=== PATIENT | female | born 1945 | race Caucasian/White ===

== ENCOUNTER 2023-12-30 18:44 | Inpatient (IN) | payer OTHER, SELFPAY ==
--- NOTE | ~2023-12-30 | CT_ITS ---
EXAMINATION: CT HEAD WITHOUT CONTRAST CLINICAL INFORMATION: Altered mental status. COMPARISON: No relevant prior imaging. TECHNIQUE: Contiguous axial imaging was performed from the skull base to vertex without intravenous administration of contrast. This CT examination was performed using dose optimization techniques as appropriate, variously including the following: *Automated exposure control *Adjustment of mA and/or kV according to patient size (this includes techniques or standardized protocols for targeted exams where dose is matched to indication/reason for exam; i.e. extremities or head) *Use of iterative reconstruction technique DLP: 675 mGy-cm FINDINGS: There is no acute intracranial hemorrhage or abnormal extra-axial collection. No intracranial mass effect or midline shift. Lateral and third ventricles are proportionate to the subarachnoid spaces. No hydrocephalus. Scattered nonspecific foci of hypoattenuation are visualized within the periventricular white matter. Robertson-white matter differentiation is otherwise preserved and there is no evidence of acute territorial infarct. The calvarium and skull base are intact. Mastoid air cells and middle ear cavities are well aerated. Mild paranasal sinus disease primarily affecting the ethmoid air cells. Severe degenerative arthrosis of the right temporomandibular joint is noted. CT/CT head/brain wo IV con IMPRESSION: There are scattered chronic small vessel ischemic changes within the periventricular white matter. Otherwise unremarkable examination. No evidence of acute territorial infarct or hemorrhage.
[2023-12-30 20:08] VITALS: BMI 17.2
[2023-12-30 20:09] VITALS: BP 150/67; PULSE 89; RESP 18; TEMP 36.6; O2SAT 99
--- NOTE | 2023-12-31 00:03 | HO.PSYEVENT2 ---
Event Note Date of Service: 12/31/23 Psych On-Call Event Note: Patient referred from [facility] no acute neurologic findings status post fall history of reported schizophrenia question of dementia referred for [facility] psychiatric admission brain imaging completed reportedly has been on olanzapine Time Spent With Patient Time: Total time managing care of this patient today ____ minutes.
[2023-12-31] MEDS: OLANZapine 2.5 MG TABLET PO ×2 (01:20→20:08)
[2023-12-31] MEDS: traZODone HCL 50 MG TABLET PO (01:20)
--- NOTE | 2023-12-31 03:49 | PC.ADMIT ---
pt is a hospital to hospital transfer from [facility], she arrived on unit 12/30/23 at 1855 via stretcher, Signed CV, pt was A&O(3), pleasant, cooperative, confused with limited insight. NKA, pt presented to [facility] with +AH and delusions after falling down on her was to [facility]. pt addresses her self as Rachele, when she talks to her self, pt was very critical of herself, +AH. pt denies SI and HI, Psych HX: Schizophrenia, depression. Medical Hx: Osteoporosis, hyperlipidemia, GERD, Impaired fasting Glucose, Underweight. No ETOH or Substance Abuse Hx. pt reports good apatite. pt up late d/t admission, went to sleep after HS meds with PRN trazodone.
[2023-12-31 07:39] LABS: Alanine Aminotransferase 77 U/L (0-31); Alkaline Phosphatase 83 U/L (39-117); Anion Gap 15 (12-20); Aspartate Amino Transferase 54 U/L (5-31); Bilirubin Total 0.5 mg/dL (0.0-1.0); Blood Urea Nitrogen 20 mg/dL (9-16); Calcium 9.5 mg/dL (8.4-10.2); Carbon Dioxide 26 mmol/L (22-29); Chloride 107 mmol/L (96-108); Cholesterol 271 mg/dL (<200); Creatinine Clr Calc Pharmacy 40.8; Estimated Glomerular Filt Rate > 60; Glucose Fasting 98 mg/dL (60-99); HDL Cholesterol 60 mg/dL (>40); LDL Cholesterol Calculated 189 mg/dL (<100); Potassium 4.6 mmol/L (3.3-5.1); Sodium 143 mmol/L (135-145); Triglycerides 111 mg/dL (<150)
--- NOTE | 2023-12-31 09:40 | P.HPPS_ITS ---
HPI Date of Service: 12/31/23 Chief Complaint: inability to care for self Sources of Information: patient interviewed, chart reviewed and crisis/core team assessment reviewed HPI Subjective Notes: Conditional Voluntary Healthcare Proxy: Yes Narrative: Ms. Demarco is a 78 year-old with dementia, prior hx of delusional disorder who initially self presented to [facility] on 12/24 reporting a fall. In the ED, she was described as unable to provide further information in terms of the fall and reported things like that she was breast feeding. She was not oriented to place, vaguely to situation. She was medically admitted to rule out delayed brain bleed. Medical work up in ED, included head CT which did not show acute pathology- no intracraneal bleed, no mass nor hydrocephalus. CBC without leukocitosys, CMP without electrolyte abnormalities. UA no signs of UTI. On the unit, pt presents as pleasant. She is unable to tell why she is on the unit and states someone responsible recommended that I come here. Furthermore, pt reports she thinks she has been living here on the unit probably for about one year. She states things get lost here often. She denies any concerns. When asked about suicidal or homicidal ideation, she adamantly denies any plan or intent or thoughts to harm herself. She denies hearing or seeing things. She does not appear internally preoccupied more than with severe memory impairments and confabulation. She denies any physical concerns. Past Psychiatric History: Inpt: apparently more than 20 years ago OP: [facility] Past medication trials: olanzapine Medical Evaluation Reviewed: Yes [facility] Medical History (Updated 01/01/24 @ 08:37 by Keily Linton) Anxiety Osteoarthritis Family History: unknown Social History: Pt has 2 sons. she is . Substance History: none Trauma History: not disclosed Diagnostics Vital Signs (24Hr): Vital Signs - 24 hr 12/30/23 20:09 Temperature 97.9 F Pulse Rate 89 Respiratory Rate 18 Blood Pressure 150/67 H Pulse Oximetry 99 Oxygen Delivery Method Room Air BMI result Body Mass Index 17.2 Labs 12/31/23 06:38 Labs: Laboratory Results - last 48 hr 12/31/23 06:38 Sodium 143 Potassium 4.6 Chloride 107 Carbon Dioxide 26 Anion Gap 15 BUN 20 H Creatinine 0.85 Estim Creat Clear Calc 40.8 Estimated GFR > 60 Fasting Glucose 98 Calcium 9.5 Total Bilirubin 0.5 AST 54 H ALT 77 H Alkaline Phosphatase 83 Total Protein 7.0 Albumin 4.0 Triglycerides 111 Cholesterol 271 H LDL Cholesterol, Calc 189 H HDL Cholesterol 60 Meds/Allergies Meds Home Medications Medication Instructions Recorded Confirmed Type calcium citrate 1,000 mg tablet 2,400 mg PO DAILY 12/30/23 12/30/23 History olanzapine 2.5 mg tablet (Zyprexa) 2.5 mg PO BEDTIME 12/30/23 12/30/23 History Allergies Allergies Allergy/AdvReac Type Severity Reaction Status Date / Time No Known Allergies Allergy Verified 12/31/23 00:14 Mental Status Exam Mental Status Exam Narrative: Appearance: wearing casual clothing. Fair hygiene, in NAD Behavior: cooperative Psychomotor: no agitation or retardation noted Speech: clear, normal rate, some delayed in response but mostly as she is trying to retrieve information, spontaneous TP: some degree of expressive aphasia TC: feeling well, trying to find a call lee Mood: good Affect: congruent, and bright, non labile SI: denies HI: denies VH/AH: does not appear internally preoccupied Delusions: no overt delusions but clear confabulation Insight/judgment: impaired x 2 Memory/cog: alert, not oriented to place, situation, year (1024). severe impairments. Assessment & Plan Assessment & Plan (1) Major neurocognitive disorder: Status: Acute Code(s): F03.90 - Unspecified dementia, unspecified severity, without behavioral disturbance, psychotic disturbance, mood disturbance, and anxiety Plan Mrs. Mistry is a 78 year-old woman who initially presented to [facility] due to fall. In the ED, she was unable to provide much information, and did not know how long she had been there, also made some bizarre comments such as that she was breast feeding. Here, she is not oriented to situation, thinks she has been here for about one year and things get lost. Severe impairment in her ability to retain new information, orientation. Positive for confabulation but do not see overt delusional content. She is pleasant and in good behavioral control. PLAN 1. Admit to S1, CV, 15 minutes checks 2. obtain collateral information 3. aftercare planning- seems needs placement. Patient educated on: diagnosis and medication risk/benefits Reason for continued inpatient stay Substantial Risk for: inability to function Statement Statement: I have reviewed the history and physical and performed a pertinent examination on my patient. No changes have occurred unless specified. If the History and Physical was not performed prior to admission, the Hospitalist's service will be consulted for completing the admission physical. Time Spent With Patient Time: Total time managing care of this patient today ____ minutes.
[2023-12-31 11:05] VITALS: BP 121/60; PULSE 75; RESP 16; TEMP 36.8; O2SAT 99
--- NOTE | 2023-12-31 11:13 | P.CONHOSP_ITS ---
History of Present Illness Data of Consult Service Date: 12/31/23 Primary Care Provider: Unknown Physician HPI Reason for consult: Admission H&P Pt is a 78-year-old female with a PMH significant for?osteoporosis, depression, and schizophrenia who is admitted to [facility] for increasing anxiety and nervousness. Patient initially presented to [facility] for evaluation after fall at home. Patient was found to be alert and oriented to self only, not to time, situation or fully to place. CT of head was negative for acute intracranial pathology, and had well-preserved great white matter differentiation. Medical consult for admission H&P. ?Patient seen and evaluated in room where she is found resting comfortably in bed. Patient markedly confused, alert to self only. Gives the date of 1024. Unsure why she is here but believes it will be good for her as it will provide her with the opportunity to better know myself. Pt has not acute medical complaints other than she lay down in bed because she was feeling cold. Labs reviewed, grossly unremarkable. Review of Systems 2 Review of Systems: Patient has no acute medical complaints at this time [facility] Medical History (Updated 12/31/23 @ 13:23 by JULISSA Deng) Anxiety Osteoarthritis Social History Household Members: None Household Members Other:: Pt lives on her own Housing: Apartment Do you presently have visiting nurse or other home services: No Patient Tobacco Use Status: Never used Tobacco Smoked in Last 30 Days: No e-Cigarette/Vaping Use: Never Used Patient Interested in Nicotine Replacement: No Patient Given Instructions on How to Stop Smoking: No Second Hand Smoke Exposure: No Use of substances other than those prescribed or required for medical reasons: No Currently Displaying Signs/Symptoms of Drug Intoxication Withdrawal: No Any prior treatment program specific to substance use: No Have you been hit, kicked, punched, or otherwise hurt by someone within the past year? If so, by whom?: No Do you feel safe in your current relationship?: No Is there a partner from a previous relationship who is making you feel unsafe now?: No Are you made to feel afraid or neglected: No Advance Directives: No Advance Directives Information Provided: No Do you have thoughts of harming others: None Do you have a plan to hurt others: No Plan Recently lost weight without trying: No Eating poorly because of decreased appetite: No Nutrition Risks: No Nutritional Risk Patient : No : No Poor oral hygiene: No Meds Allergies Allergy/AdvReac Type Severity Reaction Status Date / Time No Known Allergies Allergy Verified 12/31/23 00:14 Active Medications: Current Medications Acetaminophen (Acetaminophen 325 Mg Tablet) 650 mg PO Q6H PRN PRN Reason: Headache/Pain Mild Scale (1-3) Al Hydroxide/Mg Hydroxide (Magnesium Hydrox/Alum Hydrox 30 Ml Oral.Susp) 30 ml PO Q6H PRN PRN Reason: Heartburn/Nausea Hydroxyzine HCl (Hydroxyzine Hcl 25 Mg Tablet) 25 mg PO Q6H PRN PRN Reason: Anxiety Magnesium Hydroxide (Milk Of Magnesia 30 Ml Oral.Susp) 30 ml PO DAILY PRN PRN Reason: Constipation Olanzapine (Olanzapine 2.5 Mg Tablet) 2.5 mg PO BEDTIME JAMI Last Admin: 12/31/23 01:20 Dose: 2.5 mg Trazodone HCl (Trazodone Hcl 50 Mg Tablet) 50 mg PO BEDTIME MRX1 PRN PRN Reason: Insomnia Last Admin: 12/31/23 01:20 Dose: 50 mg Home Medications Medication Instructions Recorded Confirmed Last Taken Type calcium citrate 1,000 mg tablet 2,400 mg PO DAILY 12/30/23 12/30/23 Unknown History olanzapine 2.5 mg tablet (Zyprexa) 2.5 mg PO BEDTIME 12/30/23 12/30/23 Unknown History Physical Exam 2 Vital Signs and Narrative: Vital Signs: Last Vital Signs Temp 97.9 F 12/30/23 20:09 Pulse 89 12/30/23 20:09 Resp 18 12/30/23 20:09 BP 150/67 H 12/30/23 20:09 Pulse Ox 99 12/30/23 20:09 O2 Del Method Room Air 12/30/23 20:09 BMI result Body Mass Index 17.2 General: Alert and oriented to self only, resting comfortably in bed, in no acute distress Resp: CTA bilaterally CVS: S1, S2, RRR GI: +BS, NT, no distention Skin: Warm, dry Neuro: Cranial nerves II-XII grossly intact bilaterally. Motor grossly intact bilaterally. Globalized weakness Extremities: No edema Psych: Pleasantly confused Results Labs 12/31/23 06:38 Labs: Laboratory Results - last 24 hr 12/31/23 06:38 Anion Gap 15 Estim Creat Clear Calc 40.8 Estimated GFR > 60 Fasting Glucose 98 Calcium 9.5 Total Bilirubin 0.5 AST 54 H ALT 77 H Alkaline Phosphatase 83 Total Protein 7.0 Albumin 4.0 Triglycerides 111 Cholesterol 271 H LDL Cholesterol, Calc 189 H HDL Cholesterol 60 Assessment and Plan (1) Medical clearance for psychiatric admission: Status: Acute Plan Pt is a 78-year-old female with a PMH significant for?osteoporosis, depression, and schizophrenia who is admitted to [facility] for increasing anxiety and nervousness. Patient initially presented to [facility] for evaluation after fall at home. Patient was found to be alert and oriented to self only, not to time, situation or fully to place. CT of head was negative for acute intracranial pathology, and had well-preserved great white matter differentiation. Medical consult for admission H&P. Mood disorder Plan as per psychiatry Pt otherwise has no acute medical compalaints and does not appear to be on any chronic medications. Thank you for allowing us to participate in the care of this patient. Signing off at this time. Please re-consult if any acute complaints or issues arise.
[2023-12-31 18:00] VITALS: BP 124/58; PULSE 80; RESP 16; TEMP 36.1; O2SAT 98
[2024-01-01 08:30] VITALS: BP 125/69; PULSE 88; RESP 18; TEMP 36.4; O2SAT 99
--- NOTE | 2024-01-01 08:48 | HO.PSYCHPN ---
Subjective Subjective Date of Service: 01/01/24 Reason For Visit: inability to care for self Subjective Notes: Conditional Voluntary Interim History: Pt presents as pleasant. She reports she had a regular day refering to the day prior. She states I wasn't cold. Could not provide more details. She denies SI/HI. She states she is planning to spend some time with her friends no behavioral concerns. Review of Systems Review of Systems Patient has no acute medical complaints at this time Mental Status Exam Mental Status Exam Narrative: Appearance: wearing casual clothing. Fair hygiene, in NAD Behavior: cooperative Psychomotor: no agitation or retardation noted Speech: clear, normal rate, some delayed in response but mostly as she is trying to retrieve information, spontaneous TP: some degree of expressive aphasia TC: feeling well, trying to find a call lee Mood: good Affect: congruent, and bright, non labile SI: denies HI: denies VH/AH: does not appear internally preoccupied Delusions: no overt delusions but clear confabulation Insight/judgment: impaired x 2 Memory/cog: alert, not oriented to place, situation, year (1024). severe impairments. Diagnostics Vital Signs (24Hr): Vital Signs - 24 hr 12/31/23 11:05 12/31/23 18:00 01/01/24 08:30 Temperature 98.3 F 97 F 97.5 F Pulse Rate 75 80 88 Respiratory Rate 16 16 18 Blood Pressure 121/60 124/58 L 125/69 Pulse Oximetry 99 98 99 Oxygen Delivery Method Room Air Room Air Room Air BMI result Body Mass Index 17.2 Labs 12/31/23 06:38 Labs: Laboratory Results - last 48 hr 12/31/23 06:38 Sodium 143 Potassium 4.6 Chloride 107 Carbon Dioxide 26 Anion Gap 15 BUN 20 H Creatinine 0.85 Estim Creat Clear Calc 40.8 Estimated GFR > 60 Fasting Glucose 98 Calcium 9.5 Total Bilirubin 0.5 AST 54 H ALT 77 H Alkaline Phosphatase 83 Total Protein 7.0 Albumin 4.0 Triglycerides 111 Cholesterol 271 H LDL Cholesterol, Calc 189 H HDL Cholesterol 60 Medications Medications Current Medications Acetaminophen (Acetaminophen 325 Mg Tablet) 650 mg PO Q6H PRN PRN Reason: Headache/Pain Mild Scale (1-3) Al Hydroxide/Mg Hydroxide (Magnesium Hydrox/Alum Hydrox 30 Ml Oral.Susp) 30 ml PO Q6H PRN PRN Reason: Heartburn/Nausea Hydroxyzine HCl (Hydroxyzine Hcl 25 Mg Tablet) 25 mg PO Q6H PRN PRN Reason: Anxiety Magnesium Hydroxide (Milk Of Magnesia 30 Ml Oral.Susp) 30 ml PO DAILY PRN PRN Reason: Constipation Olanzapine (Olanzapine 2.5 Mg Tablet) 2.5 mg PO BEDTIME JAMI Last Admin: 12/31/23 20:08 Dose: 2.5 mg Trazodone HCl (Trazodone Hcl 50 Mg Tablet) 50 mg PO BEDTIME MRX1 PRN PRN Reason: Insomnia Last Admin: 12/31/23 01:20 Dose: 50 mg Allergies Allergies Allergy/AdvReac Type Severity Reaction Status Date / Time No Known Allergies Allergy Verified 12/31/23 00:14 Assessment & Plan Assessment & Plan (1) Major neurocognitive disorder: Status: Acute Code(s): F03.90 - Unspecified dementia, unspecified severity, without behavioral disturbance, psychotic disturbance, mood disturbance, and anxiety Plan continue tx. Reason for continued inpatient stay Substantial Risk for: inability to function Time Spent With Patient Time: Total time managing care of this patient today ____ minutes.
[2024-01-01 14:05] VITALS: BMI 18.3
--- NOTE | 2024-01-01 14:13 | MHC.CLN ---
NUTRITION DIET=REGULAR. VISITED WITH PATIENT IN HER ROOM. WOULD LIKE ENSURE SUPPLEMENT. ADDED ENSURE BID (700 KCALS, 40 G PROTEIN). DISCUSSED INTAKE/APPETITE. STATED, I'M EATING MORE HERE . QUALIFIES MODERATELY MALNOURISHED. CONTINUE REGULAR DIET WITH SUPPLEMENT. ENCOURAGE PO ABLE. SEE CLINICAL NUTRITION ASSESSMENT 01/01/24.
[2024-01-01 20:41] VITALS: BP 151/68; PULSE 90; RESP 17; TEMP 36.6; O2SAT 99
[2024-01-01] MEDS: OLANZapine 2.5 MG TABLET PO (21:00)
[2024-01-02 06:00] VITALS: BP 131/68; PULSE 86; RESP 18; TEMP 36.7; O2SAT 98
--- NOTE | 2024-01-02 08:02 | P.PNPSI_ITS ---
Subjective Subjective Date of Service: 01/02/24 Reason For Visit: inability to care for self Subjective Notes: Conditional Voluntary Interim History: The nursing staff reported the patient had been compliant with medications she has been pleasant and cooperative confused but easily redirectable. On interview the patient denies active auditory hallucinations. No side effects with Zyprexa 2.5 mg p.o. q.h.s. Mental Status Exam Mental Status Exam Patient Appearance: Appropriate Patient Orientation: Person and Situation Level of Consciousness: Awake and Appropriate Patient Behavior: Guarded and Passive Mood Description: Calm Affect Description: Constricted Patient Cognition Impaired: Yes Ability to Follow Directions: Good Speech Pattern: Clear Hallucinations: None Delusions: Ideas of Reference Thought Process: Distracted and Slowed Thinking Thought Content: positive for [place] and positive for Poverty of Content Judgement: Fair Diagnostics Vital Signs (24Hr): Vital Signs - 24 hr 01/01/24 08:30 01/01/24 20:41 Temperature 97.5 F 98 F Pulse Rate 88 90 Respiratory Rate 18 17 Blood Pressure 125/69 151/68 H Pulse Oximetry 99 99 Oxygen Delivery Method Room Air Room Air BMI result Body Mass Index 18.3 Labs 12/31/23 06:38 Imaging Radiology Impressions: ITS Impressions Head CT 01/01/24 09:46 IMPRESSION: There are scattered chronic small vessel ischemic changes within the periventricular white matter. Otherwise unremarkable examination. No evidence of acute territorial infarct or hemorrhage. Medications Medications Current Medications Acetaminophen (Acetaminophen 325 Mg Tablet) 650 mg PO Q6H PRN PRN Reason: Headache/Pain Mild Scale (1-3) Al Hydroxide/Mg Hydroxide (Magnesium Hydrox/Alum Hydrox 30 Ml Oral.Susp) 30 ml PO Q6H PRN PRN Reason: Heartburn/Nausea Hydroxyzine HCl (Hydroxyzine Hcl 25 Mg Tablet) 25 mg PO Q6H PRN PRN Reason: Anxiety Magnesium Hydroxide (Milk Of Magnesia 30 Ml Oral.Susp) 30 ml PO DAILY PRN PRN Reason: Constipation Olanzapine (Olanzapine 2.5 Mg Tablet) 2.5 mg PO BEDTIME JAMI Last Admin: 01/01/24 21:00 Dose: 2.5 mg Trazodone HCl (Trazodone Hcl 50 Mg Tablet) 50 mg PO BEDTIME MRX1 PRN PRN Reason: Insomnia Last Admin: 12/31/23 01:20 Dose: 50 mg Allergies Allergies Allergy/AdvReac Type Severity Reaction Status Date / Time No Known Allergies Allergy Verified 12/31/23 00:14 Assessment & Plan Assessment & Plan (1) Major neurocognitive disorder: Status: Acute Code(s): F03.90 - Unspecified dementia, unspecified severity, without behavioral disturbance, psychotic disturbance, mood disturbance, and anxiety Plan Pt is a 78-year-old female with a PMH significant for?osteoporosis, depression, and schizophrenia who is admitted to [facility] for increasing anxiety and nervousness. Patient initially presented to [facility] for evaluation after fall at home. Patient was found to be alert and oriented to self only, not to time, situation or fully to place. CT of head was negative for acute intracranial pathology, and had well-preserved great white matter differentiation. Medical consult for admission H&P. Mood disorder Plan as per psychiatry Pt otherwise has no acute medical compalaints and does not appear to be on any chronic medications. Thank you for allowing us to participate in the care of this patient. Signing off at this time. Please re-consult if any acute complaints or issues arise. Plan 1. Continue Zyprexa 2.5 p.o. q.h.s. to target psychosis. Reason for continued inpatient stay Substantial Risk for: inability to function, rapid decompensation and med/psych decompensation Time Spent With Patient Time: Total time managing care of this patient today __20__ minutes.
[2024-01-02 20:37] VITALS: BP 148/65; PULSE 80; RESP 16; TEMP 36.3; O2SAT 97
[2024-01-02] MEDS: OLANZapine 2.5 MG TABLET PO (20:40)
[2024-01-03 07:45] VITALS: BP 125/67; PULSE 96; RESP 16; TEMP 36.7; O2SAT 98
--- NOTE | 2024-01-03 10:03 | P.PNPSI_ITS ---
Subjective Subjective Date of Service: 01/03/24 Reason For Visit: inability to care for self Subjective Notes: Conditional Voluntary Interim History: The nursing staff reported the patient slept well 8 hours. On interview the patient denies new symptoms she looks pleasantly confused denies auditory hallucinations. Mental Status Exam Mental Status Exam Patient Appearance: Well Grooomed and Appropriate Patient Orientation: Person and Situation Level of Consciousness: Awake and Appropriate Patient Behavior: Guarded and Passive Mood Description: Withdrawn Affect Description: Constricted Patient Cognition Impaired: Yes Ability to Follow Directions: Good Speech Pattern: Clear Hallucinations: None Delusions: Grandiose and Ideas of Reference Thought Process: Distracted Thought Content: positive for [place] and positive for Poverty of Content Judgement: Fair Diagnostics Vital Signs (24Hr): Vital Signs - 24 hr 01/02/24 20:37 01/03/24 07:45 Temperature 97.3 F 98.0 F Pulse Rate 80 96 Respiratory Rate 16 16 Blood Pressure 148/65 H 125/67 Pulse Oximetry 97 98 Oxygen Delivery Method Room Air Room Air BMI result Body Mass Index 18.3 Labs 12/31/23 06:38 Imaging Radiology Impressions: ITS Impressions Head CT 01/01/24 09:46 IMPRESSION: There are scattered chronic small vessel ischemic changes within the periventricular white matter. Otherwise unremarkable examination. No evidence of acute territorial infarct or hemorrhage. Medications Medications Current Medications Acetaminophen (Acetaminophen 325 Mg Tablet) 650 mg PO Q6H PRN PRN Reason: Headache/Pain Mild Scale (1-3) Al Hydroxide/Mg Hydroxide (Magnesium Hydrox/Alum Hydrox 30 Ml Oral.Susp) 30 ml PO Q6H PRN PRN Reason: Heartburn/Nausea Hydroxyzine HCl (Hydroxyzine Hcl 25 Mg Tablet) 25 mg PO Q6H PRN PRN Reason: Anxiety Magnesium Hydroxide (Milk Of Magnesia 30 Ml Oral.Susp) 30 ml PO DAILY PRN PRN Reason: Constipation Olanzapine (Olanzapine 2.5 Mg Tablet) 2.5 mg PO BEDTIME JAMI Last Admin: 01/02/24 20:40 Dose: 2.5 mg Trazodone HCl (Trazodone Hcl 50 Mg Tablet) 50 mg PO BEDTIME MRX1 PRN PRN Reason: Insomnia Last Admin: 12/31/23 01:20 Dose: 50 mg Allergies Allergies Allergy/AdvReac Type Severity Reaction Status Date / Time No Known Allergies Allergy Verified 12/31/23 00:14 Assessment & Plan Assessment & Plan (1) Major neurocognitive disorder: Status: Acute Code(s): F03.90 - Unspecified dementia, unspecified severity, without behavioral disturbance, psychotic disturbance, mood disturbance, and anxiety Plan Pt is a 78-year-old female with a PMH significant for?osteoporosis, depression, and schizophrenia who is admitted to [facility] for increasing anxiety and nervousness. Patient initially presented to [facility] for evaluation after fall at home. Patient was found to be alert and oriented to self only, not to time, situation or fully to place. CT of head was negative for acute intracranial pathology, and had well-preserved great white matter differentiation. Medical consult for admission H&P. Mood disorder Plan as per psychiatry Pt otherwise has no acute medical compalaints and does not appear to be on any chronic medications. Thank you for allowing us to participate in the care of this patient. Signing off at this time. Please re-consult if any acute complaints or issues arise. Plan 1. Continue Zyprexa 2.5 p.o. q.h.s. to target psychosis. Reason for continued inpatient stay Substantial Risk for: inability to function, rapid decompensation and med/psych decompensation Time Spent With Patient Time: Total time managing care of this patient today _20___ minutes.
[2024-01-03 19:35] VITALS: BP 166/88; PULSE 87; RESP 18; TEMP -16.6; TEMP 2; O2SAT 98
[2024-01-03] MEDS: OLANZapine 2.5 MG TABLET PO (20:31)
[2024-01-04 07:50] VITALS: BP 129/59; PULSE 100; RESP 18; TEMP 36.9; O2SAT 97
--- NOTE | 2024-01-04 17:00 | P.PNPSI_ITS ---
Subjective Subjective Date of Service: 01/04/24 Reason For Visit: inability to care for self Medical Problems Affecting Mental Status: No Interim History: The nursing staff reported the patient slept well 8 hours. Pt seen in common area; she is working on art project; reports she feels good; no comlaints. On interview the patient denies new symptoms she looks pleasantly confused denies auditory hallucinations. Medication Compliance: Yes Side effects from medications: No Attending Groups: Yes Review of Systems Acute medical concerns: No Medical Review of Systems: unchanged Review of Systems Review of Systems Patient has no acute medical complaints at this time Mental Status Exam Mental Status Exam Narrative: Appearance: wearing casual clothing. Fair hygiene, in NAD Behavior: cooperative Psychomotor: no agitation or retardation noted Speech: clear, normal rate, some delayed in response but mostly as she is trying to retrieve information, spontaneous TP: some degree of expressive aphasia TC: feeling well, trying to find a call lee Mood: good Affect: congruent, and bright, non labile SI: denies HI: denies VH/AH: does not appear internally preoccupied Delusions: no overt delusions but clear confabulation Insight/judgment: impaired x 2 Memory/cog: alert, not oriented to place, situation, year (1024). severe impairments. Patient Appearance: Well Grooomed and Appropriate Patient Orientation: Person and Situation Level of Consciousness: Awake and Appropriate Patient Behavior: Guarded and Passive Mood Description: Withdrawn Affect Description: Constricted Patient Cognition Impaired: Yes Ability to Follow Directions: Good Speech Pattern: Clear Judgement: Fair Diagnostics Vital Signs (24Hr): Vital Signs - 24 hr 01/03/24 19:35 01/04/24 07:50 Temperature 2 F L 98.5 F Pulse Rate 87 100 Respiratory Rate 18 18 Blood Pressure 166/88 H 129/59 L Pulse Oximetry 98 97 Oxygen Delivery Method Room Air Room Air BMI result Body Mass Index 18.3 Labs 12/31/23 06:38 Imaging Radiology Impressions: ITS Impressions Head CT 01/01/24 09:46 IMPRESSION: There are scattered chronic small vessel ischemic changes within the periventricular white matter. Otherwise unremarkable examination. No evidence of acute territorial infarct or hemorrhage. Medications Medications Current Medications Acetaminophen (Acetaminophen 325 Mg Tablet) 650 mg PO Q6H PRN PRN Reason: Headache/Pain Mild Scale (1-3) Al Hydroxide/Mg Hydroxide (Magnesium Hydrox/Alum Hydrox 30 Ml Oral.Susp) 30 ml PO Q6H PRN PRN Reason: Heartburn/Nausea Hydroxyzine HCl (Hydroxyzine Hcl 25 Mg Tablet) 25 mg PO Q6H PRN PRN Reason: Anxiety Magnesium Hydroxide (Milk Of Magnesia 30 Ml Oral.Susp) 30 ml PO DAILY PRN PRN Reason: Constipation Olanzapine (Olanzapine 2.5 Mg Tablet) 2.5 mg PO BEDTIME JAMI Last Admin: 01/03/24 20:31 Dose: 2.5 mg Trazodone HCl (Trazodone Hcl 50 Mg Tablet) 50 mg PO BEDTIME MRX1 PRN PRN Reason: Insomnia Last Admin: 12/31/23 01:20 Dose: 50 mg Allergies Allergies Allergy/AdvReac Type Severity Reaction Status Date / Time No Known Allergies Allergy Verified 12/31/23 00:14 Assessment & Plan Assessment & Plan (1) Major neurocognitive disorder: Status: Acute Code(s): F03.90 - Unspecified dementia, unspecified severity, without behavioral disturbance, psychotic disturbance, mood disturbance, and anxiety Plan Pt is a 78-year-old female with a PMH significant for?osteoporosis, depression, and schizophrenia who is admitted to [facility] for increasing anxiety and nervousness. Patient initially presented to [facility] for evaluation after fall at home. Patient was found to be alert and oriented to self only, not to time, situation or fully to place. CT of head was negative for acute intracranial pathology, and had well-preserved great white matter differentiation. Medical consult for admission H&P. Mood disorder Plan as per psychiatry Pt otherwise has no acute medical compalaints and does not appear to be on any chronic medications. Thank you for allowing us to participate in the care of this patient. Signing off at this time. Please re-consult if any acute complaints or issues arise. Plan 1. Continue Zyprexa 2.5 p.o. q.h.s. to target psychosis. 01/04/continue tx plan Patient educated on: medication risk/benefits and therapeutic strategies Informed Consent: further education needed Reason for continued inpatient stay Substantial Risk for: inability to function and rapid decompensation Time Spent With Patient Time: Total time managing care of this patient today ____ minutes.
[2024-01-04 18:00] VITALS: BP 123/58; PULSE 74; RESP 18; TEMP 37.2; O2SAT 99
[2024-01-04] MEDS: OLANZapine 2.5 MG TABLET PO (20:53)
[2024-01-04] MEDS: hydrOXYzine HCL 25 MG TABLET PO (20:53)
[2024-01-04] MEDS: traZODone HCL 50 MG TABLET PO (20:54)
[2024-01-05 08:00] VITALS: BP 107/54; PULSE 93; RESP 18; TEMP 36.7; O2SAT 97
--- NOTE | 2024-01-05 10:57 | P.PNPSI_ITS ---
Subjective Subjective Date of Service: 01/05/24 Reason For Visit: inability to care for self Subjective Notes: Conditional Voluntary Interim History: Pt slept most of the night. She has been taking medications as prescribed. MOCA completed and she scored 8/30. ACL 4.2 Pt has been visible on the unit. She is social with select peers. She had attended groups and appears to enjoy them. No signs of paranoia or psychosis. However, she is not oriented to place, situation. We had family meeting with her son to discuss results of MOCA and need for 24hr/7 supervision. Pt is able to show understanding as to what HCP is and she signed a new one electing son as HCP. Medication Compliance: Yes Review of Systems Review of Systems Patient has no acute medical complaints at this time Mental Status Exam Mental Status Exam Narrative: Appearance: wearing casual clothing. Fair hygiene, in NAD Behavior: cooperative Psychomotor: no agitation or retardation noted Speech: clear, normal rate, some delayed in response but mostly as she is trying to retrieve information, spontaneous TP: some degree of expressive aphasia TC: feeling well, trying to find a call lee Mood: good Affect: congruent, and bright, non labile SI: denies HI: denies VH/AH: does not appear internally preoccupied Delusions: no overt delusions but clear confabulation Insight/judgment: impaired x 2 Memory/cog: alert, not oriented to place, situation, year (1024). severe impairments. Diagnostics Vital Signs (24Hr): Vital Signs - 24 hr 01/04/24 18:00 01/05/24 06:00 Temperature 99 F 98.0 F Pulse Rate 74 93 Respiratory Rate 18 18 Blood Pressure 123/58 L 107/54 L Pulse Oximetry 99 97 Oxygen Delivery Method Room Air Room Air BMI result Body Mass Index 18.3 Labs 12/31/23 06:38 Imaging Radiology Impressions: ITS Impressions Head CT 01/01/24 09:46 IMPRESSION: There are scattered chronic small vessel ischemic changes within the periventricular white matter. Otherwise unremarkable examination. No evidence of acute territorial infarct or hemorrhage. Medications Medications Current Medications Acetaminophen (Acetaminophen 325 Mg Tablet) 650 mg PO Q6H PRN PRN Reason: Headache/Pain Mild Scale (1-3) Al Hydroxide/Mg Hydroxide (Magnesium Hydrox/Alum Hydrox 30 Ml Oral.Susp) 30 ml PO Q6H PRN PRN Reason: Heartburn/Nausea Hydroxyzine HCl (Hydroxyzine Hcl 25 Mg Tablet) 25 mg PO Q6H PRN PRN Reason: Anxiety Last Admin: 01/04/24 20:53 Dose: 25 mg Magnesium Hydroxide (Milk Of Magnesia 30 Ml Oral.Susp) 30 ml PO DAILY PRN PRN Reason: Constipation Olanzapine (Olanzapine 2.5 Mg Tablet) 2.5 mg PO BEDTIME JAMI Last Admin: 01/04/24 20:53 Dose: 2.5 mg Trazodone HCl (Trazodone Hcl 50 Mg Tablet) 50 mg PO BEDTIME MRX1 PRN PRN Reason: Insomnia Last Admin: 01/04/24 20:54 Dose: 50 mg Allergies Allergies Allergy/AdvReac Type Severity Reaction Status Date / Time No Known Allergies Allergy Verified 12/31/23 00:14 Assessment & Plan Assessment & Plan (1) Major neurocognitive disorder: Status: Acute Code(s): F03.90 - Unspecified dementia, unspecified severity, without behavioral disturbance, psychotic disturbance, mood disturbance, and anxiety Plan Pt is a 78-year-old female with a PMH significant for?osteoporosis, depression, and schizophrenia who is admitted to [facility] for increasing anxiety and nervousness. Patient initially presented to [facility] for evaluation after fall at home. Patient was found to be alert and oriented to self only, not to time, situation or fully to place. CT of head was negative for acute intracranial pathology, and had well-preserved great white matter differentiation. Medical consult for admission H&P. Mood disorder Plan as per psychiatry Pt otherwise has no acute medical compalaints and does not appear to be on any chronic medications. Thank you for allowing us to participate in the care of this patient. Signing off at this time. Please re-consult if any acute complaints or issues arise. Plan 1. Continue Zyprexa 2.5 p.o. q.h.s. 01/04/continue tx plan 01/05. continue tx. Reason for continued inpatient stay Substantial Risk for: inability to function Time Spent With Patient Time: Total time managing care of this patient today ____ minutes.
[2024-01-05] MEDS: hydrOXYzine HCL 25 MG TABLET PO (11:27)
[2024-01-05 18:00] VITALS: BP 121/74; PULSE 101; RESP 18; TEMP 36.6; O2SAT 98
[2024-01-05] MEDS: OLANZapine 2.5 MG TABLET PO (21:24)
[2024-01-06 08:00] VITALS: BP 103/56; PULSE 96; RESP 18; TEMP 36.9; O2SAT 99
--- NOTE | 2024-01-06 13:09 | MHC.CLN ---
F/U DIET=REGULAR. ENSURE SUPPLEMENT BID (700 KCALS, 40 G PROTEIN). INTAKE USUALLY GOOD, WITH MOST MEALS AT LEAST 50%. CONTINUE REGULAR DIET WITH SUPPLEMENT. ENCOURAGE PO ABLE. RD TO FOLLOW WEEKLY.
--- NOTE | 2024-01-06 14:27 | P.PNPSI_ITS ---
Subjective Subjective Date of Service: 01/06/24 Reason For Visit: inability to care for self Subjective Notes: Conditional Voluntary Interim History: Pt slept most of the night. Pt visible on the unit, social with select peers. No SI/HI. No aggression. No delusional content noted or reported. VS stable. Review of Systems Review of Systems Patient has no acute medical complaints at this time Mental Status Exam Mental Status Exam Narrative: Appearance: wearing casual clothing. Fair hygiene, in NAD Behavior: cooperative Psychomotor: no agitation or retardation noted Speech: clear, normal rate, some delayed in response but mostly as she is trying to retrieve information, spontaneous TP: some degree of expressive aphasia TC: feeling well, trying to find a call lee Mood: good Affect: congruent, and bright, non labile SI: denies HI: denies VH/AH: does not appear internally preoccupied Delusions: no overt delusions but clear confabulation Insight/judgment: impaired x 2 Memory/cog: alert, not oriented to place, situation, year (1024). severe impairments. Diagnostics Vital Signs (24Hr): Vital Signs - 24 hr 01/05/24 18:00 01/06/24 08:00 Temperature 97.9 F 98.5 F Pulse Rate 101 H 96 Respiratory Rate 18 18 Blood Pressure 121/74 103/56 L Pulse Oximetry 98 99 Oxygen Delivery Method Room Air Room Air BMI result Body Mass Index 18.3 Labs 12/31/23 06:38 Imaging Radiology Impressions: ITS Impressions Head CT 01/01/24 09:46 IMPRESSION: There are scattered chronic small vessel ischemic changes within the periventricular white matter. Otherwise unremarkable examination. No evidence of acute territorial infarct or hemorrhage. Medications Medications Current Medications Acetaminophen (Acetaminophen 325 Mg Tablet) 650 mg PO Q6H PRN PRN Reason: Headache/Pain Mild Scale (1-3) Al Hydroxide/Mg Hydroxide (Magnesium Hydrox/Alum Hydrox 30 Ml Oral.Susp) 30 ml PO Q6H PRN PRN Reason: Heartburn/Nausea Hydroxyzine HCl (Hydroxyzine Hcl 25 Mg Tablet) 25 mg PO Q6H PRN PRN Reason: Anxiety Last Admin: 01/05/24 11:27 Dose: 25 mg Magnesium Hydroxide (Milk Of Magnesia 30 Ml Oral.Susp) 30 ml PO DAILY PRN PRN Reason: Constipation Olanzapine (Olanzapine 2.5 Mg Tablet) 2.5 mg PO BEDTIME JAMI Last Admin: 01/05/24 21:24 Dose: 2.5 mg Trazodone HCl (Trazodone Hcl 50 Mg Tablet) 50 mg PO BEDTIME MRX1 PRN PRN Reason: Insomnia Last Admin: 01/04/24 20:54 Dose: 50 mg Allergies Allergies Allergy/AdvReac Type Severity Reaction Status Date / Time No Known Allergies Allergy Verified 12/31/23 00:14 Assessment & Plan Assessment & Plan (1) Major neurocognitive disorder: Status: Acute Code(s): F03.90 - Unspecified dementia, unspecified severity, without behavioral disturbance, psychotic disturbance, mood disturbance, and anxiety Plan Pt is a 78-year-old female with a PMH significant for?osteoporosis, depression, and schizophrenia who is admitted to [facility] for increasing anxiety and nervousness. Patient initially presented to [facility] for evaluation after fall at home. Patient was found to be alert and oriented to self only, not to time, situation or fully to place. CT of head was negative for acute intracranial pathology, and had well-preserved great white matter differentiation. Medical consult for admission H&P. Mood disorder Plan as per psychiatry Pt otherwise has no acute medical compalaints and does not appear to be on any chronic medications. Thank you for allowing us to participate in the care of this patient. Signing off at this time. Please re-consult if any acute complaints or issues arise. Plan 1. Continue Zyprexa 2.5 p.o. q.h.s. 01/04/continue tx plan 01/05. continue tx. 01/06 continue tx. Reason for continued inpatient stay Substantial Risk for: inability to function Time Spent With Patient Time: Total time managing care of this patient today ____ minutes.
[2024-01-06 20:57] VITALS: BP 103/69; PULSE 68; RESP 18; TEMP 36.6; O2SAT 98
[2024-01-06] MEDS: OLANZapine 2.5 MG TABLET PO (21:14)
[2024-01-07 06:00] VITALS: BP 104/54; PULSE 98; RESP 18; TEMP 36.5; O2SAT 100
[2024-01-07 07:00] VITALS: BMI 18.3
--- NOTE | 2024-01-07 08:45 | HO.PSYCHPN ---
Subjective Subjective Date of Service: 01/07/24 Reason For Visit: inability to care for self Subjective Notes: Conditional Voluntary Interim History: Pt slept most of the night. Pt visible on the unit, social with select peers. No SI/HI. when this race and sports book writer entered her room, she was talking to her self. when asked who she was talking to, she states it sounds mental, but I can hear my son's voice here in my room. She reports she feels safe here on the unit, states I couldn't have asked for anything better, I love it here. She is pleasant on approach. VS- BP has been on low end of normal. monitor dizziness, ortho VS. Review of Systems Review of Systems Patient has no acute medical complaints at this time Mental Status Exam Mental Status Exam Narrative: Appearance: wearing casual clothing. Fair hygiene, in NAD Behavior: cooperative Psychomotor: no agitation or retardation noted Speech: clear, normal rate, some delayed in response but mostly as she is trying to retrieve information, spontaneous TP: some degree of expressive aphasia TC: feeling well, trying to find a call lee Mood: good Affect: congruent, and bright, non labile SI: denies HI: denies VH/AH: does not appear internally preoccupied Delusions: no overt delusions but clear confabulation Insight/judgment: impaired x 2 Memory/cog: alert, not oriented to place, situation, year (1024). severe impairments. Diagnostics Vital Signs (24Hr): Vital Signs - 24 hr 01/06/24 20:57 Temperature 97.8 F Pulse Rate 68 Respiratory Rate 18 Blood Pressure 103/69 Pulse Oximetry 98 Oxygen Delivery Method Room Air BMI result Body Mass Index 18.3 Labs 12/31/23 06:38 Imaging Radiology Impressions: ITS Impressions Head CT 01/01/24 09:46 IMPRESSION: There are scattered chronic small vessel ischemic changes within the periventricular white matter. Otherwise unremarkable examination. No evidence of acute territorial infarct or hemorrhage. Medications Medications Current Medications Acetaminophen (Acetaminophen 325 Mg Tablet) 650 mg PO Q6H PRN PRN Reason: Headache/Pain Mild Scale (1-3) Al Hydroxide/Mg Hydroxide (Magnesium Hydrox/Alum Hydrox 30 Ml Oral.Susp) 30 ml PO Q6H PRN PRN Reason: Heartburn/Nausea Hydroxyzine HCl (Hydroxyzine Hcl 25 Mg Tablet) 25 mg PO Q6H PRN PRN Reason: Anxiety Last Admin: 01/05/24 11:27 Dose: 25 mg Magnesium Hydroxide (Milk Of Magnesia 30 Ml Oral.Susp) 30 ml PO DAILY PRN PRN Reason: Constipation Olanzapine (Olanzapine 2.5 Mg Tablet) 2.5 mg PO BEDTIME JAMI Last Admin: 01/06/24 21:14 Dose: 2.5 mg Trazodone HCl (Trazodone Hcl 50 Mg Tablet) 50 mg PO BEDTIME MRX1 PRN PRN Reason: Insomnia Last Admin: 01/04/24 20:54 Dose: 50 mg Allergies Allergies Allergy/AdvReac Type Severity Reaction Status Date / Time No Known Allergies Allergy Verified 12/31/23 00:14 Assessment & Plan Assessment & Plan (1) Major neurocognitive disorder: Status: Acute Code(s): F03.90 - Unspecified dementia, unspecified severity, without behavioral disturbance, psychotic disturbance, mood disturbance, and anxiety Plan Pt is a 78-year-old female with a PMH significant for?osteoporosis, depression, and schizophrenia who is admitted to [facility] for increasing anxiety and nervousness. Patient initially presented to [facility] for evaluation after fall at home. Patient was found to be alert and oriented to self only, not to time, situation or fully to place. CT of head was negative for acute intracranial pathology, and had well-preserved great white matter differentiation. Medical consult for admission H&P. Mood disorder Plan as per psychiatry Pt otherwise has no acute medical compalaints and does not appear to be on any chronic medications. Thank you for allowing us to participate in the care of this patient. Signing off at this time. Please re-consult if any acute complaints or issues arise. Plan 1. Continue Zyprexa 2.5 p.o. q.h.s. 01/04/continue tx plan 01/05. continue tx. 01/06 continue tx. will switch to risperidone to target AH. Reason for continued inpatient stay Substantial Risk for: inability to function Time Spent With Patient Time: Total time managing care of this patient today ____ minutes.
[2024-01-07] MEDS: OLANZapine 2.5 MG TABLET PO (21:09)
[2024-01-07 21:39] VITALS: BP 162/72; PULSE 89; RESP 16; TEMP 36.8; O2SAT 100
[2024-01-08 07:30] VITALS: BP 108/53; PULSE 91; RESP 18; TEMP 36.7; O2SAT 99
--- NOTE | 2024-01-08 08:29 | P.PNPSI_ITS ---
Subjective Subjective Date of Service: 01/08/24 Reason For Visit: inability to care for self Subjective Notes: Conditional Voluntary Interim History: Pt slept most of the night. She continues to present as pleasant on approach. She denies SI/HI. She reports she loves it here. She is taking medications as prescribed. No behavioral concerns. stable VS. Review of Systems Review of Systems Patient has no acute medical complaints at this time Mental Status Exam Mental Status Exam Narrative: Appearance: wearing casual clothing. Fair hygiene, in NAD Behavior: cooperative Psychomotor: no agitation or retardation noted Speech: clear, normal rate, some delayed in response but mostly as she is trying to retrieve information, spontaneous TP: some degree of expressive aphasia TC: feeling well, trying to find a call lee Mood: good Affect: congruent, and bright, non labile SI: denies HI: denies VH/AH: does not appear internally preoccupied Delusions: no overt delusions but clear confabulation Insight/judgment: impaired x 2 Memory/cog: alert, not oriented to place, situation, year (1024). severe impairments. Diagnostics Vital Signs (24Hr): Vital Signs - 24 hr 01/07/24 21:39 01/08/24 07:30 Temperature 98.2 F 98.1 F Pulse Rate 89 91 Respiratory Rate 16 18 Blood Pressure 162/72 H 108/53 L Pulse Oximetry 100 99 Oxygen Delivery Method Room Air Room Air BMI result Body Mass Index 18.3 Labs 12/31/23 06:38 Imaging Radiology Impressions: ITS Impressions Head CT 01/01/24 09:46 IMPRESSION: There are scattered chronic small vessel ischemic changes within the periventricular white matter. Otherwise unremarkable examination. No evidence of acute territorial infarct or hemorrhage. Medications Medications Current Medications Acetaminophen (Acetaminophen 325 Mg Tablet) 650 mg PO Q6H PRN PRN Reason: Headache/Pain Mild Scale (1-3) Al Hydroxide/Mg Hydroxide (Magnesium Hydrox/Alum Hydrox 30 Ml Oral.Susp) 30 ml PO Q6H PRN PRN Reason: Heartburn/Nausea Hydroxyzine HCl (Hydroxyzine Hcl 25 Mg Tablet) 25 mg PO Q6H PRN PRN Reason: Anxiety Last Admin: 01/05/24 11:27 Dose: 25 mg Magnesium Hydroxide (Milk Of Magnesia 30 Ml Oral.Susp) 30 ml PO DAILY PRN PRN Reason: Constipation Olanzapine (Olanzapine 2.5 Mg Tablet) 2.5 mg PO BEDTIME JAMI Last Admin: 01/07/24 21:09 Dose: 2.5 mg Trazodone HCl (Trazodone Hcl 50 Mg Tablet) 50 mg PO BEDTIME MRX1 PRN PRN Reason: Insomnia Last Admin: 01/04/24 20:54 Dose: 50 mg Allergies Allergies Allergy/AdvReac Type Severity Reaction Status Date / Time No Known Allergies Allergy Verified 12/31/23 00:14 Assessment & Plan Assessment & Plan (1) Major neurocognitive disorder: Status: Acute Code(s): F03.90 - Unspecified dementia, unspecified severity, without behavioral disturbance, psychotic disturbance, mood disturbance, and anxiety Plan Pt is a 78-year-old female with a PMH significant for?osteoporosis, depression, and schizophrenia who is admitted to [facility] for increasing anxiety and nervousness. Patient initially presented to [facility] for evaluation after fall at home. Patient was found to be alert and oriented to self only, not to time, situation or fully to place. CT of head was negative for acute intracranial pathology, and had well-preserved great white matter differentiation. Medical consult for admission H&P. Mood disorder Plan as per psychiatry Pt otherwise has no acute medical compalaints and does not appear to be on any chronic medications. Thank you for allowing us to participate in the care of this patient. Signing off at this time. Please re-consult if any acute complaints or issues arise. Plan 1. Continue Zyprexa 2.5 p.o. q.h.s. 01/04/continue tx plan 01/05. continue tx. 01/06 continue tx. will switch to risperidone to target AH. 0.5mg po BID. 01/07 continue tx. Reason for continued inpatient stay Substantial Risk for: inability to function Time Spent With Patient Time: Total time managing care of this patient today ____ minutes.
[2024-01-08] MEDS: risperiDONE 0.5 MG TABLET PO ×2 (09:06→20:14)
[2024-01-08 18:00] VITALS: BP 117/53; PULSE 67; RESP 16; TEMP 36.4; O2SAT 100
[2024-01-08] MEDS: traZODone HCL 50 MG TABLET PO (20:11)
[2024-01-09 07:55] VITALS: BP 129/56; PULSE 89; RESP 18; TEMP 36.8; O2SAT 89
[2024-01-09] MEDS: risperiDONE 0.5 MG TABLET PO ×2 (08:45→21:39)
--- NOTE | 2024-01-09 11:16 | P.PNPSI_ITS ---
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 per staff, A&O to self only. pleasant. taking meds. Mental Status Exam Mental Status Exam Narrative: Appearance: wearing casual clothing. 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 severe impairments. Diagnostics Vital Signs (24Hr): Vital Signs - 24 hr 01/08/24 18:00 01/09/24 07:55 Temperature 97.6 F 98.3 F Pulse Rate 67 89 Respiratory Rate 16 18 Blood Pressure 117/53 L 129/56 L Pulse Oximetry 100 89 L Oxygen Delivery Method Room Air Room Air BMI result Body Mass Index 18.3 Labs 12/31/23 06:38 Imaging Radiology Impressions: ITS Impressions Head CT 01/01/24 09:46 IMPRESSION: There are scattered chronic small vessel ischemic changes within the periventricular white matter. Otherwise unremarkable examination. No evidence of acute territorial infarct or hemorrhage. Medications Medications Current Medications Acetaminophen (Acetaminophen 325 Mg Tablet) 650 mg PO Q6H PRN PRN Reason: Headache/Pain Mild Scale (1-3) Al Hydroxide/Mg Hydroxide (Magnesium Hydrox/Alum Hydrox 30 Ml Oral.Susp) 30 ml PO Q6H PRN PRN Reason: Heartburn/Nausea Hydroxyzine HCl (Hydroxyzine Hcl 25 Mg Tablet) 25 mg PO Q6H PRN PRN Reason: Anxiety Last Admin: 01/05/24 11:27 Dose: 25 mg Magnesium Hydroxide (Milk Of Magnesia 30 Ml Oral.Susp) 30 ml PO DAILY PRN PRN Reason: Constipation Risperidone (Risperidone 0.5 Mg Tablet) 0.5 mg PO BID [facility] Last Admin: 01/09/24 08:45 Dose: 0.5 mg Trazodone HCl (Trazodone Hcl 50 Mg Tablet) 50 mg PO BEDTIME MRX1 PRN PRN Reason: Insomnia Last Admin: 01/08/24 20:11 Dose: 50 mg Allergies Allergies Allergy/AdvReac Type Severity Reaction Status Date / Time No Known Allergies Allergy Verified 12/31/23 00:14 Assessment & Plan Assessment & Plan (1) Major neurocognitive disorder: Status: Acute Code(s): F03.90 - Unspecified dementia, unspecified severity, without behavioral disturbance, psychotic disturbance, mood disturbance, and anxiety Plan Pt is a 78-year-old female with a PMH significant for?osteoporosis, depression, and schizophrenia who is admitted to [facility] for increasing anxiety and nervousness. Patient initially presented to [facility] for evaluation after fall at home. Patient was found to be alert and oriented to self only, not to time, situation or fully to place. CT of head was negative for acute intracranial pathology, and had well-preserved great white matter differentiation. Medical consult for admission H&P. Mood disorder Plan as per psychiatry Pt otherwise has no acute medical compalaints and does not appear to be on any chronic medications. Thank you for allowing us to participate in the care of this patient. Signing off at this time. Please re-consult if any acute complaints or issues arise. Plan 1. Continue Zyprexa 2.5 p.o. q.h.s. 01/04/continue tx plan 01/05. continue tx. 01/06 continue tx. will switch to risperidone to target AH. 0.5mg po BID. 01/07 continue tx. 01/08: stable. continue current mgmt. Reason for continued inpatient stay Substantial Risk for: inability to function and rapid decompensation Time Spent With Patient Time: Total time managing care of this patient today ____ minutes.
[2024-01-09 18:00] VITALS: BP 137/66; PULSE 96; RESP 16; TEMP 36.3; O2SAT 100
[2024-01-09] MEDS: hydrOXYzine HCL 25 MG TABLET PO (21:39)
[2024-01-10 07:55] VITALS: BP 102/52; PULSE 94; RESP 16; TEMP 36.1; O2SAT 100
[2024-01-10] MEDS: risperiDONE 0.5 MG TABLET PO ×2 (08:35→21:32)
--- NOTE | 2024-01-10 10:58 | P.PNPSI_ITS ---
Subjective Subjective Date of Service: 01/10/24 Reason For Visit: inability to care for self Interim History: informs MD she had had some active days but yesterday started to feel slowed down, which was concerning to her. she appeared bright and engaged to interviewer, not slowed down. she was encouraged to be patient. per staff, no change in presentation. confused. sleeping. Mental Status Exam Mental Status Exam Narrative: Appearance: wearing casual clothing. Fair hygiene, in NAD Behavior: cooperative Psychomotor: no agitation or retardation noted Speech: clear, normal rate, some delayed in response but mostly as she is trying to retrieve information, spontaneous TP: some degree of expressive aphasia TC: feeling slowed down Mood: good Affect: congruent, and bright, non labile SI: none expressed HI: none expressed VH/AH: does not appear internally preoccupied Delusions: no overt delusions but clear confabulation Insight/judgment: impaired x 2 Memory/cog: alert, not oriented to place, situation, year (1024). severe impairments. Diagnostics Vital Signs (24Hr): Vital Signs - 24 hr 01/09/24 18:00 Temperature 97.4 F Pulse Rate 96 Respiratory Rate 16 Blood Pressure 137/66 Pulse Oximetry 100 Oxygen Delivery Method Room Air BMI result Body Mass Index 18.3 Labs 12/31/23 06:38 Imaging Radiology Impressions: ITS Impressions Head CT 01/01/24 09:46 IMPRESSION: There are scattered chronic small vessel ischemic changes within the periventricular white matter. Otherwise unremarkable examination. No evidence of acute territorial infarct or hemorrhage. Medications Medications Current Medications Acetaminophen (Acetaminophen 325 Mg Tablet) 650 mg PO Q6H PRN PRN Reason: Headache/Pain Mild Scale (1-3) Al Hydroxide/Mg Hydroxide (Magnesium Hydrox/Alum Hydrox 30 Ml Oral.Susp) 30 ml PO Q6H PRN PRN Reason: Heartburn/Nausea Hydroxyzine HCl (Hydroxyzine Hcl 25 Mg Tablet) 25 mg PO Q6H PRN PRN Reason: Anxiety Last Admin: 01/09/24 21:39 Dose: 25 mg Magnesium Hydroxide (Milk Of Magnesia 30 Ml Oral.Susp) 30 ml PO DAILY PRN PRN Reason: Constipation Risperidone (Risperidone 0.5 Mg Tablet) 0.5 mg PO BID JAMI Last Admin: 01/10/24 08:35 Dose: 0.5 mg Trazodone HCl (Trazodone Hcl 50 Mg Tablet) 50 mg PO BEDTIME MRX1 PRN PRN Reason: Insomnia Last Admin: 01/08/24 20:11 Dose: 50 mg Allergies Allergies Allergy/AdvReac Type Severity Reaction Status Date / Time No Known Allergies Allergy Verified 12/31/23 00:14 Assessment & Plan Assessment & Plan (1) Major neurocognitive disorder: Status: Acute Code(s): F03.90 - Unspecified dementia, unspecified severity, without behavioral disturbance, psychotic disturbance, mood disturbance, and anxiety Plan Pt is a 78-year-old female with a PMH significant for?osteoporosis, depression, and schizophrenia who is admitted to [facility] for increasing anxiety and nervousness. Patient initially presented to [facility] for evaluation after fall at home. Patient was found to be alert and oriented to self only, not to time, situation or fully to place. CT of head was negative for acute intracranial pathology, and had well-preserved great white matter differentiation. Medical consult for admission H&P. Mood disorder Plan as per psychiatry Pt otherwise has no acute medical compalaints and does not appear to be on any chronic medications. Thank you for allowing us to participate in the care of this patient. Signing off at this time. Please re-consult if any acute complaints or issues arise. Plan 1. Continue Zyprexa 2.5 p.o. q.h.s. 01/04/continue tx plan 01/05. continue tx. 01/06 continue tx. will switch to risperidone to target AH. 0.5mg po BID. 01/07 continue tx. 01/08: stable. continue current mgmt. 01/09: feeling slowed down, which may indicate progress in getting mood disorder under control. appears well. continue current mgmt. Reason for continued inpatient stay Substantial Risk for: inability to function Time Spent With Patient Time: Total time managing care of this patient today ____ minutes.
[2024-01-10 18:00] VITALS: BP 106/59; PULSE 96; RESP 18; TEMP 35.8; O2SAT 100
[2024-01-10] MEDS: hydrOXYzine HCL 25 MG TABLET PO (21:32)
[2024-01-11 06:00] VITALS: BP 119/53; PULSE 72; TEMP 36; O2SAT 100
[2024-01-11] MEDS: risperiDONE 0.5 MG TABLET PO ×2 (08:50→21:23)
--- NOTE | 2024-01-11 08:59 | HO.PSYCHPN ---
Subjective Subjective Date of Service: 01/11/24 Reason For Visit: inability to care for self Subjective Notes: Conditional Voluntary Interim History: Pt slept most of the night. She reports it took me a long time to figure out, but there is a satellite that transmit conversation to me. She reports she has been hearing voices of Dr. Kenyon Hernandez with whom she has a relationship with but she states she has never seen him in person. She reports they talk about daily things. She reports hearing his voice keeps her company. Her mood is brighter. Non labile. No SI/HI. She is more than grateful for being here. She is taking medications. Review of Systems Review of Systems Patient has no acute medical complaints at this time Mental Status Exam Mental Status Exam Narrative: Appearance: wearing casual clothing. Fair hygiene, in NAD Behavior: cooperative Psychomotor: no agitation or retardation noted Speech: clear, normal rate, some delayed in response but mostly as she is trying to retrieve information, spontaneous TP: some degree of expressive aphasia TC: feeling slowed down Mood: good Affect: congruent, and bright, non labile SI: none expressed HI: none expressed VH/AH: does not appear internally preoccupied Delusions: no overt delusions but clear confabulation Insight/judgment: impaired x 2 Memory/cog: alert, not oriented to place, situation, year (1024). severe impairments. Diagnostics Vital Signs (24Hr): Vital Signs - 24 hr 01/10/24 18:00 Temperature 96.4 F L Pulse Rate 96 Respiratory Rate 18 Blood Pressure 106/59 L Pulse Oximetry 100 Oxygen Delivery Method Room Air BMI result Body Mass Index 18.3 Labs 12/31/23 06:38 Imaging Radiology Impressions: ITS Impressions Head CT 01/01/24 09:46 IMPRESSION: There are scattered chronic small vessel ischemic changes within the periventricular white matter. Otherwise unremarkable examination. No evidence of acute territorial infarct or hemorrhage. Medications Medications Current Medications Acetaminophen (Acetaminophen 325 Mg Tablet) 650 mg PO Q6H PRN PRN Reason: Headache/Pain Mild Scale (1-3) Al Hydroxide/Mg Hydroxide (Magnesium Hydrox/Alum Hydrox 30 Ml Oral.Susp) 30 ml PO Q6H PRN PRN Reason: Heartburn/Nausea Hydroxyzine HCl (Hydroxyzine Hcl 25 Mg Tablet) 25 mg PO Q6H PRN PRN Reason: Anxiety Last Admin: 01/10/24 21:32 Dose: 25 mg Magnesium Hydroxide (Milk Of Magnesia 30 Ml Oral.Susp) 30 ml PO DAILY PRN PRN Reason: Constipation Risperidone (Risperidone 0.5 Mg Tablet) 0.5 mg PO BID JAMI Last Admin: 01/11/24 08:50 Dose: 0.5 mg Trazodone HCl (Trazodone Hcl 50 Mg Tablet) 50 mg PO BEDTIME MRX1 PRN PRN Reason: Insomnia Last Admin: 01/08/24 20:11 Dose: 50 mg Allergies Allergies Allergy/AdvReac Type Severity Reaction Status Date / Time No Known Allergies Allergy Verified 12/31/23 00:14 Assessment & Plan Assessment & Plan (1) Major neurocognitive disorder: Status: Acute Code(s): F03.90 - Unspecified dementia, unspecified severity, without behavioral disturbance, psychotic disturbance, mood disturbance, and anxiety (2) Schizoaffective disorder: Status: Acute Code(s): F25.9 - Schizoaffective disorder, unspecified Assessment and Plan: with primarily erotomatic delusions (she does reports hearing voices) Plan Pt is a 78-year-old female with a PMH significant for?osteoporosis, depression, and schizophrenia who is admitted to [facility] for increasing anxiety and nervousness. y Plan 01/04/continue tx plan 01/05. continue tx. 01/06 continue tx. will switch to risperidone to target AH. 0.5mg po BID. 01/07 continue tx. 3: stable. continue current mgmt. 3/3: feeling slowed down, which may indicate progress in getting mood disorder under control. appears well. continue current mgmt. 3/4 continue tx. Reason for continued inpatient stay Substantial Risk for: inability to function Time Spent With Patient Time: Total time managing care of this patient today ____ minutes.
[2024-01-11 18:00] VITALS: BP 124/60; PULSE 96; RESP 18; TEMP 35.7; O2SAT 99
[2024-01-11] MEDS: hydrOXYzine HCL 25 MG TABLET PO (21:23)
[2024-01-12 06:00] VITALS: BP 130/62; PULSE 106; RESP 16; TEMP 36.7; O2SAT 99
[2024-01-12] MEDS: risperiDONE 0.5 MG TABLET PO (11:31)
--- NOTE | 2024-01-12 15:08 | P.PNPSI_ITS ---
Subjective Subjective Date of Service: 01/12/24 Reason For Visit: inability to care for self Subjective Notes: Conditional Voluntary Interim History: Pt continues to sleep through the night. She reports feeling very happy here. No SI/HI. She continues to report hearing voice of Dr. poon who she reports has a relationship with. She is visible on the unit. behavior more organized. Review of Systems Review of Systems Patient has no acute medical complaints at this time Mental Status Exam Mental Status Exam Narrative: Appearance: wearing casual clothing. Fair hygiene, in NAD Behavior: cooperative Psychomotor: no agitation or retardation noted Speech: clear, normal rate, some delayed in response but mostly as she is trying to retrieve information, spontaneous TP: some degree of expressive aphasia TC: feeling slowed down Mood: good Affect: congruent, and bright, non labile SI: none expressed HI: none expressed VH/AH: does not appear internally preoccupied Delusions: no overt delusions but clear confabulation Insight/judgment: impaired x 2 Memory/cog: alert, not oriented to situation or place. Diagnostics Vital Signs (24Hr): Vital Signs - 24 hr 01/11/24 18:00 01/12/24 06:00 Temperature 96.3 F L 98.1 F Pulse Rate 96 106 H Respiratory Rate 18 16 Blood Pressure 124/60 130/62 Pulse Oximetry 99 99 Oxygen Delivery Method Room Air Room Air BMI result Body Mass Index 18.3 Labs 12/31/23 06:38 Imaging Radiology Impressions: ITS Impressions Head CT 01/01/24 09:46 IMPRESSION: There are scattered chronic small vessel ischemic changes within the periventricular white matter. Otherwise unremarkable examination. No evidence of acute territorial infarct or hemorrhage. Medications Medications Current Medications Acetaminophen (Acetaminophen 325 Mg Tablet) 650 mg PO Q6H PRN PRN Reason: Headache/Pain Mild Scale (1-3) Al Hydroxide/Mg Hydroxide (Magnesium Hydrox/Alum Hydrox 30 Ml Oral.Susp) 30 ml PO Q6H PRN PRN Reason: Heartburn/Nausea Hydroxyzine HCl (Hydroxyzine Hcl 25 Mg Tablet) 25 mg PO Q6H PRN PRN Reason: Anxiety Last Admin: 01/11/24 21:23 Dose: 25 mg Magnesium Hydroxide (Milk Of Magnesia 30 Ml Oral.Susp) 30 ml PO DAILY PRN PRN Reason: Constipation Risperidone (Risperidone 1 Mg Tablet) 1 mg PO BID JAMI Trazodone HCl (Trazodone Hcl 50 Mg Tablet) 50 mg PO BEDTIME MRX1 PRN PRN Reason: Insomnia Last Admin: 01/08/24 20:11 Dose: 50 mg Allergies Allergies Allergy/AdvReac Type Severity Reaction Status Date / Time No Known Allergies Allergy Verified 12/31/23 00:14 Assessment & Plan Assessment & Plan (1) Major neurocognitive disorder: Status: Acute Code(s): F03.90 - Unspecified dementia, unspecified severity, without behavioral disturbance, psychotic disturbance, mood disturbance, and anxiety (2) Schizoaffective disorder: Status: Acute Code(s): F25.9 - Schizoaffective disorder, unspecified Assessment and Plan: with primarily erotomatic delusions (she does reports hearing voices) Plan Pt is a 78-year-old female with a PMH significant for?osteoporosis, depression, and schizophrenia who is admitted to [facility] for increasing anxiety and nervousness. y Plan 01/04/continue tx plan 01/05. continue tx. 01/06 continue tx. will switch to risperidone to target AH. 0.5mg po BID. 01/07 continue tx. 01/08: stable. continue current mgmt. 3/3: feeling slowed down, which may indicate progress in getting mood disorder under control. appears well. continue current mgmt. 01/10 continue tx. 01/11 continue tx. Reason for continued inpatient stay Substantial Risk for: inability to function Time Spent With Patient Time: Total time managing care of this patient today ____ minutes.
[2024-01-12] MEDS: risperiDONE 1 MG TABLET PO (20:09)
[2024-01-12 20:13] VITALS: BP 132/60; PULSE 63; RESP 18; TEMP 36.6; O2SAT 97
[2024-01-13 07:55] VITALS: BP 116/50; PULSE 96; RESP 18; TEMP 37; O2SAT 99
[2024-01-13] MEDS: risperiDONE 1 MG TABLET PO ×2 (09:00→21:03)
--- NOTE | 2024-01-13 14:16 | MHC.CLN ---
F/U DIET=REGULAR. ENSURE SUPPLEMENT BID (700 KCALS, 40 G PROTEIN). INTAKE USUALLY GOOD, 75-100%. CONTINUE REGULAR DIET WITH SUPPLEMENT. ENCOURAGE PO ABLE. RD TO FOLLOW WEEKLY.
--- NOTE | 2024-01-13 16:49 | P.PNPSI_ITS ---
Subjective Subjective Date of Service: 01/13/24 Reason For Visit: inability to care for self Subjective Notes: Conditional Voluntary Interim History: Pt continues to sleep through the night. She reports feeling very happy here. No SI/HI. She continues to report hearing voice of Dr. poon who she reports has a relationship with. She is visible on the unit. behavior more organized. Review of Systems Review of Systems Patient has no acute medical complaints at this time Mental Status Exam Mental Status Exam Narrative: Appearance: wearing casual clothing. Fair hygiene, in NAD Behavior: cooperative Psychomotor: no agitation or retardation noted Speech: clear, normal rate, some delayed in response but mostly as she is trying to retrieve information, spontaneous TP: some degree of expressive aphasia TC: feeling slowed down Mood: good Affect: congruent, and bright, non labile SI: none expressed HI: none expressed VH/AH: does not appear internally preoccupied Delusions: no overt delusions but clear confabulation Insight/judgment: impaired x 2 Memory/cog: alert, not oriented to situation or place. Diagnostics Vital Signs (24Hr): Vital Signs - 24 hr 01/12/24 20:13 01/13/24 07:55 Temperature 97.9 F 98.6 F Pulse Rate 63 96 Respiratory Rate 18 18 Blood Pressure 132/60 116/50 L Pulse Oximetry 97 99 Oxygen Delivery Method Room Air Room Air BMI result Body Mass Index 18.3 Labs 12/31/23 06:38 Imaging Radiology Impressions: ITS Impressions Head CT 01/01/24 09:46 IMPRESSION: There are scattered chronic small vessel ischemic changes within the periventricular white matter. Otherwise unremarkable examination. No evidence of acute territorial infarct or hemorrhage. Medications Medications Current Medications Acetaminophen (Acetaminophen 325 Mg Tablet) 650 mg PO Q6H PRN PRN Reason: Headache/Pain Mild Scale (1-3) Al Hydroxide/Mg Hydroxide (Magnesium Hydrox/Alum Hydrox 30 Ml Oral.Susp) 30 ml PO Q6H PRN PRN Reason: Heartburn/Nausea Hydroxyzine HCl (Hydroxyzine Hcl 25 Mg Tablet) 25 mg PO Q6H PRN PRN Reason: Anxiety Last Admin: 01/11/24 21:23 Dose: 25 mg Magnesium Hydroxide (Milk Of Magnesia 30 Ml Oral.Susp) 30 ml PO DAILY PRN PRN Reason: Constipation Risperidone (Risperidone 1 Mg Tablet) 1 mg PO BID JAMI Last Admin: 01/13/24 09:00 Dose: 1 mg Trazodone HCl (Trazodone Hcl 50 Mg Tablet) 50 mg PO BEDTIME MRX1 PRN PRN Reason: Insomnia Last Admin: 01/08/24 20:11 Dose: 50 mg Allergies Allergies Allergy/AdvReac Type Severity Reaction Status Date / Time No Known Allergies Allergy Verified 12/31/23 00:14 Assessment & Plan Assessment & Plan (1) Schizoaffective disorder: Status: Acute Code(s): F25.9 - Schizoaffective disorder, unspecified Assessment and Plan: with primarily erotomatic delusions (she does reports hearing voices) (2) Major neurocognitive disorder: Status: Acute Code(s): F03.90 - Unspecified dementia, unspecified severity, without behavioral disturbance, psychotic disturbance, mood disturbance, and anxiety Plan Pt is a 78-year-old female with a PMH significant for?osteoporosis, depression, and schizophrenia who is admitted to [facility] for increasing anxiety and nervousness. y Plan 01/04/continue tx plan 01/05. continue tx. 01/06 continue tx. will switch to risperidone to target AH. 0.5mg po BID. 01/07 continue tx. 01/08: stable. continue current mgmt. 01/09: feeling slowed down, which may indicate progress in getting mood disorder under control. appears well. continue current mgmt. 01/10 continue tx. 01/11 continue tx. 01/12 continue tx. Reason for continued inpatient stay Substantial Risk for: inability to function Time Spent With Patient Time: Total time managing care of this patient today ____ minutes.
[2024-01-13 20:00] VITALS: BP 129/58; PULSE 68; RESP 18; TEMP 36.6; O2SAT 99
[2024-01-14 06:00] VITALS: BP 137/7; PULSE 88; RESP 18; TEMP 36.6; O2SAT 100
[2024-01-14 07:00] VITALS: BMI 20.5
[2024-01-14] MEDS: risperiDONE 1 MG TABLET PO ×2 (08:19→21:11)
--- NOTE | 2024-01-14 17:17 | HO.PSYCHPN ---
Subjective Subjective Date of Service: 01/14/24 Reason For Visit: inability to care for self Interim History: Pt continues to sleep through the night. She reports feeling very happy here. No SI/HI. She continues to report hearing voice of Dr. poon who she reports has a relationship with. She is visible on the unit. behavior more organized. Review of Systems Review of Systems Patient has no acute medical complaints at this time Mental Status Exam Mental Status Exam Narrative: Appearance: wearing casual clothing. Fair hygiene, in NAD Behavior: cooperative Psychomotor: no agitation or retardation noted Speech: clear, normal rate, some delayed in response but mostly as she is trying to retrieve information, spontaneous TP: some degree of expressive aphasia TC: feeling slowed down Mood: good Affect: congruent, and bright, non labile SI: none expressed HI: none expressed VH/AH: does not appear internally preoccupied Delusions: no overt delusions but clear confabulation Insight/judgment: impaired x 2 Memory/cog: alert, not oriented to situation or place. Diagnostics Vital Signs (24Hr): Vital Signs - 24 hr 01/13/24 20:00 01/14/24 06:00 Temperature 97.9 F 97.9 F Pulse Rate 68 88 Respiratory Rate 18 18 Blood Pressure 129/58 L 137/7 L Pulse Oximetry 99 100 Oxygen Delivery Method Room Air Room Air BMI result Body Mass Index 20.5 Labs 12/31/23 06:38 Imaging Radiology Impressions: ITS Impressions Head CT 01/01/24 09:46 IMPRESSION: There are scattered chronic small vessel ischemic changes within the periventricular white matter. Otherwise unremarkable examination. No evidence of acute territorial infarct or hemorrhage. Medications Medications Current Medications Acetaminophen (Acetaminophen 325 Mg Tablet) 650 mg PO Q6H PRN PRN Reason: Headache/Pain Mild Scale (1-3) Al Hydroxide/Mg Hydroxide (Magnesium Hydrox/Alum Hydrox 30 Ml Oral.Susp) 30 ml PO Q6H PRN PRN Reason: Heartburn/Nausea Hydroxyzine HCl (Hydroxyzine Hcl 25 Mg Tablet) 25 mg PO Q6H PRN PRN Reason: Anxiety Last Admin: 01/11/24 21:23 Dose: 25 mg Magnesium Hydroxide (Milk Of Magnesia 30 Ml Oral.Susp) 30 ml PO DAILY PRN PRN Reason: Constipation Risperidone (Risperidone 1 Mg Tablet) 1 mg PO BID JAMI Last Admin: 01/14/24 08:19 Dose: 1 mg Trazodone HCl (Trazodone Hcl 50 Mg Tablet) 50 mg PO BEDTIME MRX1 PRN PRN Reason: Insomnia Last Admin: 01/08/24 20:11 Dose: 50 mg Allergies Allergies Allergy/AdvReac Type Severity Reaction Status Date / Time No Known Allergies Allergy Verified 12/31/23 00:14 Assessment & Plan Assessment & Plan (1) Major neurocognitive disorder: Status: Acute Code(s): F03.90 - Unspecified dementia, unspecified severity, without behavioral disturbance, psychotic disturbance, mood disturbance, and anxiety (2) Schizoaffective disorder: Status: Acute Code(s): F25.9 - Schizoaffective disorder, unspecified Assessment and Plan: with primarily erotomatic delusions (she does reports hearing voices) Plan Pt is a 78-year-old female with a PMH significant for?osteoporosis, depression, and schizophrenia who is admitted to [facility] for increasing anxiety and nervousness. y Plan 01/04/continue tx plan 01/05. continue tx. 01/06 continue tx. will switch to risperidone to target AH. 0.5mg po BID. 01/07 continue tx. 01/08: stable. continue current mgmt. 01/09: feeling slowed down, which may indicate progress in getting mood disorder under control. appears well. continue current mgmt. 01/10 continue tx. 01/11 continue tx. 01/12 continue tx 01/13 may increase risperidone to 0.5mg po daily and 1mg po qhs- monitor orth valentin Reason for continued inpatient stay Substantial Risk for: inability to function Time Spent With Patient Time: Total time managing care of this patient today ____ minutes.
[2024-01-14 18:00] VITALS: BP 110/58; PULSE 97; RESP 18; TEMP 36.6; O2SAT 98
[2024-01-15 07:55] VITALS: BP 121/53; PULSE 94; RESP 17; TEMP 36.8; O2SAT 99
[2024-01-15] MEDS: Acetaminophen 325 MG TABLET 650 MG PO (09:14)
--- NOTE | 2024-01-15 18:06 | HO.PSYCHPN ---
Subjective Subjective Date of Service: 01/15/24 Reason For Visit: inability to care for self Interim History: Met with patient; discussed with team; reviewed chart Patient pleasant on approach. Said she had a toothache but that Tylenol has cleared up. Veterinary Laboratory Technician and nurse looked where she indicated to take was, left upper molar and no signs of abscess. Patient did not take Risperdal this morning. On inquiry she said she heard on the radio that there was a Ban on all Risperdal. However life insurance underwriter discussed this with her and reassured her that there is no Ban and patient thus said she would resume taking the medication. Mental Status Exam Mental Status Exam Narrative: Appearance: wearing casual clothing. Fair hygiene, in NAD Behavior: cooperative Psychomotor: no agitation or retardation noted Speech: clear, normal rate, some delayed in response but mostly as she is trying to retrieve information, spontaneous TP: some degree of expressive aphasia TC: feeling slowed down Mood: good Affect: congruent, and bright, non labile SI: none expressed HI: none expressed VH/AH: does not appear internally preoccupied Delusions: no overt delusions but clear confabulation Insight/judgment: impaired x 2 Memory/cog: alert, not oriented to situation or place. Diagnostics Vital Signs (24Hr): Vital Signs - 24 hr 01/15/24 07:55 Temperature 98.2 F Pulse Rate 94 Respiratory Rate 17 Blood Pressure 121/53 L Pulse Oximetry 99 Oxygen Delivery Method Room Air BMI result Body Mass Index 20.5 Labs 12/31/23 06:38 Imaging Radiology Impressions: ITS Impressions Head CT 01/01/24 09:46 IMPRESSION: There are scattered chronic small vessel ischemic changes within the periventricular white matter. Otherwise unremarkable examination. No evidence of acute territorial infarct or hemorrhage. Medications Medications Current Medications Acetaminophen (Acetaminophen 325 Mg Tablet) 650 mg PO Q6H PRN PRN Reason: Headache/Pain Mild Scale (1-3) Last Admin: 01/15/24 09:14 Dose: 650 mg Al Hydroxide/Mg Hydroxide (Magnesium Hydrox/Alum Hydrox 30 Ml Oral.Susp) 30 ml PO Q6H PRN PRN Reason: Heartburn/Nausea Hydroxyzine HCl (Hydroxyzine Hcl 25 Mg Tablet) 25 mg PO Q6H PRN PRN Reason: Anxiety Last Admin: 01/11/24 21:23 Dose: 25 mg Magnesium Hydroxide (Milk Of Magnesia 30 Ml Oral.Susp) 30 ml PO DAILY PRN PRN Reason: Constipation Risperidone (Risperidone 1 Mg Tablet) 1 mg PO BID JAMI Last Admin: 01/15/24 10:09 Dose: Not Given Trazodone HCl (Trazodone Hcl 50 Mg Tablet) 50 mg PO BEDTIME MRX1 PRN PRN Reason: Insomnia Last Admin: 01/08/24 20:11 Dose: 50 mg Allergies Allergies Allergy/AdvReac Type Severity Reaction Status Date / Time No Known Allergies Allergy Verified 12/31/23 00:14 Assessment & Plan Assessment & Plan (1) Major neurocognitive disorder: Status: Acute Code(s): F03.90 - Unspecified dementia, unspecified severity, without behavioral disturbance, psychotic disturbance, mood disturbance, and anxiety (2) Schizoaffective disorder: Status: Acute Code(s): F25.9 - Schizoaffective disorder, unspecified Assessment and Plan: with primarily erotomatic delusions (she does reports hearing voices) Plan Pt is a 78-year-old female with a PMH significant for?osteoporosis, depression, and schizophrenia who is admitted to [facility] for increasing anxiety and nervousness. y Plan 01/04/continue tx plan 01/05. continue tx. 01/06 continue tx. will switch to risperidone to target AH. 0.5mg po BID. 01/07 continue tx. 01/08: stable. continue current mgmt. 01/09: feeling slowed down, which may indicate progress in getting mood disorder under control. appears well. continue current mgmt. 01/10 continue tx. 01/11 continue tx. 01/12 continue tx 01/13 may increase risperidone to 0.5mg po daily and 1mg po qhs- monitor orth hotrosanna 01/15 Patient pleasant on approach. Said she had a toothache but that Tylenol has cleared up. Veterinary Laboratory Technician and nurse looked where she indicated to take was, left upper molar and no signs of abscess. Patient did not take Risperdal this morning. On inquiry she said she heard on the radio that there was a Ban on all Risperdal. However life insurance underwriter discussed this with her and reassured her that there is no Ban and patient thus said she would resume taking the medication. Patient educated on: diagnosis, medication risk/benefits and medical condition Informed Consent: understands, does not understand and further education needed Reason for continued inpatient stay Substantial Risk for: inability to function Time Spent With Patient Time: Total time managing care of this patient today ____ minutes.
[2024-01-15 20:25] VITALS: BP 109/55; PULSE 91; RESP 18; TEMP 36.3; O2SAT 99
[2024-01-16 08:34] VITALS: BP 137/61; PULSE 108; RESP 18; TEMP 36.8; O2SAT 100
--- NOTE | 2024-01-16 17:56 | HO.PSYCHPN ---
Subjective Subjective Date of Service: 01/16/24 Reason For Visit: inability to care for self Interim History: Met with patient; discussed with team Patient ended up refusing Risperdal. Concrete Block Layer inquired since she said she would take it the day before. Patient pleasant and polite and said that it makes her sick and it is going to be going off the market soon. Mental Status Exam Mental Status Exam Narrative: Appearance: wearing casual clothing. Fair hygiene, in NAD Behavior: cooperative Psychomotor: no agitation or retardation noted Speech: clear, normal rate, some delayed in response but mostly as she is trying to retrieve information, spontaneous TP: some degree of expressive aphasia TC: feeling slowed down Mood: good Affect: congruent, and bright, non labile SI: none expressed HI: none expressed VH/AH: does not appear internally preoccupied Delusions: no overt delusions but clear confabulation Insight/judgment: impaired x 2 Memory/cog: alert, not oriented to situation or place. Diagnostics Vital Signs (24Hr): Vital Signs - 24 hr 01/15/24 20:25 01/16/24 08:34 Temperature 97.3 F 98.2 F Pulse Rate 91 108 H Respiratory Rate 18 18 Blood Pressure 109/55 L 137/61 Pulse Oximetry 99 100 Oxygen Delivery Method Room Air Room Air BMI result Body Mass Index 20.5 Labs 12/31/23 06:38 Imaging Radiology Impressions: ITS Impressions Head CT 01/01/24 09:46 IMPRESSION: There are scattered chronic small vessel ischemic changes within the periventricular white matter. Otherwise unremarkable examination. No evidence of acute territorial infarct or hemorrhage. Medications Medications Current Medications Acetaminophen (Acetaminophen 325 Mg Tablet) 650 mg PO Q6H PRN PRN Reason: Headache/Pain Mild Scale (1-3) Last Admin: 01/15/24 09:14 Dose: 650 mg Al Hydroxide/Mg Hydroxide (Magnesium Hydrox/Alum Hydrox 30 Ml Oral.Susp) 30 ml PO Q6H PRN PRN Reason: Heartburn/Nausea Hydroxyzine HCl (Hydroxyzine Hcl 25 Mg Tablet) 25 mg PO Q6H PRN PRN Reason: Anxiety Last Admin: 01/11/24 21:23 Dose: 25 mg Magnesium Hydroxide (Milk Of Magnesia 30 Ml Oral.Susp) 30 ml PO DAILY PRN PRN Reason: Constipation Risperidone (Risperidone 1 Mg Tablet) 1 mg PO BID JAMI Last Admin: 01/16/24 09:34 Dose: Not Given Trazodone HCl (Trazodone Hcl 50 Mg Tablet) 50 mg PO BEDTIME MRX1 PRN PRN Reason: Insomnia Last Admin: 01/08/24 20:11 Dose: 50 mg Allergies Allergies Allergy/AdvReac Type Severity Reaction Status Date / Time No Known Allergies Allergy Verified 12/31/23 00:14 Assessment & Plan Assessment & Plan (1) Major neurocognitive disorder: Status: Acute Code(s): F03.90 - Unspecified dementia, unspecified severity, without behavioral disturbance, psychotic disturbance, mood disturbance, and anxiety (2) Schizoaffective disorder: Status: Acute Code(s): F25.9 - Schizoaffective disorder, unspecified Assessment and Plan: with primarily erotomatic delusions (she does reports hearing voices) Plan Pt is a 78-year-old female with a PMH significant for?osteoporosis, depression, and schizophrenia who is admitted to [facility] for increasing anxiety and nervousness. y Hospital course 01/04/continue tx plan 01/05. continue tx. 01/06 continue tx. will switch to risperidone to target AH. 0.5mg po BID. 01/07 continue tx. 01/08: stable. continue current mgmt. 01/09: feeling slowed down, which may indicate progress in getting mood disorder under control. appears well. continue current mgmt. 01/10 continue tx. 01/11 continue tx. 01/12 continue tx 01/13 may increase risperidone to 0.5mg po daily and 1mg po qhs- monitor orth hotn 01/14 Patient pleasant on approach. Said she had a toothache but that Tylenol has cleared up. Concrete Block Layer and nurse looked where she indicated to take was, left upper molar and no signs of abscess. Patient did not take Risperdal this morning. On inquiry she said she heard on the radio that there was a Ban on all Risperdal. However lyric writer discussed this with her and reassured her that there is no Ban and patient thus said she would resume taking the medication. 01/15 Patient ended up refusing Risperdal. Concrete Block Layer inquired since she said she would take it the day before. Patient pleasant and polite and said that it makes her sick and it is going to be going off the market soon. Concrete Block Layer attempted to engage in medication discussion but patient was pretty clear what she thought about Risperdal Patient educated on: diagnosis and medication risk/benefits Informed Consent: does not understand Reason for continued inpatient stay Substantial Risk for: inability to function Time Spent With Patient Time: Total time managing care of this patient today ____ minutes.
--- NOTE | 2024-01-16 18:21 | PC.NURSE ---
Anu Bautista and Dr. Slaughter notified.
[2024-01-16 20:37] VITALS: BP 118/56; PULSE 79; RESP 17; TEMP 35.9; O2SAT 99
[2024-01-17 08:20] VITALS: BP 128/59; PULSE 90; RESP 18; TEMP 36.4; O2SAT 98
--- NOTE | 2024-01-17 15:40 | HO.PSYCHPN ---
Subjective Subjective Date of Service: 01/17/24 Reason For Visit: inability to care for self Interim History: met with patient; discussed with team; reviewed note Patient again refused Risperdal. [employer] Dean had refused chart, see below and asked patient what she thought about Zyprexa. She knew she was taking it before asked what it was for; telegraphic typewriter repairer explained was for thinking clearly which she liked and said she would resume taking it reviewed chart; pt was on Zyprexa 2.5mg qhs but on was switched to Risperdal, though note does not say why (note says to target AH but does not say why switched to Risperdal rather than increase Zyprexa). Pt has been refusing Risperdal; she tells telegraphic typewriter repairer she will take Zyprexa so will restart but at Zyprexa 5mg qhs (since 2.5mg not effective) Mental Status Exam Mental Status Exam Narrative: Appearance: wearing casual clothing. Fair hygiene, in NAD Behavior: cooperative Psychomotor: no agitation or retardation noted Speech: clear, normal rate, some delayed in response but mostly as she is trying to retrieve information, spontaneous TP: some degree of expressive aphasia TC: feeling slowed down Mood: good Affect: congruent, and bright, non labile SI: none expressed HI: none expressed VH/AH: does not appear internally preoccupied Delusions: no overt delusions but clear confabulation Insight/judgment: impaired x 2 Memory/cog: alert, not oriented to situation or place. Diagnostics Vital Signs (24Hr): Vital Signs - 24 hr 01/16/24 20:37 01/17/24 08:20 Temperature 96.7 F L 97.6 F Pulse Rate 79 90 Respiratory Rate 17 18 Blood Pressure 118/56 L 128/59 L Pulse Oximetry 99 98 Oxygen Delivery Method Room Air Room Air BMI result Body Mass Index 20.5 Labs 12/31/23 06:38 Imaging Radiology Impressions: ITS Impressions Head CT 01/01/24 09:46 IMPRESSION: There are scattered chronic small vessel ischemic changes within the periventricular white matter. Otherwise unremarkable examination. No evidence of acute territorial infarct or hemorrhage. Medications Medications Current Medications Acetaminophen (Acetaminophen 325 Mg Tablet) 650 mg PO Q6H PRN PRN Reason: Headache/Pain Mild Scale (1-3) Last Admin: 01/15/24 09:14 Dose: 650 mg Al Hydroxide/Mg Hydroxide (Magnesium Hydrox/Alum Hydrox 30 Ml Oral.Susp) 30 ml PO Q6H PRN PRN Reason: Heartburn/Nausea Hydroxyzine HCl (Hydroxyzine Hcl 25 Mg Tablet) 25 mg PO Q6H PRN PRN Reason: Anxiety Last Admin: 01/11/24 21:23 Dose: 25 mg Magnesium Hydroxide (Milk Of Magnesia 30 Ml Oral.Susp) 30 ml PO DAILY PRN PRN Reason: Constipation Risperidone (Risperidone 1 Mg Tablet) 1 mg PO BID JAMI Last Admin: 01/17/24 07:33 Dose: Not Given Trazodone HCl (Trazodone Hcl 50 Mg Tablet) 50 mg PO BEDTIME MRX1 PRN PRN Reason: Insomnia Last Admin: 01/08/24 20:11 Dose: 50 mg Allergies Allergies Allergy/AdvReac Type Severity Reaction Status Date / Time No Known Allergies Allergy Verified 12/31/23 00:14 Assessment & Plan Assessment & Plan (1) Major neurocognitive disorder: Status: Acute Code(s): F03.90 - Unspecified dementia, unspecified severity, without behavioral disturbance, psychotic disturbance, mood disturbance, and anxiety (2) Schizoaffective disorder: Status: Acute Code(s): F25.9 - Schizoaffective disorder, unspecified Assessment and Plan: with primarily erotomatic delusions (she does reports hearing voices) Plan Pt is a 78-year-old female with a PMH significant for?osteoporosis, depression, and schizophrenia who is admitted to [facility] for increasing anxiety and nervousness. y Plan 01/04/continue tx plan 01/05. continue tx. 01/06 continue tx. will switch to risperidone to target AH. 0.5mg po BID. 01/07 continue tx. 01/08: stable. continue current mgmt. 01/09: feeling slowed down, which may indicate progress in getting mood disorder under control. appears well. continue current mgmt. 01/10 continue tx. 01/11 continue tx. 01/12 continue tx 01/13 may increase risperidone to 0.5mg po daily and 1mg po qhs- monitor orth hotn 01/14 Patient pleasant on approach. Said she had a toothache but that Tylenol has cleared up. [employer] Dean and nurse looked where she indicated to take was, left upper molar and no signs of abscess. Patient did not take Risperdal this morning. On inquiry she said she heard on the radio that there was a Ban on all Risperdal. However telegraphic typewriter repairer discussed this with her and reassured her that there is no Ban and patient thus said she would resume taking the medication. 01/15 Patient ended up refusing Risperdal. [employer] Dean inquired since she said she would take it the day before. Patient pleasant and polite and said that it makes her sick and it is going to be going off the market soon. [employer] Dean attempted to engage in medication discussion but patient was pretty clear what she thought about Risperdal 01/16 Patient again refused Risperdal. [employer] Dean had refused chart, see below and asked patient what she thought about Zyprexa. She knew she was taking it before asked what it was for; telegraphic typewriter repairer explained was for thinking clearly which she liked and said she would resume taking it. [employer] Dean reviewed chart; pt was on Zyprexa 2.5mg qhs but on was switched to Risperdal, though note does not say why (note says to target AH but does not say why switched to Risperdal rather than increase Zyprexa). Pt has been refusing Risperdal; she tells telegraphic typewriter repairer she will take Zyprexa so will restart but at Zyprexa 5mg qhs (since 2.5mg not effective) PLAN: DC Risperdal; patient refuses Restart Zyprexa and will increase dose to 5 mg (patient was taking 2.5 mg on admission which was ineffective) patient says she will take this medication Patient educated on: diagnosis and medication risk/benefits Informed Consent: understands, does not understand and further education needed Reason for continued inpatient stay Substantial Risk for: inability to function Time Spent With Patient Time: Total time managing care of this patient today ____ minutes.
--- NOTE | 2024-01-17 15:41 | PC.NURSE ---
Dr. Slaughter notified that Kanika declined Risperdal.
[2024-01-17 18:13] VITALS: BP 134/60; PULSE 98; RESP 16; TEMP 36.4; O2SAT 97
[2024-01-17] MEDS: OLANZapine 5 MG TABLET PO (22:15)
--- NOTE | 2024-01-18 09:07 | HO.PSYCHPN ---
Subjective Subjective Date of Service: 01/18/24 Reason For Visit: inability to care for self Subjective Notes: Conditional Voluntary Interim History: Pt refused risperidone she states she knows pharmaceutical company is closing and they are not making this medication anymore. She also states it made me feel very sick but unable to explain in which way. She denies SI/HI. She reports hearing voices of [place]yon, thinks he is upset with her because he asked for glass of water and she couldn't bring it. She appears more psychotic, since she decline riperidone. She is taking olanzapine, may need higher doses which has been concern in terms of ortho hypotension. Diagnostics Vital Signs (24Hr): Vital Signs - 24 hr 01/17/24 18:13 Temperature 97.5 F Pulse Rate 98 Respiratory Rate 16 Blood Pressure 134/60 Pulse Oximetry 97 Oxygen Delivery Method Room Air BMI result Body Mass Index 20.5 Labs 12/31/23 06:38 Imaging Radiology Impressions: ITS Impressions Head CT 01/01/24 09:46 IMPRESSION: There are scattered chronic small vessel ischemic changes within the periventricular white matter. Otherwise unremarkable examination. No evidence of acute territorial infarct or hemorrhage. Medications Medications Current Medications Acetaminophen (Acetaminophen 325 Mg Tablet) 650 mg PO Q6H PRN PRN Reason: Headache/Pain Mild Scale (1-3) Last Admin: 01/15/24 09:14 Dose: 650 mg Al Hydroxide/Mg Hydroxide (Magnesium Hydrox/Alum Hydrox 30 Ml Oral.Susp) 30 ml PO Q6H PRN PRN Reason: Heartburn/Nausea Hydroxyzine HCl (Hydroxyzine Hcl 25 Mg Tablet) 25 mg PO Q6H PRN PRN Reason: Anxiety Last Admin: 01/11/24 21:23 Dose: 25 mg Magnesium Hydroxide (Milk Of Magnesia 30 Ml Oral.Susp) 30 ml PO DAILY PRN PRN Reason: Constipation Olanzapine (Olanzapine 5 Mg Tablet) 5 mg PO BEDTIME JAMI Last Admin: 01/17/24 22:16 Dose: Not Given Trazodone HCl (Trazodone Hcl 50 Mg Tablet) 50 mg PO BEDTIME MRX1 PRN PRN Reason: Insomnia Last Admin: 01/08/24 20:11 Dose: 50 mg Allergies Allergies Allergy/AdvReac Type Severity Reaction Status Date / Time No Known Allergies Allergy Verified 12/31/23 00:14 Assessment & Plan Assessment & Plan (1) Major neurocognitive disorder: Status: Acute Code(s): F03.90 - Unspecified dementia, unspecified severity, without behavioral disturbance, psychotic disturbance, mood disturbance, and anxiety (2) Schizoaffective disorder: Status: Acute Code(s): F25.9 - Schizoaffective disorder, unspecified Assessment and Plan: with primarily erotomatic delusions (she does reports hearing voices) Plan Pt is a 78-year-old female with a PMH significant for?osteoporosis, depression, and schizophrenia who is admitted to [facility] for increasing anxiety and nervousness. y Plan 01/04/continue tx plan 01/05. continue tx. 01/06 continue tx. will switch to risperidone to target AH. 0.5mg po BID. 01/07 continue tx. 01/08: stable. continue current mgmt. 01/09: feeling slowed down, which may indicate progress in getting mood disorder under control. appears well. continue current mgmt. 01/10 continue tx. 01/11 continue tx. 01/12 continue tx 01/13 may increase risperidone to 0.5mg po daily and 1mg po qhs- monitor orth hotn 01/15 Patient pleasant on approach. Said she had a toothache but that Tylenol has cleared up. Neurosurgery Research Director and nurse looked where she indicated to take was, left upper molar and no signs of abscess. Patient did not take Risperdal this morning. On inquiry she said she heard on the radio that there was a Ban on all Risperdal. However scientific writer discussed this with her and reassured her that there is no Ban and patient thus said she would resume taking the medication. 01/17 continue current medications. may discuss alternative Reason for continued inpatient stay Substantial Risk for: inability to function Time Spent With Patient Time: Total time managing care of this patient today ____ minutes.
[2024-01-18 19:30] VITALS: BP 145/60; PULSE 89; RESP 18; TEMP 36.9; O2SAT 97
[2024-01-18] MEDS: OLANZapine 5 MG TABLET PO (20:41)
[2024-01-19 07:50] VITALS: BP 130/63; PULSE 93; RESP 20; TEMP 36.4; O2SAT 95
--- NOTE | 2024-01-19 16:44 | HO.PSYCHPN ---
Subjective Subjective Date of Service: 01/19/24 Reason For Visit: inability to care for self Subjective Notes: Conditional Voluntary Interim History: Pt reports hearing voices of Dr. Prescott who is person who she has never seen. She has also been hearing voices of her nephew. More distracted and preoccupied with voices. She denies SI/HI. She is sleeping well. No aggression and attending groups Review of Systems Review of Systems Patient has no acute medical complaints at this time Mental Status Exam Mental Status Exam Narrative: Appearance: wearing casual clothing. Fair hygiene, in NAD Behavior: cooperative Psychomotor: no agitation or retardation noted Speech: clear, normal rate, some delayed in response but mostly as she is trying to retrieve information, spontaneous TP: some degree of expressive aphasia TC: feeling slowed down Mood: good Affect: congruent, and bright, non labile SI: none expressed HI: none expressed VH/AH: does not appear internally preoccupied Delusions: no overt delusions but clear confabulation Insight/judgment: impaired x 2 Memory/cog: alert, not oriented to situation or place. Diagnostics Vital Signs (24Hr): Vital Signs - 24 hr 01/18/24 19:30 01/19/24 07:50 Temperature 98.4 F 97.6 F Pulse Rate 89 93 Respiratory Rate 18 20 Blood Pressure 145/60 H 130/63 Pulse Oximetry 97 95 Oxygen Delivery Method Room Air Room Air BMI result Body Mass Index 20.5 Labs 12/31/23 06:38 Imaging Radiology Impressions: ITS Impressions Head CT 01/01/24 09:46 IMPRESSION: There are scattered chronic small vessel ischemic changes within the periventricular white matter. Otherwise unremarkable examination. No evidence of acute territorial infarct or hemorrhage. Medications Medications Current Medications Acetaminophen (Acetaminophen 325 Mg Tablet) 650 mg PO Q6H PRN PRN Reason: Headache/Pain Mild Scale (1-3) Last Admin: 01/15/24 09:14 Dose: 650 mg Al Hydroxide/Mg Hydroxide (Magnesium Hydrox/Alum Hydrox 30 Ml Oral.Susp) 30 ml PO Q6H PRN PRN Reason: Heartburn/Nausea Hydroxyzine HCl (Hydroxyzine Hcl 25 Mg Tablet) 25 mg PO Q6H PRN PRN Reason: Anxiety Last Admin: 01/11/24 21:23 Dose: 25 mg Magnesium Hydroxide (Milk Of Magnesia 30 Ml Oral.Susp) 30 ml PO DAILY PRN PRN Reason: Constipation Olanzapine (Olanzapine 5 Mg Tablet) 5 mg PO BEDTIME JAMI Last Admin: 01/18/24 20:41 Dose: 5 mg Trazodone HCl (Trazodone Hcl 50 Mg Tablet) 50 mg PO BEDTIME MRX1 PRN PRN Reason: Insomnia Last Admin: 01/08/24 20:11 Dose: 50 mg Allergies Allergies Allergy/AdvReac Type Severity Reaction Status Date / Time No Known Allergies Allergy Verified 12/31/23 00:14 Assessment & Plan Assessment & Plan (1) Major neurocognitive disorder: Status: Acute Code(s): F03.90 - Unspecified dementia, unspecified severity, without behavioral disturbance, psychotic disturbance, mood disturbance, and anxiety (2) Schizoaffective disorder: Status: Acute Code(s): F25.9 - Schizoaffective disorder, unspecified Assessment and Plan: with primarily erotomatic delusions (she does reports hearing voices) Plan Pt is a 78-year-old female with a PMH significant for?osteoporosis, depression, and schizophrenia who is admitted to [facility] for increasing anxiety and nervousness. y Plan 01/04/continue tx plan 01/05. continue tx. 01/06 continue tx. will switch to risperidone to target AH. 0.5mg po BID. 01/07 continue tx. 01/08: stable. continue current mgmt. 01/09: feeling slowed down, which may indicate progress in getting mood disorder under control. appears well. continue current mgmt. 01/10 continue tx. 01/11 continue tx. 01/12 continue tx 01/13 may increase risperidone to 0.5mg po daily and 1mg po qhs- monitor orth hotn 01/15 Patient pleasant on approach. Said she had a toothache but that Tylenol has cleared up. Aerospace Project Engineer and nurse looked where she indicated to take was, left upper molar and no signs of abscess. Patient did not take Risperdal this morning. On inquiry she said she heard on the radio that there was a Ban on all Risperdal. However mortgage loan underwriter discussed this with her and reassured her that there is no Ban and patient thus said she would resume taking the medication. 01/17 continue current medications. may discuss alternative 01/18 continue tx. pt taking olanzapine but seemed better with risperidone Reason for continued inpatient stay Substantial Risk for: inability to function Time Spent With Patient Time: Total time managing care of this patient today ____ minutes.
[2024-01-19 19:30] VITALS: BP 140/65; PULSE 106; RESP 18; TEMP 36.9; O2SAT 98
[2024-01-19] MEDS: OLANZapine 5 MG TABLET PO (20:59)
[2024-01-19] MEDS: HaloperidoL 1 MG TABLET 2 MG PO (20:59)
[2024-01-20 07:45] VITALS: BP 128/61; PULSE 93; RESP 18; TEMP 36.6; O2SAT 99
[2024-01-20] MEDS: HaloperidoL 1 MG TABLET 2 MG PO (08:04)
--- NOTE | 2024-01-20 13:27 | MHC.CLN ---
Addendum entered by Eloina Bustillo RD 01/20/24 13:27: WEIGHT ON 01/13=54.1 KG, BMI=20.5. FAVORABLE JULIA GAIN SINCE ADMISSION. Original Note: F/U DIET=REGULAR. ENSURE SUPPLEMENT BID (700 KCALS, 40 G PROTEIN). INTAKE USUALLY GOOD, 50-100%. CONTINUE REGULAR DIET WITH SUPPLEMENT. ENCOURAGE PO ABLE. RD TO FOLLOW WEEKLY.
--- NOTE | 2024-01-20 17:02 | P.PNPSI_ITS ---
Subjective Subjective Date of Service: 01/20/24 Reason For Visit: inability to care for self Interim History: Pt reports voices telling her that pharmaceutic company that makes risperidone is out of business because medication makes people sick. Pt educated that this is not the case. Also, pt explained she was hearing less voices with risperidone. She agreed to restart risperidone, stop olanzapine. She also is agreable to [facility]. Review of Systems Review of Systems Patient has no acute medical complaints at this time Mental Status Exam Mental Status Exam Narrative: Appearance: wearing casual clothing. Fair hygiene, in NAD Behavior: cooperative Psychomotor: no agitation or retardation noted Speech: clear, normal rate, some delayed in response but mostly as she is trying to retrieve information, spontaneous TP: some degree of expressive aphasia TC: feeling slowed down Mood: good Affect: congruent, and bright, non labile SI: none expressed HI: none expressed VH/AH: does not appear internally preoccupied Delusions: no overt delusions but clear confabulation Insight/judgment: impaired x 2 Memory/cog: alert, not oriented to situation or place. Diagnostics Vital Signs (24Hr): Vital Signs - 24 hr 01/19/24 19:30 01/20/24 07:45 Temperature 98.5 F 97.9 F Pulse Rate 106 H 93 Respiratory Rate 18 18 Blood Pressure 140/65 H 128/61 Pulse Oximetry 98 99 Oxygen Delivery Method Room Air Room Air BMI result Body Mass Index 20.5 Labs 12/31/23 06:38 Imaging Radiology Impressions: ITS Impressions Head CT 01/01/24 09:46 IMPRESSION: There are scattered chronic small vessel ischemic changes within the periventricular white matter. Otherwise unremarkable examination. No evidence of acute territorial infarct or hemorrhage. Medications Medications Current Medications Acetaminophen (Acetaminophen 325 Mg Tablet) 650 mg PO Q6H PRN PRN Reason: Headache/Pain Mild Scale (1-3) Last Admin: 01/15/24 09:14 Dose: 650 mg Al Hydroxide/Mg Hydroxide (Magnesium Hydrox/Alum Hydrox 30 Ml Oral.Susp) 30 ml PO Q6H PRN PRN Reason: Heartburn/Nausea Hydroxyzine HCl (Hydroxyzine Hcl 25 Mg Tablet) 25 mg PO Q6H PRN PRN Reason: Anxiety Last Admin: 01/11/24 21:23 Dose: 25 mg Magnesium Hydroxide (Milk Of Magnesia 30 Ml Oral.Susp) 30 ml PO DAILY PRN PRN Reason: Constipation Risperidone (Risperidone 1 Mg Tablet) 1 mg PO BID JAMI Trazodone HCl (Trazodone Hcl 50 Mg Tablet) 50 mg PO BEDTIME MRX1 PRN PRN Reason: Insomnia Last Admin: 01/08/24 20:11 Dose: 50 mg Allergies Allergies Allergy/AdvReac Type Severity Reaction Status Date / Time No Known Allergies Allergy Verified 12/31/23 00:14 Assessment & Plan Assessment & Plan (1) Major neurocognitive disorder: Status: Acute Code(s): F03.90 - Unspecified dementia, unspecified severity, without behavioral disturbance, psychotic disturbance, mood disturbance, and anxiety (2) Schizoaffective disorder: Status: Acute Code(s): F25.9 - Schizoaffective disorder, unspecified Assessment and Plan: with primarily erotomatic delusions (she does reports hearing voices) Plan Pt is a 78-year-old female with a PMH significant for?osteoporosis, depression, and schizophrenia who is admitted to [facility] for increasing anxiety and nervousness. y Plan 01/04/continue tx plan 01/05. continue tx. 01/06 continue tx. will switch to risperidone to target AH. 0.5mg po BID. 01/07 continue tx. 01/08: stable. continue current mgmt. 01/09: feeling slowed down, which may indicate progress in getting mood disorder under control. appears well. continue current mgmt. 01/10 continue tx. 01/11 continue tx. 01/12 continue tx 01/13 may increase risperidone to 0.5mg po daily and 1mg po qhs- monitor orth hotn 01/15 Patient pleasant on approach. Said she had a toothache but that Tylenol has cleared up. Occupational Therapist Rehab Manager and nurse looked where she indicated to take was, left upper molar and no signs of abscess. Patient did not take Risperdal this morning. On inquiry she said she heard on the radio that there was a Ban on all Risperdal. However commercial loan underwriter discussed this with her and reassured her that there is no Ban and patient thus said she would resume taking the medication. 01/17 continue current medications. may discuss alternative 01/18 low dose haldol added 01/19 pt agreed to restart risperidone as voices were better controlled with this medication. Reason for continued inpatient stay Substantial Risk for: inability to function Time Spent With Patient Time: Total time managing care of this patient today ____ minutes.
[2024-01-20] MEDS: risperiDONE 1 MG TABLET PO (20:11)
[2024-01-20 21:16] VITALS: BP 126/60; PULSE 96; RESP 17; TEMP 36.4; O2SAT 98
[2024-01-21 07:45] VITALS: BP 125/57; PULSE 97; RESP 18; TEMP 37; O2SAT 95
[2024-01-21] MEDS: risperiDONE 1 MG TABLET PO (08:11)
[2024-01-21 13:14] VITALS: BMI 18.8
[2024-01-21 18:00] VITALS: BP 135/60; PULSE 90; RESP 16; TEMP 36.6; O2SAT 95
[2024-01-21] MEDS: traZODone HCL 50 MG TABLET PO (21:35)
[2024-01-21] MEDS: hydrOXYzine HCL 25 MG TABLET PO (21:38)
--- NOTE | 2024-01-21 21:43 | HO.PSYCHPN ---
Subjective Subjective Date of Service: 01/21/24 Reason For Visit: inability to care for self Subjective Notes: Conditional Voluntary Interim History: Pt reports doing well. She reports she enjoys being here. She denies SI/HI. She reports she feels safe here on the unit. She reports she is not hearing as much from boyfriend . No behavioral concerns. Medication Compliance: Yes Review of Systems Review of Systems Patient has no acute medical complaints at this time Mental Status Exam Mental Status Exam Narrative: Appearance: wearing casual clothing. Fair hygiene, in NAD Behavior: cooperative Psychomotor: no agitation or retardation noted Speech: clear, normal rate, some delayed in response but mostly as she is trying to retrieve information, spontaneous TP: some degree of expressive aphasia TC: feeling slowed down Mood: good Affect: congruent, and bright, non labile SI: none expressed HI: none expressed VH/AH: does not appear internally preoccupied Delusions: no overt delusions but clear confabulation Insight/judgment: impaired x 2 Memory/cog: alert, not oriented to situation or place. Diagnostics Vital Signs (24Hr): Vital Signs - 24 hr 01/21/24 07:45 Temperature 98.6 F Pulse Rate 97 Respiratory Rate 18 Blood Pressure 125/57 L Pulse Oximetry 95 Oxygen Delivery Method Room Air BMI result Body Mass Index 18.8 Labs 12/31/23 06:38 Imaging Radiology Impressions: ITS Impressions Head CT 01/01/24 09:46 IMPRESSION: There are scattered chronic small vessel ischemic changes within the periventricular white matter. Otherwise unremarkable examination. No evidence of acute territorial infarct or hemorrhage. Medications Medications Current Medications Acetaminophen (Acetaminophen 325 Mg Tablet) 650 mg PO Q6H PRN PRN Reason: Headache/Pain Mild Scale (1-3) Last Admin: 01/15/24 09:14 Dose: 650 mg Al Hydroxide/Mg Hydroxide (Magnesium Hydrox/Alum Hydrox 30 Ml Oral.Susp) 30 ml PO Q6H PRN PRN Reason: Heartburn/Nausea Hydroxyzine HCl (Hydroxyzine Hcl 25 Mg Tablet) 25 mg PO Q6H PRN PRN Reason: Anxiety Last Admin: 01/21/24 21:38 Dose: 25 mg Magnesium Hydroxide (Milk Of Magnesia 30 Ml Oral.Susp) 30 ml PO DAILY PRN PRN Reason: Constipation Risperidone (Risperidone 1 Mg Tablet) 1 mg PO BID JAMI Last Admin: 01/21/24 08:11 Dose: 1 mg Trazodone HCl (Trazodone Hcl 50 Mg Tablet) 50 mg PO BEDTIME MRX1 PRN PRN Reason: Insomnia Last Admin: 01/21/24 21:35 Dose: 50 mg Allergies Allergies Allergy/AdvReac Type Severity Reaction Status Date / Time No Known Allergies Allergy Verified 12/31/23 00:14 Assessment & Plan Assessment & Plan (1) Major neurocognitive disorder: Status: Acute Code(s): F03.90 - Unspecified dementia, unspecified severity, without behavioral disturbance, psychotic disturbance, mood disturbance, and anxiety (2) Schizoaffective disorder: Status: Acute Code(s): F25.9 - Schizoaffective disorder, unspecified Assessment and Plan: with primarily erotomatic delusions (she does reports hearing voices) Plan Pt is a 78-year-old female with a PMH significant for?osteoporosis, depression, and schizophrenia who is admitted to [facility] for increasing anxiety and nervousness. y Plan 01/04/continue tx plan 01/05. continue tx. 01/06 continue tx. will switch to risperidone to target AH. 0.5mg po BID. 01/07 continue tx. 01/08: stable. continue current mgmt. 01/09: feeling slowed down, which may indicate progress in getting mood disorder under control. appears well. continue current mgmt. 01/10 continue tx. 01/11 continue tx. 01/12 continue tx 01/13 may increase risperidone to 0.5mg po daily and 1mg po qhs- monitor orth hotn 01/15 Patient pleasant on approach. Said she had a toothache but that Tylenol has cleared up. Pediatric Neuropsychologist and nurse looked where she indicated to take was, left upper molar and no signs of abscess. Patient did not take Risperdal this morning. On inquiry she said she heard on the radio that there was a Ban on all Risperdal. However caption writer discussed this with her and reassured her that there is no Ban and patient thus said she would resume taking the medication. 01/17 continue current medications. may discuss alternative 01/18 low dose haldol added 01/19 pt agreed to restart risperidone as voices were better controlled with this medication. 01/20 continue tx. Reason for continued inpatient stay Substantial Risk for: inability to function Time Spent With Patient Time: Total time managing care of this patient today ____ minutes.
[2024-01-22 06:00] VITALS: BP 116/56; PULSE 94; RESP 18; TEMP 36.6; O2SAT 97
--- NOTE | 2024-01-22 16:05 | HO.PSYCHPN ---
Subjective Subjective Date of Service: 01/22/24 Reason For Visit: inability to care for self Subjective Notes: Conditional Voluntary Interim History: Pt reports having nausea yesterday which she states is related to risperidone. I suspect it may be more related to acid reflux than antipsychotic. Will add omeprazole/pepcid. will continue to monitor. No behavioral concerns. Review of Systems Review of Systems Patient has no acute medical complaints at this time Mental Status Exam Mental Status Exam Narrative: Appearance: wearing casual clothing. Fair hygiene, in NAD Behavior: cooperative Psychomotor: no agitation or retardation noted Speech: clear, normal rate, some delayed in response but mostly as she is trying to retrieve information, spontaneous TP: some degree of expressive aphasia TC: feeling slowed down Mood: good Affect: congruent, and bright, non labile SI: none expressed HI: none expressed VH/AH: does not appear internally preoccupied Delusions: no overt delusions but clear confabulation Insight/judgment: impaired x 2 Memory/cog: alert, not oriented to situation or place. Diagnostics Vital Signs (24Hr): Vital Signs - 24 hr 01/21/24 18:00 01/22/24 06:00 Temperature 98 F 97.9 F Pulse Rate 90 94 Respiratory Rate 16 18 Blood Pressure 135/60 116/56 L Pulse Oximetry 95 97 Oxygen Delivery Method Room Air Room Air BMI result Body Mass Index 18.8 Labs 12/31/23 06:38 Imaging Radiology Impressions: ITS Impressions Head CT 01/01/24 09:46 IMPRESSION: There are scattered chronic small vessel ischemic changes within the periventricular white matter. Otherwise unremarkable examination. No evidence of acute territorial infarct or hemorrhage. Medications Medications Current Medications Acetaminophen (Acetaminophen 325 Mg Tablet) 650 mg PO Q6H PRN PRN Reason: Headache/Pain Mild Scale (1-3) Last Admin: 01/15/24 09:14 Dose: 650 mg Al Hydroxide/Mg Hydroxide (Magnesium Hydrox/Alum Hydrox 30 Ml Oral.Susp) 30 ml PO Q6H PRN PRN Reason: Heartburn/Nausea Famotidine (Famotidine 20 Mg Tablet) 20 mg PO BEDTIME JAMI Hydroxyzine HCl (Hydroxyzine Hcl 25 Mg Tablet) 25 mg PO Q6H PRN PRN Reason: Anxiety Last Admin: 01/21/24 21:38 Dose: 25 mg Magnesium Hydroxide (Milk Of Magnesia 30 Ml Oral.Susp) 30 ml PO DAILY PRN PRN Reason: Constipation Omeprazole (Omeprazole 20 Mg Capsule.) 20 mg PO DAILY@0800 JAMI Risperidone (Risperidone 1 Mg Tablet) 1 mg PO BID [facility] Last Admin: 01/22/24 08:37 Dose: Not Given Trazodone HCl (Trazodone Hcl 50 Mg Tablet) 50 mg PO BEDTIME MRX1 PRN PRN Reason: Insomnia Last Admin: 01/21/24 21:35 Dose: 50 mg Allergies Allergies Allergy/AdvReac Type Severity Reaction Status Date / Time No Known Allergies Allergy Verified 12/31/23 00:14 Assessment & Plan Assessment & Plan (1) Major neurocognitive disorder: Status: Acute Code(s): F03.90 - Unspecified dementia, unspecified severity, without behavioral disturbance, psychotic disturbance, mood disturbance, and anxiety (2) Schizoaffective disorder: Status: Acute Code(s): F25.9 - Schizoaffective disorder, unspecified Assessment and Plan: with primarily erotomatic delusions (she does reports hearing voices) Plan Pt is a 78-year-old female with a PMH significant for?osteoporosis, depression, and schizophrenia who is admitted to [facility] for increasing anxiety and nervousness. y Plan 01/04/continue tx plan 01/05. continue tx. 01/06 continue tx. will switch to risperidone to target AH. 0.5mg po BID. 01/07 continue tx. 01/08: stable. continue current mgmt. 01/09: feeling slowed down, which may indicate progress in getting mood disorder under control. appears well. continue current mgmt. 01/10 continue tx. 01/11 continue tx. 01/12 continue tx 01/13 may increase risperidone to 0.5mg po daily and 1mg po qhs- monitor orth hotn 01/15 Patient pleasant on approach. Said she had a toothache but that Tylenol has cleared up. Nursing Coordinator and nurse looked where she indicated to take was, left upper molar and no signs of abscess. Patient did not take Risperdal this morning. On inquiry she said she heard on the radio that there was a Ban on all Risperdal. However resume writer discussed this with her and reassured her that there is no Ban and patient thus said she would resume taking the medication. 01/17 continue current medications. may discuss alternative 01/18 low dose haldol added 01/19 pt agreed to restart risperidone as voices were better controlled with this medication. 01/20 continue tx. 01/21 continue tx. Reason for continued inpatient stay Substantial Risk for: inability to function Time Spent With Patient Time: Total time managing care of this patient today ____ minutes.
[2024-01-22 18:00] VITALS: BP 147/65; PULSE 97; RESP 16; TEMP 36.4; O2SAT 98
[2024-01-23 08:00] VITALS: BP 130/84; PULSE 75; RESP 18; TEMP 36.4; O2SAT 97
--- NOTE | 2024-01-23 11:12 | P.PNPSI_ITS ---
Subjective Subjective Date of Service: 01/23/24 Reason For Visit: inability to care for self Subjective Notes: Conditional Voluntary Interim History: Patient was seen and discussed in rounds today. Records and plans were reviewed. She has been refusing the Risperdal and has a lot of paranoid preoccupations about pharmaceuticals. I suggested switching that to Invega but she is not accepting. No behavioral issues. Eating and sleeping adequately. No changes were made today Medication Compliance: Intermittent Review of Systems Review of Systems Yes all other systems are reviewed and are negative Mental Status Exam Mental Status Exam Narrative: In today's visit she is alert, pleasant and interactive. She is oriented to person and place. Speech is normal. Good eye contact. Affect is appropriate and irritable at times. No acute signs of psychosis but has paranoid ideations and delusions and preoccupations around medications. No SI. Cognitively impaired. Judgment impaired Diagnostics Vital Signs (24Hr): Vital Signs - 24 hr 01/22/24 18:00 Temperature 97.6 F Pulse Rate 97 Respiratory Rate 16 Blood Pressure 147/65 H Pulse Oximetry 98 Oxygen Delivery Method Room Air BMI result Body Mass Index 18.8 Labs 12/31/23 06:38 Imaging Radiology Impressions: ITS Impressions Head CT 01/01/24 09:46 IMPRESSION: There are scattered chronic small vessel ischemic changes within the periventricular white matter. Otherwise unremarkable examination. No evidence of acute territorial infarct or hemorrhage. Medications Medications Current Medications Acetaminophen (Acetaminophen 325 Mg Tablet) 650 mg PO Q6H PRN PRN Reason: Headache/Pain Mild Scale (1-3) Last Admin: 01/15/24 09:14 Dose: 650 mg Al Hydroxide/Mg Hydroxide (Magnesium Hydrox/Alum Hydrox 30 Ml Oral.Susp) 30 ml PO Q6H PRN PRN Reason: Heartburn/Nausea Famotidine (Famotidine 20 Mg Tablet) 20 mg PO BEDTIME [facility] Last Admin: 01/22/24 20:13 Dose: Not Given Hydroxyzine HCl (Hydroxyzine Hcl 25 Mg Tablet) 25 mg PO Q6H PRN PRN Reason: Anxiety Last Admin: 01/21/24 21:38 Dose: 25 mg Magnesium Hydroxide (Milk Of Magnesia 30 Ml Oral.Susp) 30 ml PO DAILY PRN PRN Reason: Constipation Omeprazole (Omeprazole 20 Mg Capsule.) 20 mg PO DAILY@0800 [facility] Last Admin: 01/23/24 06:01 Dose: Not Given Risperidone (Risperidone 1 Mg Tablet) 1 mg PO BID JAMI Last Admin: 01/23/24 09:26 Dose: Not Given Trazodone HCl (Trazodone Hcl 50 Mg Tablet) 50 mg PO BEDTIME MRX1 PRN PRN Reason: Insomnia Last Admin: 01/21/24 21:35 Dose: 50 mg Allergies Allergies Allergy/AdvReac Type Severity Reaction Status Date / Time No Known Allergies Allergy Verified 12/31/23 00:14 Assessment & Plan Assessment & Plan (1) Major neurocognitive disorder: Status: Acute Code(s): F03.90 - Unspecified dementia, unspecified severity, without behavioral disturbance, psychotic disturbance, mood disturbance, and anxiety (2) Schizoaffective disorder: Status: Acute Code(s): F25.9 - Schizoaffective disorder, unspecified Assessment and Plan: with primarily erotomatic delusions (she does reports hearing voices) Plan Pt is a 78-year-old female with a PMH significant for?osteoporosis, depression, and schizophrenia who is admitted to [facility] for increasing anxiety and nervousness. y Plan 01/04/continue tx plan 01/05. continue tx. 01/06 continue tx. will switch to risperidone to target AH. 0.5mg po BID. 01/07 continue tx. 01/08: stable. continue current mgmt. 01/09: feeling slowed down, which may indicate progress in getting mood disorder under control. appears well. continue current mgmt. 01/10 continue tx. 01/11 continue tx. 01/12 continue tx 01/13 may increase risperidone to 0.5mg po daily and 1mg po qhs- monitor orth hotn 01/15 Patient pleasant on approach. Said she had a toothache but that Tylenol has cleared up. Electric Meter Tester and nurse looked where she indicated to take was, left upper molar and no signs of abscess. Patient did not take Risperdal this morning. On inquiry she said she heard on the radio that there was a Ban on all Risperdal. However selling underwriter discussed this with her and reassured her that there is no Ban and patient thus said she would resume taking the medication. 01/17 continue current medications. may discuss alternative 01/18 low dose haldol added 01/19 pt agreed to restart risperidone as voices were better controlled with this medication. 01/20 continue tx. 01/21 continue tx. 01/23/2024: Continue current regimen and plans Patient educated on: medication risk/benefits Reason for continued inpatient stay Substantial Risk for: med/psych decompensation Time Spent With Patient Time: Total time managing care of this patient today ____ minutes.
[2024-01-23] MEDS: traZODone HCL 50 MG TABLET PO (20:08)
[2024-01-23] MEDS: hydrOXYzine HCL 25 MG TABLET PO (20:09)
[2024-01-24 08:43] VITALS: BP 137/64; PULSE 80; RESP 16; TEMP 36.2; O2SAT 99
--- NOTE | 2024-01-24 10:57 | P.PNPSI_ITS ---
Subjective Subjective Date of Service: 01/24/24 Reason For Visit: inability to care for self Subjective Notes: Conditional Voluntary Interim History: Patient was seen and discussed in rounds today. Records and plans were reviewed. She she continues to be paranoid and delusional and refusing most medications, Risperdal, Prilosec. She has been having self dialogue in talking to her ?future ?. Medication Compliance: No Review of Systems Review of Systems Yes all other systems are reviewed and are negative Mental Status Exam Mental Status Exam Narrative: In today's visit she is alert, pleasant and interactive. She is oriented to person and place. Speech is normal. Good eye contact. Affect is appropriate and irritable at times. No acute signs of psychosis but has paranoid ideations and delusions and preoccupations around medications. No SI. Cognitively impaired. Judgment impaired Diagnostics Vital Signs (24Hr): Vital Signs - 24 hr 01/24/24 08:43 Temperature 97.1 F Pulse Rate 80 Respiratory Rate 16 Blood Pressure 137/64 Pulse Oximetry 99 Oxygen Delivery Method Room Air BMI result Body Mass Index 18.8 Labs 12/31/23 06:38 Imaging Radiology Impressions: ITS Impressions Head CT 01/01/24 09:46 IMPRESSION: There are scattered chronic small vessel ischemic changes within the periventricular white matter. Otherwise unremarkable examination. No evidence of acute territorial infarct or hemorrhage. Medications Medications Current Medications Acetaminophen (Acetaminophen 325 Mg Tablet) 650 mg PO Q6H PRN PRN Reason: Headache/Pain Mild Scale (1-3) Last Admin: 01/15/24 09:14 Dose: 650 mg Al Hydroxide/Mg Hydroxide (Magnesium Hydrox/Alum Hydrox 30 Ml Oral.Susp) 30 ml PO Q6H PRN PRN Reason: Heartburn/Nausea Famotidine (Famotidine 20 Mg Tablet) 20 mg PO BEDTIME [facility] Last Admin: 01/24/24 01:57 Dose: Not Given Hydroxyzine HCl (Hydroxyzine Hcl 25 Mg Tablet) 25 mg PO Q6H PRN PRN Reason: Anxiety Last Admin: 01/23/24 20:09 Dose: 25 mg Magnesium Hydroxide (Milk Of Magnesia 30 Ml Oral.Susp) 30 ml PO DAILY PRN PRN Reason: Constipation Omeprazole (Omeprazole 20 Mg Capsule.Dr) 20 mg PO DAILY@0800 [facility] Last Admin: 01/24/24 08:34 Dose: Not Given Risperidone (Risperidone 1 Mg Tablet) 1 mg PO BID [facility] Last Admin: 01/24/24 08:35 Dose: Not Given Trazodone HCl (Trazodone Hcl 50 Mg Tablet) 50 mg PO BEDTIME MRX1 PRN PRN Reason: Insomnia Last Admin: 01/23/24 20:08 Dose: 50 mg Allergies Allergies Allergy/AdvReac Type Severity Reaction Status Date / Time No Known Allergies Allergy Verified 12/31/23 00:14 Assessment & Plan Assessment & Plan (1) Major neurocognitive disorder: Status: Acute Code(s): F03.90 - Unspecified dementia, unspecified severity, without behavioral disturbance, psychotic disturbance, mood disturbance, and anxiety (2) Schizoaffective disorder: Status: Acute Code(s): F25.9 - Schizoaffective disorder, unspecified Assessment and Plan: with primarily erotomatic delusions (she does reports hearing voices) Plan Pt is a 78-year-old female with a PMH significant for?osteoporosis, depression, and schizophrenia who is admitted to [facility] for increasing anxiety and nervousness. y Plan 01/04/continue tx plan 01/05. continue tx. 01/06 continue tx. will switch to risperidone to target AH. 0.5mg po BID. 01/07 continue tx. 01/08: stable. continue current mgmt. 01/09: feeling slowed down, which may indicate progress in getting mood disorder under control. appears well. continue current mgmt. 01/10 continue tx. 01/11 continue tx. 01/12 continue tx 01/13 may increase risperidone to 0.5mg po daily and 1mg po qhs- monitor orth valentin 01/15 Patient pleasant on approach. Said she had a toothache but that Tylenol has cleared up. Reducing System Operator and nurse looked where she indicated to take was, left upper molar and no signs of abscess. Patient did not take Risperdal this morning. On inquiry she said she heard on the radio that there was a Ban on all Risperdal. However marine underwriter discussed this with her and reassured her that there is no Ban and patient thus said she would resume taking the medication. 01/17 continue current medications. may discuss alternative 01/18 low dose haldol added 01/19 pt agreed to restart risperidone as voices were better controlled with this medication. 3/14 continue tx. 01/21 continue tx. 01/23/2024: Continue current regimen and plans 01/24/2024: Continue current regimen and plans Reason for continued inpatient stay Substantial Risk for: med/psych decompensation Time Spent With Patient Time: Total time managing care of this patient today ____ minutes.
[2024-01-24 18:00] VITALS: BP 127/58; PULSE 81; RESP 18; TEMP 36.5; O2SAT 98
[2024-01-24] MEDS: hydrOXYzine HCL 25 MG TABLET PO (21:11)
[2024-01-24] MEDS: traZODone HCL 50 MG TABLET PO (21:11)
[2024-01-25 08:03] VITALS: BP 124/55; PULSE 86; RESP 18; TEMP 36.8; O2SAT 98
--- NOTE | 2024-01-25 09:11 | PC.NURSE ---
Kanika declined morning medications risperidone and omeprazole despite education; Keily Linton DEPARTMENT OF SOCIOLOGY CHAIR notified.
--- NOTE | 2024-01-25 09:15 | PC.NURSE ---
BP 124/55, Keily Linton NP notified and Kainka is asymptomatic.
--- NOTE | 2024-01-25 11:19 | P.PNPSI_ITS ---
Subjective Subjective Date of Service: 01/25/24 Reason For Visit: inability to care for self Subjective Notes: Conditional Voluntary Interim History: Pt has been sleeping through the night. She has been more isolating. She continued to decline risperidone. She reports she had side effect with risperidone and does not want to take it anymore. This check writer salesperson explained that we can try different medication and she can try it. She denies SI/HI. Review of Systems Review of Systems Patient has no acute medical complaints at this time Yes all other systems are reviewed and are negative Mental Status Exam Mental Status Exam Patient Appearance: Well Grooomed and Appropriate Patient Orientation: Person and Situation Level of Consciousness: Awake and Appropriate Patient Behavior: Guarded and Passive Mood Description: Withdrawn Affect Description: Constricted Patient Cognition Impaired: Yes Ability to Follow Directions: Good Speech Pattern: Clear Diagnostics Vital Signs (24Hr): Vital Signs - 24 hr 01/24/24 18:00 01/25/24 08:03 Temperature 97.7 F 98.2 F Pulse Rate 81 86 Respiratory Rate 18 18 Blood Pressure 127/58 L 124/55 L Pulse Oximetry 98 98 Oxygen Delivery Method Room Air Room Air BMI result Body Mass Index 18.8 Labs 12/31/23 06:38 Imaging Radiology Impressions: ITS Impressions Head CT 01/01/24 09:46 IMPRESSION: There are scattered chronic small vessel ischemic changes within the periventricular white matter. Otherwise unremarkable examination. No evidence of acute territorial infarct or hemorrhage. Medications Medications Current Medications Acetaminophen (Acetaminophen 325 Mg Tablet) 650 mg PO Q6H PRN PRN Reason: Headache/Pain Mild Scale (1-3) Last Admin: 01/15/24 09:14 Dose: 650 mg Al Hydroxide/Mg Hydroxide (Magnesium Hydrox/Alum Hydrox 30 Ml Oral.Susp) 30 ml PO Q6H PRN PRN Reason: Heartburn/Nausea Famotidine (Famotidine 20 Mg Tablet) 20 mg PO BEDTIME [facility] Last Admin: 01/24/24 21:15 Dose: Not Given Hydroxyzine HCl (Hydroxyzine Hcl 25 Mg Tablet) 25 mg PO Q6H PRN PRN Reason: Anxiety Last Admin: 01/24/24 21:11 Dose: 25 mg Magnesium Hydroxide (Milk Of Magnesia 30 Ml Oral.Susp) 30 ml PO DAILY PRN PRN Reason: Constipation Omeprazole (Omeprazole 20 Mg Capsule.Dr) 20 mg PO DAILY@0800 [facility] Last Admin: 01/25/24 08:30 Dose: Not Given Risperidone (Risperidone 1 Mg Tablet) 1 mg PO BID [facility] Last Admin: 01/25/24 08:30 Dose: Not Given Trazodone HCl (Trazodone Hcl 50 Mg Tablet) 50 mg PO BEDTIME MRX1 PRN PRN Reason: Insomnia Last Admin: 01/24/24 21:11 Dose: 50 mg Allergies Allergies Allergy/AdvReac Type Severity Reaction Status Date / Time No Known Allergies Allergy Verified 12/31/23 00:14 Assessment & Plan Assessment & Plan (1) Major neurocognitive disorder: Status: Acute Code(s): F03.90 - Unspecified dementia, unspecified severity, without behavioral disturbance, psychotic disturbance, mood disturbance, and anxiety (2) Schizoaffective disorder: Status: Acute Code(s): F25.9 - Schizoaffective disorder, unspecified Assessment and Plan: with primarily erotomatic delusions (she does reports hearing voices) Plan Pt is a 78-year-old female with a PMH significant for?osteoporosis, depression, and schizophrenia who is admitted to [facility] for increasing anxiety and nervousness. y Plan 01/04/continue tx plan 01/05. continue tx. 01/06 continue tx. will switch to risperidone to target AH. 0.5mg po BID. 01/07 continue tx. 01/08: stable. continue current mgmt. 01/09: feeling slowed down, which may indicate progress in getting mood disorder under control. appears well. continue current mgmt. 01/10 continue tx. 01/11 continue tx. 01/12 continue tx 01/13 may increase risperidone to 0.5mg po daily and 1mg po qhs- monitor orth valentin 01/15 Patient pleasant on approach. Said she had a toothache but that Tylenol has cleared up. Welfare Eligibility Worker and nurse looked where she indicated to take was, left upper molar and no signs of abscess. Patient did not take Risperdal this morning. On inquiry she said she heard on the radio that there was a Ban on all Risperdal. However check writer salesperson discussed this with her and reassured her that there is no Ban and patient thus said she would resume taking the medication. 01/17 continue current medications. may discuss alternative 01/18 low dose haldol added 01/19 pt agreed to restart risperidone as voices were better controlled with this medication. 01/20 continue tx. 01/21 continue tx. 01/23/2024: Continue current regimen and plans 01/24/2024: Continue current regimen and plans 01/24 switch risperidone to paliperidone Reason for continued inpatient stay Substantial Risk for: inability to function Time Spent With Patient Time: Total time managing care of this patient today ____ minutes.
[2024-01-25] MEDS: Famotidine 20 MG TABLET PO (20:30)
[2024-01-25] MEDS: Paliperidone ER 6 MG TAB.ER.24 PO (20:30)
[2024-01-25 21:02] VITALS: BP 156/72; PULSE 81; RESP 17; TEMP 36.1; O2SAT 100
[2024-01-26 06:00] VITALS: BP 126/60; PULSE 86; RESP 16; TEMP 36.2; O2SAT 99
[2024-01-26] MEDS: Omeprazole 20 MG CAPSULE.DR PO (08:12)
--- NOTE | 2024-01-26 10:03 | P.PNPSI_ITS ---
Subjective Subjective Date of Service: 01/26/24 Reason For Visit: inability to care for self Subjective Notes: Conditional Voluntary Interim History: Pt reports she had nausea today again and does not think she should take any medications. She states they gave me medications for wellness, but I am well, I don't need them. She denies SI/HI. She self dialogues at times. No agitation or combative behaviors. She is visible on the unit, social with select peers. Diagnostics Vital Signs (24Hr): Vital Signs - 24 hr 01/25/24 21:02 01/26/24 06:00 Temperature 97 F 97.2 F Pulse Rate 81 86 Respiratory Rate 17 16 Blood Pressure 156/72 H 126/60 Pulse Oximetry 100 99 Oxygen Delivery Method Room Air Room Air BMI result Body Mass Index 18.8 Labs 12/31/23 06:38 Imaging Radiology Impressions: ITS Impressions Head CT 01/01/24 09:46 IMPRESSION: There are scattered chronic small vessel ischemic changes within the periventricular white matter. Otherwise unremarkable examination. No evidence of acute territorial infarct or hemorrhage. Medications Medications Current Medications Acetaminophen (Acetaminophen 325 Mg Tablet) 650 mg PO Q6H PRN PRN Reason: Headache/Pain Mild Scale (1-3) Last Admin: 01/15/24 09:14 Dose: 650 mg Al Hydroxide/Mg Hydroxide (Magnesium Hydrox/Alum Hydrox 30 Ml Oral.Susp) 30 ml PO Q6H PRN PRN Reason: Heartburn/Nausea Famotidine (Famotidine 20 Mg Tablet) 20 mg PO BEDTIME [facility] Last Admin: 01/25/24 20:30 Dose: 20 mg Hydroxyzine HCl (Hydroxyzine Hcl 25 Mg Tablet) 25 mg PO Q6H PRN PRN Reason: Anxiety Last Admin: 01/24/24 21:11 Dose: 25 mg Magnesium Hydroxide (Milk Of Magnesia 30 Ml Oral.Susp) 30 ml PO DAILY PRN PRN Reason: Constipation Omeprazole (Omeprazole 20 Mg Capsule.Dr) 20 mg PO DAILY@0800 [facility] Last Admin: 01/26/24 08:12 Dose: 20 mg Paliperidone (Paliperidone Er 6 Mg Tab.Er.24) 6 mg PO BEDTIME [facility] Last Admin: 01/25/24 20:30 Dose: 6 mg Trazodone HCl (Trazodone Hcl 50 Mg Tablet) 50 mg PO BEDTIME MRX1 PRN PRN Reason: Insomnia Last Admin: 01/24/24 21:11 Dose: 50 mg Allergies Allergies Allergy/AdvReac Type Severity Reaction Status Date / Time No Known Allergies Allergy Verified 12/31/23 00:14 Assessment & Plan Assessment & Plan (1) Major neurocognitive disorder: Status: Acute Code(s): F03.90 - Unspecified dementia, unspecified severity, without behavioral disturbance, psychotic disturbance, mood disturbance, and anxiety (2) Schizoaffective disorder: Status: Acute Code(s): F25.9 - Schizoaffective disorder, unspecified Assessment and Plan: with primarily erotomatic delusions (she does reports hearing voices) Plan Pt is a 78-year-old female with a PMH significant for?osteoporosis, depression, and schizophrenia who is admitted to [facility] for increasing anxiety and nervousness. y Plan 01/04/continue tx plan 01/05. continue tx. 01/06 continue tx. will switch to risperidone to target AH. 0.5mg po BID. 01/07 continue tx. 01/08: stable. continue current mgmt. 01/09: feeling slowed down, which may indicate progress in getting mood disorder under control. appears well. continue current mgmt. 01/10 continue tx. 01/11 continue tx. 01/12 continue tx 01/13 may increase risperidone to 0.5mg po daily and 1mg po qhs- monitor orth hotn 01/15 Patient pleasant on approach. Said she had a toothache but that Tylenol has cleared up. Cold Header Operator and nurse looked where she indicated to take was, left upper molar and no signs of abscess. Patient did not take Risperdal this morning. On inquiry she said she heard on the radio that there was a Ban on all Risperdal. However writer technical publications discussed this with her and reassured her that there is no Ban and patient thus said she would resume taking the medication. 01/17 continue current medications. may discuss alternative 01/18 low dose haldol added 01/19 pt agreed to restart risperidone as voices were better controlled with this medication. 01/20 continue tx. 01/21 continue tx. 01/23/2024: Continue current regimen and plans 01/24/2024: Continue current regimen and plans 01/24 switch risperidone to paliperidone 01/25 continue tx. Reason for continued inpatient stay Substantial Risk for: inability to function Time Spent With Patient Time: Total time managing care of this patient today ____ minutes.
[2024-01-26 18:00] VITALS: BP 133/88; PULSE 96; RESP 18; TEMP 36.6; O2SAT 99
[2024-01-27 08:10] VITALS: BP 140/62; PULSE 88; RESP 16; TEMP 36.8; O2SAT 100
--- NOTE | 2024-01-27 10:03 | PC.NURSE ---
Declined to take Omeprazole; Keily Linton NP notified.
--- NOTE | 2024-01-27 12:01 | MHC.CLN ---
F/U DIET=REGULAR. ENSURE SUPPLEMENT BID (700 KCALS, 40 G PROTEIN). INTAKE VARIABLE WITH MOST MEALS 50% OR GREATER. CURRENT WEIGHT=49.7 KG. QUESTION ACCURACY 01/13=54.1 KG. INTAKE DOES NOT SUPPORT SIGNIFICANT WEIGHT LOSS OR WEIGHT GAIN. CONTINUE REGULAR DIET WITH SUPPLEMENT. ENCOURAGE PO ABLE. RD TO FOLLOW WEEKLY.
[2024-01-27 19:00] VITALS: BP 140/62; PULSE 91; RESP 16; TEMP 36.5; O2SAT 99
--- NOTE | 2024-01-27 19:46 | HO.PSYCHPN ---
Subjective Subjective Date of Service: 01/27/24 Reason For Visit: inability to care for self Subjective Notes: Conditional Voluntary Interim History: Pt slept through the night. She continues to decline medication as she states those are wellness medications and I am well. She also reports nausea, which she reports is due to medications. She was started on omeprazole for acid reflux but she is also declining this medications. She denies SI/HI. No behavioral concerns. Review of Systems Review of Systems Patient has no acute medical complaints at this time Yes all other systems are reviewed and are negative Mental Status Exam Mental Status Exam Patient Appearance: Well Grooomed and Appropriate Patient Orientation: Person and Situation Level of Consciousness: Awake and Appropriate Patient Behavior: Guarded and Passive Mood Description: Withdrawn Affect Description: Constricted Patient Cognition Impaired: Yes Ability to Follow Directions: Good Speech Pattern: Clear Diagnostics Vital Signs (24Hr): Vital Signs - 24 hr 01/27/24 08:10 Temperature 98.2 F Pulse Rate 88 Respiratory Rate 16 Blood Pressure 140/62 H Pulse Oximetry 100 Oxygen Delivery Method Room Air BMI result Body Mass Index 18.8 Labs 12/31/23 06:38 Imaging Radiology Impressions: ITS Impressions Head CT 01/01/24 09:46 IMPRESSION: There are scattered chronic small vessel ischemic changes within the periventricular white matter. Otherwise unremarkable examination. No evidence of acute territorial infarct or hemorrhage. Medications Medications Current Medications Acetaminophen (Acetaminophen 325 Mg Tablet) 650 mg PO Q6H PRN PRN Reason: Headache/Pain Mild Scale (1-3) Last Admin: 01/15/24 09:14 Dose: 650 mg Al Hydroxide/Mg Hydroxide (Magnesium Hydrox/Alum Hydrox 30 Ml Oral.Susp) 30 ml PO Q6H PRN PRN Reason: Heartburn/Nausea Famotidine (Famotidine 20 Mg Tablet) 20 mg PO BEDTIME [facility] Last Admin: 01/26/24 21:19 Dose: Not Given Hydroxyzine HCl (Hydroxyzine Hcl 25 Mg Tablet) 25 mg PO Q6H PRN PRN Reason: Anxiety Last Admin: 01/24/24 21:11 Dose: 25 mg Magnesium Hydroxide (Milk Of Magnesia 30 Ml Oral.Susp) 30 ml PO DAILY PRN PRN Reason: Constipation Paliperidone (Paliperidone Er 6 Mg Tab.Er.24) 6 mg PO BEDTIME [facility] Last Admin: 01/26/24 21:19 Dose: Not Given Trazodone HCl (Trazodone Hcl 50 Mg Tablet) 50 mg PO BEDTIME PRN PRN Reason: Insomnia Allergies Allergies Allergy/AdvReac Type Severity Reaction Status Date / Time No Known Allergies Allergy Verified 12/31/23 00:14 Assessment & Plan Assessment & Plan (1) Major neurocognitive disorder: Status: Acute Code(s): F03.90 - Unspecified dementia, unspecified severity, without behavioral disturbance, psychotic disturbance, mood disturbance, and anxiety (2) Schizoaffective disorder: Status: Acute Code(s): F25.9 - Schizoaffective disorder, unspecified Assessment and Plan: with primarily erotomatic delusions (she does reports hearing voices) Plan Pt is a 78-year-old female with a PMH significant for?osteoporosis, depression, and schizophrenia who is admitted to [facility] for increasing anxiety and nervousness. y Plan 01/04/continue tx plan 01/05. continue tx. 01/06 continue tx. will switch to risperidone to target AH. 0.5mg po BID. 01/07 continue tx. 01/08: stable. continue current mgmt. 01/09: feeling slowed down, which may indicate progress in getting mood disorder under control. appears well. continue current mgmt. 01/10 continue tx. 01/11 continue tx. 01/12 continue tx 01/13 may increase risperidone to 0.5mg po daily and 1mg po qhs- monitor orth hotn 01/15 Patient pleasant on approach. Said she had a toothache but that Tylenol has cleared up. Leases And Land Supervisor and nurse looked where she indicated to take was, left upper molar and no signs of abscess. Patient did not take Risperdal this morning. On inquiry she said she heard on the radio that there was a Ban on all Risperdal. However expert medical writer discussed this with her and reassured her that there is no Ban and patient thus said she would resume taking the medication. 01/17 continue current medications. may discuss alternative 01/18 low dose haldol added 01/19 pt agreed to restart risperidone as voices were better controlled with this medication. 01/20 continue tx. 01/21 continue tx. 01/23/2024: Continue current regimen and plans 01/24/2024: Continue current regimen and plans 01/24 switch risperidone to paliperidone 01/25 continue tx. 01/26 continue tx. Reason for continued inpatient stay Substantial Risk for: inability to function Time Spent With Patient Time: Total time managing care of this patient today ____ minutes.
[2024-01-28 08:21] VITALS: BP 120/55; PULSE 92; RESP 15; TEMP 36.7; O2SAT 99
--- NOTE | 2024-01-28 08:45 | HO.PSYCHPN ---
Subjective Subjective Date of Service: 01/28/24 Reason For Visit: inability to care for self Subjective Notes: Conditional Voluntary Interim History: Pt slept through the night. She continues to decline medication as she states those are wellness medications and I am well. She reports hearing voices of Dr. Prescott and states that she may finally meet him today after decades of hearing his voice. She also states if I don't see him, is okay, he is very busy Review of Systems Review of Systems Patient has no acute medical complaints at this time Yes all other systems are reviewed and are negative Mental Status Exam Mental Status Exam Patient Appearance: Well Grooomed and Appropriate Patient Orientation: Person and Situation Level of Consciousness: Awake and Appropriate Patient Behavior: Guarded and Passive Mood Description: Withdrawn Affect Description: Constricted Patient Cognition Impaired: Yes Ability to Follow Directions: Good Speech Pattern: Clear Diagnostics Vital Signs (24Hr): Vital Signs - 24 hr 01/27/24 19:00 01/28/24 08:21 Temperature 97.7 F 98.1 F Pulse Rate 91 92 Respiratory Rate 16 15 Blood Pressure 140/62 H 120/55 L Pulse Oximetry 99 99 Oxygen Delivery Method Room Air Room Air BMI result Body Mass Index 18.8 Labs 12/31/23 06:38 Imaging Radiology Impressions: ITS Impressions Head CT 01/01/24 09:46 IMPRESSION: There are scattered chronic small vessel ischemic changes within the periventricular white matter. Otherwise unremarkable examination. No evidence of acute territorial infarct or hemorrhage. Medications Medications Current Medications Acetaminophen (Acetaminophen 325 Mg Tablet) 650 mg PO Q6H PRN PRN Reason: Headache/Pain Mild Scale (1-3) Last Admin: 01/15/24 09:14 Dose: 650 mg Al Hydroxide/Mg Hydroxide (Magnesium Hydrox/Alum Hydrox 30 Ml Oral.Susp) 30 ml PO Q6H PRN PRN Reason: Heartburn/Nausea Famotidine (Famotidine 20 Mg Tablet) 20 mg PO BEDTIME [facility] Last Admin: 01/27/24 22:23 Dose: Not Given Hydroxyzine HCl (Hydroxyzine Hcl 25 Mg Tablet) 25 mg PO Q6H PRN PRN Reason: Anxiety Last Admin: 01/24/24 21:11 Dose: 25 mg Magnesium Hydroxide (Milk Of Magnesia 30 Ml Oral.Susp) 30 ml PO DAILY PRN PRN Reason: Constipation Paliperidone (Paliperidone Er 6 Mg Tab.Er.24) 6 mg PO BEDTIME [facility] Last Admin: 01/27/24 22:24 Dose: Not Given Trazodone HCl (Trazodone Hcl 50 Mg Tablet) 50 mg PO BEDTIME PRN PRN Reason: Insomnia Allergies Allergies Allergy/AdvReac Type Severity Reaction Status Date / Time No Known Allergies Allergy Verified 12/31/23 00:14 Assessment & Plan Assessment & Plan (1) Major neurocognitive disorder: Status: Acute Code(s): F03.90 - Unspecified dementia, unspecified severity, without behavioral disturbance, psychotic disturbance, mood disturbance, and anxiety (2) Schizoaffective disorder: Status: Acute Code(s): F25.9 - Schizoaffective disorder, unspecified Assessment and Plan: with primarily erotomatic delusions (she does reports hearing voices) Plan Pt is a 78-year-old female with a PMH significant for?osteoporosis, depression, and schizophrenia who is admitted to [facility] for increasing anxiety and nervousness. y Plan 01/04/continue tx plan 01/05. continue tx. 01/06 continue tx. will switch to risperidone to target AH. 0.5mg po BID. 01/07 continue tx. 01/08: stable. continue current mgmt. 01/09: feeling slowed down, which may indicate progress in getting mood disorder under control. appears well. continue current mgmt. 01/10 continue tx. 01/11 continue tx. 01/12 continue tx 01/13 may increase risperidone to 0.5mg po daily and 1mg po qhs- monitor orth hotn 01/15 Patient pleasant on approach. Said she had a toothache but that Tylenol has cleared up. Procurement Internship and nurse looked where she indicated to take was, left upper molar and no signs of abscess. Patient did not take Risperdal this morning. On inquiry she said she heard on the radio that there was a Ban on all Risperdal. However functional tester typewriters discussed this with her and reassured her that there is no Ban and patient thus said she would resume taking the medication. 01/17 continue current medications. may discuss alternative 01/18 low dose haldol added 01/19 pt agreed to restart risperidone as voices were better controlled with this medication. 01/20 continue tx. 01/21 continue tx. 01/23/2024: Continue current regimen and plans 01/24/2024: Continue current regimen and plans 01/24 switch risperidone to paliperidone 01/25 continue tx. 01/26 continue tx. 01/27 continue tx. Reason for continued inpatient stay Substantial Risk for: inability to function Time Spent With Patient Time: Total time managing care of this patient today ____ minutes.
[2024-01-28 09:55] VITALS: BMI 18.7
[2024-01-28 18:00] VITALS: BP 160/69; PULSE 87; RESP 16; TEMP 36.7; O2SAT 99
[2024-01-29 06:00] VITALS: BP 150/61; PULSE 98; RESP 18; TEMP 36.8; O2SAT 100
--- NOTE | 2024-01-29 12:34 | HO.PSYCHPN ---
Subjective Subjective Date of Service: 01/29/24 Reason For Visit: inability to care for self Subjective Notes: Conditional Voluntary Interim History: The nursing staff reported the patient had been flat, she met her family. The healthcare social worker reported the power of aged or disabled carer was done by our attorneys and the possible discharge will be next week at our [facility] care facility. She is gentle but psychotic responding to internal stimuli. She had been on compliant with Invega for the last 4 days. I discontinue it and started on Haldol 1 mg p.o. b.i.d. but she refused to take it. On interview the patient is pleasantly confused, psychotic but very easily redirectable. She doesn't want to take any medications. Mental Status Exam Mental Status Exam Patient Appearance: Appropriate Patient Orientation: Person Level of Consciousness: Awake Patient Behavior: Guarded and Passive Mood Description: Calm Affect Description: Constricted Patient Cognition Impaired: Yes Ability to Follow Directions: Good Speech Pattern: Clear Delusions: Ideas of Reference Thought Process: Distracted and Slowed Thinking Thought Content: positive for [place] and positive for Poverty of Content Judgement: Fair Diagnostics Vital Signs (24Hr): Vital Signs - 24 hr 01/28/24 18:00 01/29/24 06:00 Temperature 98.1 F 98.2 F Pulse Rate 87 98 Respiratory Rate 16 18 Blood Pressure 160/69 H 150/61 H Pulse Oximetry 99 100 Oxygen Delivery Method Room Air Room Air BMI result Body Mass Index 18.7 Labs 12/31/23 06:38 Imaging Radiology Impressions: ITS Impressions Head CT 01/01/24 09:46 IMPRESSION: There are scattered chronic small vessel ischemic changes within the periventricular white matter. Otherwise unremarkable examination. No evidence of acute territorial infarct or hemorrhage. Medications Medications Current Medications Acetaminophen (Acetaminophen 325 Mg Tablet) 650 mg PO Q6H PRN PRN Reason: Headache/Pain Mild Scale (1-3) Last Admin: 01/15/24 09:14 Dose: 650 mg Al Hydroxide/Mg Hydroxide (Magnesium Hydrox/Alum Hydrox 30 Ml Oral.Susp) 30 ml PO Q6H PRN PRN Reason: Heartburn/Nausea Famotidine (Famotidine 20 Mg Tablet) 20 mg PO BEDTIME [facility] Last Admin: 01/28/24 21:58 Dose: Not Given Haloperidol (Haloperidol 1 Mg Tablet) 1 mg PO BID [facility] Last Admin: 01/29/24 09:20 Dose: Not Given Hydroxyzine HCl (Hydroxyzine Hcl 25 Mg Tablet) 25 mg PO Q6H PRN PRN Reason: Anxiety Last Admin: 01/24/24 21:11 Dose: 25 mg Magnesium Hydroxide (Milk Of Magnesia 30 Ml Oral.Susp) 30 ml PO DAILY PRN PRN Reason: Constipation Trazodone HCl (Trazodone Hcl 50 Mg Tablet) 50 mg PO BEDTIME PRN PRN Reason: Insomnia Allergies Allergies Allergy/AdvReac Type Severity Reaction Status Date / Time No Known Allergies Allergy Verified 12/31/23 00:14 Assessment & Plan Assessment & Plan (1) Major neurocognitive disorder: Status: Acute Code(s): F03.90 - Unspecified dementia, unspecified severity, without behavioral disturbance, psychotic disturbance, mood disturbance, and anxiety (2) Schizoaffective disorder: Status: Acute Code(s): F25.9 - Schizoaffective disorder, unspecified Assessment and Plan: with primarily erotomatic delusions (she does reports hearing voices) Plan Pt is a 78-year-old female with a PMH significant for?osteoporosis, depression, and schizophrenia who is admitted to [facility] for increasing anxiety and nervousness. y Plan 01/04/continue tx plan 01/05. continue tx. 01/06 continue tx. will switch to risperidone to target AH. 0.5mg po BID. 01/07 continue tx. 01/08: stable. continue current mgmt. 01/09: feeling slowed down, which may indicate progress in getting mood disorder under control. appears well. continue current mgmt. 01/10 continue tx. 01/11 continue tx. 01/12 continue tx 01/13 may increase risperidone to 0.5mg po daily and 1mg po qhs- monitor orth hotn 01/15 Patient pleasant on approach. Said she had a toothache but that Tylenol has cleared up. Restaurant Attendant and nurse looked where she indicated to take was, left upper molar and no signs of abscess. Patient did not take Risperdal this morning. On inquiry she said she heard on the radio that there was a Ban on all Risperdal. However administrative underwriter discussed this with her and reassured her that there is no Ban and patient thus said she would resume taking the medication. 01/17 continue current medications. may discuss alternative 3/12 low dose haldol added 01/19 pt agreed to restart risperidone as voices were better controlled with this medication. 01/20 continue tx. 01/21 continue tx. 01/23/2024: Continue current regimen and plans 01/24/2024: Continue current regimen and plans 01/24 switch risperidone to paliperidone 01/25 continue tx. 01/26 continue tx. 01/27 continue tx. 01/28 discontinue Invega start Haldol 1 mg p.o. b.i.d. Reason for continued inpatient stay Substantial Risk for: inability to function, rapid decompensation and med/psych decompensation Time Spent With Patient Time: Total time managing care of this patient today _20___ minutes.
[2024-01-29 18:00] VITALS: BP 146/65; PULSE 112; RESP 18; TEMP 36.4; O2SAT 97
[2024-01-30 08:01] VITALS: BP 147/65; PULSE 97; RESP 16; TEMP 36.6; O2SAT 96
--- NOTE | 2024-01-30 10:11 | P.PNPSI_ITS ---
Subjective Subjective Date of Service: 01/30/24 Reason For Visit: inability to care for self Interim History: Patient has generally been calm she continues to refuse prescribed medication psychotic but not overly agitated discharge plan reportedly in place Mental Status Exam Mental Status Exam Patient Appearance: Appropriate Patient Orientation: Person Level of Consciousness: Awake Patient Behavior: Cooperative and Passive Mood Description: Calm and Appropriate Affect Description: Constricted Patient Cognition Impaired: Yes Ability to Follow Directions: Good Speech Pattern: Clear Memory Description: Episodic Impaired Delusions: Ideas of Reference Thought Process: Distracted and Slowed Thinking Thought Content: positive for [place] and positive for Poverty of Content Judgement: Fair Judgement and Insight: Impaired judgment insight refusing medication Diagnostics Vital Signs (24Hr): Vital Signs - 24 hr 01/29/24 18:00 Temperature 97.6 F Pulse Rate 112 H Respiratory Rate 18 Blood Pressure 146/65 H Pulse Oximetry 97 Oxygen Delivery Method Room Air BMI result Body Mass Index 18.7 Labs 12/31/23 06:38 Imaging Radiology Impressions: ITS Impressions Head CT 01/01/24 09:46 IMPRESSION: There are scattered chronic small vessel ischemic changes within the periventricular white matter. Otherwise unremarkable examination. No evidence of acute territorial infarct or hemorrhage. Medications Medications Current Medications Acetaminophen (Acetaminophen 325 Mg Tablet) 650 mg PO Q6H PRN PRN Reason: Headache/Pain Mild Scale (1-3) Last Admin: 01/15/24 09:14 Dose: 650 mg Al Hydroxide/Mg Hydroxide (Magnesium Hydrox/Alum Hydrox 30 Ml Oral.Susp) 30 ml PO Q6H PRN PRN Reason: Heartburn/Nausea Famotidine (Famotidine 20 Mg Tablet) 20 mg PO BEDTIME [facility] Last Admin: 01/29/24 21:10 Dose: Not Given Haloperidol (Haloperidol 1 Mg Tablet) 1 mg PO BID [facility] Last Admin: 01/30/24 08:11 Dose: Not Given Hydroxyzine HCl (Hydroxyzine Hcl 25 Mg Tablet) 25 mg PO Q6H PRN PRN Reason: Anxiety Last Admin: 01/24/24 21:11 Dose: 25 mg Magnesium Hydroxide (Milk Of Magnesia 30 Ml Oral.Susp) 30 ml PO DAILY PRN PRN Reason: Constipation Trazodone HCl (Trazodone Hcl 50 Mg Tablet) 50 mg PO BEDTIME PRN PRN Reason: Insomnia Allergies Allergies Allergy/AdvReac Type Severity Reaction Status Date / Time No Known Allergies Allergy Verified 12/31/23 00:14 Assessment & Plan Assessment & Plan (1) Major neurocognitive disorder: Status: Acute Code(s): F03.90 - Unspecified dementia, unspecified severity, without behavioral disturbance, psychotic disturbance, mood disturbance, and anxiety (2) Schizoaffective disorder: Status: Acute Code(s): F25.9 - Schizoaffective disorder, unspecified Assessment and Plan: with primarily erotomatic delusions (she does reports hearing voices) Plan Pt is a 78-year-old female with a PMH significant for?osteoporosis, depression, and schizophrenia who is admitted to [facility] for increasing anxiety and nervousness. y Plan 01/04/continue tx plan 01/05. continue tx. 01/06 continue tx. will switch to risperidone to target AH. 0.5mg po BID. 01/07 continue tx. 01/08: stable. continue current mgmt. 01/09: feeling slowed down, which may indicate progress in getting mood disorder under control. appears well. continue current mgmt. 01/10 continue tx. 01/11 continue tx. 01/12 continue tx 01/13 may increase risperidone to 0.5mg po daily and 1mg po qhs- monitor orth hotn 01/15 Patient pleasant on approach. Said she had a toothache but that Tylenol has cleared up. Computer Hardware Developer and nurse looked where she indicated to take was, left upper molar and no signs of abscess. Patient did not take Risperdal this morning. On inquiry she said she heard on the radio that there was a Ban on all Risperdal. However travel writer discussed this with her and reassured her that there is no Ban and patient thus said she would resume taking the medication. 01/17 continue current medications. may discuss alternative 01/18 low dose haldol added 01/19 pt agreed to restart risperidone as voices were better controlled with this medication. 01/20 continue tx. 01/21 continue tx. 01/23/2024: Continue current regimen and plans 01/24/2024: Continue current regimen and plans 01/24 switch risperidone to paliperidone 01/25 continue tx. 01/26 continue tx. 01/27 continue tx. 01/28 discontinue Invega start Haldol 1 mg p.o. b.i.d. 01/30/2024 Continue plan of care encourage medication discharge planning Reason for continued inpatient stay Substantial Risk for: inability to function, rapid decompensation and med/psych decompensation Time Spent With Patient Time: Total time managing care of this patient today ____ minutes.
--- NOTE | 2024-01-30 11:12 | PC.NURSE ---
Anu Crocker; Dr. Herrmann notified.
[2024-01-30 18:00] VITALS: BP 129/56; PULSE 105; RESP 18; TEMP 36.2; O2SAT 96
[2024-01-30] MEDS: hydrOXYzine HCL 25 MG TABLET PO (21:19)
[2024-01-30] MEDS: HaloperidoL 1 MG TABLET PO (21:19)
[2024-01-30] MEDS: traZODone HCL 50 MG TABLET PO (21:19)
[2024-01-30] MEDS: Famotidine 20 MG TABLET PO (21:19)
[2024-01-31 07:29] VITALS: BP 114/55; PULSE 103; RESP 18; TEMP 36.2; O2SAT 94
--- NOTE | 2024-01-31 10:27 | P.PNPSI_ITS ---
Subjective Subjective Date of Service: 01/31/24 Reason For Visit: inability to care for self Interim History: Patient was somewhat anxious but cooperative she is reported potential discharge date this week she has continued to refuse Haldol Medication Compliance: No Mental Status Exam Mental Status Exam Patient Appearance: Well Grooomed and Appropriate Patient Orientation: Person and Situation Level of Consciousness: Awake and Appropriate Patient Behavior: Guarded and Passive Mood Description: Withdrawn Affect Description: Constricted Patient Cognition Impaired: Yes Ability to Follow Directions: Good Speech Pattern: Clear Diagnostics Vital Signs (24Hr): Vital Signs - 24 hr 01/30/24 18:00 01/31/24 07:29 Temperature 97.1 F 97.1 F Pulse Rate 105 H 103 H Respiratory Rate 18 18 Blood Pressure 129/56 L 114/55 L Pulse Oximetry 96 94 Oxygen Delivery Method Room Air Room Air BMI result Body Mass Index 18.7 Labs 12/31/23 06:38 Imaging Radiology Impressions: ITS Impressions Head CT 01/01/24 09:46 IMPRESSION: There are scattered chronic small vessel ischemic changes within the periventricular white matter. Otherwise unremarkable examination. No evidence of acute territorial infarct or hemorrhage. Medications Medications Current Medications Acetaminophen (Acetaminophen 325 Mg Tablet) 650 mg PO Q6H PRN PRN Reason: Headache/Pain Mild Scale (1-3) Last Admin: 01/15/24 09:14 Dose: 650 mg Al Hydroxide/Mg Hydroxide (Magnesium Hydrox/Alum Hydrox 30 Ml Oral.Susp) 30 ml PO Q6H PRN PRN Reason: Heartburn/Nausea Famotidine (Famotidine 20 Mg Tablet) 20 mg PO BEDTIME [facility] Last Admin: 01/30/24 21:19 Dose: 20 mg Haloperidol (Haloperidol 1 Mg Tablet) 1 mg PO BID [facility] Last Admin: 01/31/24 08:41 Dose: Not Given Hydroxyzine HCl (Hydroxyzine Hcl 25 Mg Tablet) 25 mg PO Q6H PRN PRN Reason: Anxiety Last Admin: 01/30/24 21:19 Dose: 25 mg Magnesium Hydroxide (Milk Of Magnesia 30 Ml Oral.Susp) 30 ml PO DAILY PRN PRN Reason: Constipation Trazodone HCl (Trazodone Hcl 50 Mg Tablet) 50 mg PO BEDTIME PRN PRN Reason: Insomnia Last Admin: 01/30/24 21:19 Dose: 50 mg Allergies Allergies Allergy/AdvReac Type Severity Reaction Status Date / Time No Known Allergies Allergy Verified 12/31/23 00:14 Assessment & Plan Assessment & Plan (1) Major neurocognitive disorder: Status: Acute Code(s): F03.90 - Unspecified dementia, unspecified severity, without behavioral disturbance, psychotic disturbance, mood disturbance, and anxiety (2) Schizoaffective disorder: Status: Acute Code(s): F25.9 - Schizoaffective disorder, unspecified Assessment and Plan: with primarily erotomatic delusions (she does reports hearing voices) Plan Pt is a 78-year-old female with a PMH significant for?osteoporosis, depression, and schizophrenia who is admitted to [facility] for increasing anxiety and nervousness. y Plan 01/04/continue tx plan 01/05. continue tx. 01/06 continue tx. will switch to risperidone to target AH. 0.5mg po BID. 01/07 continue tx. 01/08: stable. continue current mgmt. 01/09: feeling slowed down, which may indicate progress in getting mood disorder under control. appears well. continue current mgmt. 01/10 continue tx. 01/11 continue tx. 01/12 continue tx 01/13 may increase risperidone to 0.5mg po daily and 1mg po qhs- monitor orth hotn 01/15 Patient pleasant on approach. Said she had a toothache but that Tylenol has cleared up. Rn Unit Manager and nurse looked where she indicated to take was, left upper molar and no signs of abscess. Patient did not take Risperdal this morning. On inquiry she said she heard on the radio that there was a Ban on all Risperdal. However commercial underwriter discussed this with her and reassured her that there is no Ban and patient thus said she would resume taking the medication. 01/17 continue current medications. may discuss alternative 01/18 low dose haldol added 01/19 pt agreed to restart risperidone as voices were better controlled with this medication. 01/20 continue tx. 01/21 continue tx. 01/23/2024: Continue current regimen and plans 01/24/2024: Continue current regimen and plans 01/24 switch risperidone to paliperidone 01/25 continue tx. 01/26 continue tx. 01/27 continue tx. 01/28 discontinue Invega start Haldol 1 mg p.o. b.i.d. 01/30/2024 Continue plan of care encourage medication discharge planning 01/31/2024 Patient refusing Haldol not behaviorally disruptive continue plan of care Reason for continued inpatient stay Substantial Risk for: inability to function and rapid decompensation Time Spent With Patient Time: Total time managing care of this patient today ____ minutes.
--- NOTE | 2024-01-31 11:18 | PC.NURSE ---
Kanika declined Haldol x 3 despite education from this telegraphic typewriter operator chief. MD Herrmann notified.
[2024-01-31] MEDS: Acetaminophen 325 MG TABLET 650 MG PO (15:20)
[2024-01-31 19:45] VITALS: BP 140/67; PULSE 89; RESP 16; TEMP 36.4; O2SAT 100
[2024-02-01 07:50] VITALS: BP 135/58; PULSE 93; RESP 18; TEMP 36.3; O2SAT 96
--- NOTE | 2024-02-01 09:09 | HO.PSYCHPN ---
Subjective Subjective Date of Service: 02/01/24 Reason For Visit: inability to care for self Subjective Notes: Conditional Voluntary Interim History: pt is visible on the unit, social and pleasant on approach. She continues to report delusions of having a relationship with Dr. Hernandez hears his voices along with other voices. She denies SI/HI. She declines medications as she states I'm well, I don't need them attention is worse with increase of psychosis and delusions, but no aggression towards self or others. Review of Systems Review of Systems Patient has no acute medical complaints at this time Yes all other systems are reviewed and are negative Mental Status Exam Mental Status Exam Patient Appearance: Well Grooomed and Appropriate Patient Orientation: Person and Situation Level of Consciousness: Awake and Appropriate Patient Behavior: Guarded and Passive Mood Description: Withdrawn Affect Description: Constricted Patient Cognition Impaired: Yes Ability to Follow Directions: Good Speech Pattern: Clear Memory Description: Episodic Impaired Diagnostics Vital Signs (24Hr): Vital Signs - 24 hr 01/31/24 19:45 02/01/24 07:50 Temperature 97.6 F 97.3 F Pulse Rate 89 93 Respiratory Rate 16 18 Blood Pressure 140/67 H 135/58 L Pulse Oximetry 100 96 Oxygen Delivery Method Room Air Room Air BMI result Body Mass Index 18.7 Labs 12/31/23 06:38 Imaging Radiology Impressions: ITS Impressions Head CT 01/01/24 09:46 IMPRESSION: There are scattered chronic small vessel ischemic changes within the periventricular white matter. Otherwise unremarkable examination. No evidence of acute territorial infarct or hemorrhage. Medications Medications Current Medications Acetaminophen (Acetaminophen 325 Mg Tablet) 650 mg PO Q6H PRN PRN Reason: Headache/Pain Mild Scale (1-3) Last Admin: 01/31/24 15:20 Dose: 650 mg Al Hydroxide/Mg Hydroxide (Magnesium Hydrox/Alum Hydrox 30 Ml Oral.Susp) 30 ml PO Q6H PRN PRN Reason: Heartburn/Nausea Famotidine (Famotidine 20 Mg Tablet) 20 mg PO BEDTIME JAMI Last Admin: 01/31/24 20:35 Dose: Not Given Haloperidol (Haloperidol 1 Mg Tablet) 1 mg PO BID JAMI Last Admin: 02/01/24 08:17 Dose: Not Given Hydroxyzine HCl (Hydroxyzine Hcl 25 Mg Tablet) 25 mg PO Q6H PRN PRN Reason: Anxiety Last Admin: 01/30/24 21:19 Dose: 25 mg Magnesium Hydroxide (Milk Of Magnesia 30 Ml Oral.Susp) 30 ml PO DAILY PRN PRN Reason: Constipation Trazodone HCl (Trazodone Hcl 50 Mg Tablet) 50 mg PO BEDTIME PRN PRN Reason: Insomnia Last Admin: 01/30/24 21:19 Dose: 50 mg Allergies Allergies Allergy/AdvReac Type Severity Reaction Status Date / Time No Known Allergies Allergy Verified 12/31/23 00:14 Assessment & Plan Assessment & Plan (1) Major neurocognitive disorder: Status: Acute Code(s): F03.90 - Unspecified dementia, unspecified severity, without behavioral disturbance, psychotic disturbance, mood disturbance, and anxiety (2) Schizoaffective disorder: Status: Acute Code(s): F25.9 - Schizoaffective disorder, unspecified Assessment and Plan: with primarily erotomatic delusions (she does reports hearing voices) Plan Pt is a 78-year-old female with a PMH significant for?osteoporosis, depression, and schizophrenia who is admitted to [facility] for increasing anxiety and nervousness. y Plan 01/04/continue tx plan 01/05. continue tx. 01/06 continue tx. will switch to risperidone to target AH. 0.5mg po BID. 01/07 continue tx. 01/08: stable. continue current mgmt. 01/09: feeling slowed down, which may indicate progress in getting mood disorder under control. appears well. continue current mgmt. 01/10 continue tx. 01/11 continue tx. 01/12 continue tx 01/13 may increase risperidone to 0.5mg po daily and 1mg po qhs- monitor orth hotn 01/15 Patient pleasant on approach. Said she had a toothache but that Tylenol has cleared up. Supply Chain Buyer and nurse looked where she indicated to take was, left upper molar and no signs of abscess. Patient did not take Risperdal this morning. On inquiry she said she heard on the radio that there was a Ban on all Risperdal. However development writer discussed this with her and reassured her that there is no Ban and patient thus said she would resume taking the medication. 01/17 continue current medications. may discuss alternative 01/18 low dose haldol added 01/19 pt agreed to restart risperidone as voices were better controlled with this medication. 01/20 continue tx. 01/21 continue tx. 01/23/2024: Continue current regimen and plans 01/24/2024: Continue current regimen and plans 01/24 switch risperidone to paliperidone 01/25 continue tx. 01/26 continue tx. 01/27 continue tx. 01/28 discontinue Invega start Haldol 1 mg p.o. b.i.d. 01/30/2024 Continue plan of care encourage medication discharge planning 01/31/2024 Patient refusing Haldol not behaviorally disruptive continue plan of care 01/31 continue tx. Reason for continued inpatient stay Substantial Risk for: inability to function Time Spent With Patient Time: Total time managing care of this patient today ____ minutes.
[2024-02-01 19:00] VITALS: BP 140/65; PULSE 85; RESP 18; TEMP 36.6; O2SAT 98
[2024-02-01] MEDS: Acetaminophen 325 MG TABLET 650 MG PO (20:05)
[2024-02-02 08:58] VITALS: BP 142/69; PULSE 102; RESP 18; TEMP 35.9; O2SAT 97
--- NOTE | 2024-02-02 16:26 | HO.PSYCHPN ---
Subjective Subjective Date of Service: 02/02/24 Reason For Visit: inability to care for self Subjective Notes: Conditional Voluntary Interim History: Last night, pt agitated stating that [place] was attacking the [place]. She reports today that that's done, not a problem anymore, thanks for asking. She denies SI/HI. She continues to hear voices of her newphew and who she believes is her boyfriend, Dr. Hernandez. No behavioral concerns. Review of Systems Review of Systems Patient has no acute medical complaints at this time Yes all other systems are reviewed and are negative Mental Status Exam Mental Status Exam Patient Appearance: Well Grooomed and Appropriate Patient Orientation: Person and Situation Level of Consciousness: Awake and Appropriate Patient Behavior: Guarded and Passive Mood Description: Withdrawn Affect Description: Constricted Patient Cognition Impaired: Yes Ability to Follow Directions: Good Speech Pattern: Clear Memory Description: Episodic Impaired Diagnostics Vital Signs (24Hr): Vital Signs - 24 hr 02/01/24 19:00 02/02/24 08:58 Temperature 98 F 96.6 F L Pulse Rate 85 102 H Respiratory Rate 18 18 Blood Pressure 140/65 H 142/69 H Pulse Oximetry 98 97 Oxygen Delivery Method Room Air Room Air BMI result Body Mass Index 18.7 Labs 12/31/23 06:38 Imaging Radiology Impressions: ITS Impressions Head CT 01/01/24 09:46 IMPRESSION: There are scattered chronic small vessel ischemic changes within the periventricular white matter. Otherwise unremarkable examination. No evidence of acute territorial infarct or hemorrhage. Medications Medications Current Medications Acetaminophen (Acetaminophen 325 Mg Tablet) 650 mg PO Q6H PRN PRN Reason: Headache/Pain Mild Scale (1-3) Last Admin: 02/01/24 20:05 Dose: 650 mg Al Hydroxide/Mg Hydroxide (Magnesium Hydrox/Alum Hydrox 30 Ml Oral.Susp) 30 ml PO Q6H PRN PRN Reason: Heartburn/Nausea Famotidine (Famotidine 20 Mg Tablet) 20 mg PO BEDTIME JAMI Last Admin: 02/01/24 20:05 Dose: Not Given Hydroxyzine HCl (Hydroxyzine Hcl 25 Mg Tablet) 25 mg PO Q6H PRN PRN Reason: Anxiety Last Admin: 01/30/24 21:19 Dose: 25 mg Magnesium Hydroxide (Milk Of Magnesia 30 Ml Oral.Susp) 30 ml PO DAILY PRN PRN Reason: Constipation Olanzapine (Olanzapine Odt 10 Mg Tab.Rapdis) 10 mg TRANSLINGU BEDTIME JAMI Trazodone HCl (Trazodone Hcl 50 Mg Tablet) 50 mg PO BEDTIME PRN PRN Reason: Insomnia Last Admin: 01/30/24 21:19 Dose: 50 mg Allergies Allergies Allergy/AdvReac Type Severity Reaction Status Date / Time No Known Allergies Allergy Verified 12/31/23 00:14 Assessment & Plan Assessment & Plan (1) Major neurocognitive disorder: Status: Acute Code(s): F03.90 - Unspecified dementia, unspecified severity, without behavioral disturbance, psychotic disturbance, mood disturbance, and anxiety (2) Schizoaffective disorder: Status: Acute Code(s): F25.9 - Schizoaffective disorder, unspecified Assessment and Plan: with primarily erotomatic delusions (she does reports hearing voices) Plan Pt is a 78-year-old female with a PMH significant for?osteoporosis, depression, and schizophrenia who is admitted to [facility] for increasing anxiety and nervousness. y Plan 01/04/continue tx plan 01/05. continue tx. 01/06 continue tx. will switch to risperidone to target AH. 0.5mg po BID. 01/07 continue tx. 01/08: stable. continue current mgmt. 01/09: feeling slowed down, which may indicate progress in getting mood disorder under control. appears well. continue current mgmt. 01/10 continue tx. 01/11 continue tx. 01/12 continue tx 01/13 may increase risperidone to 0.5mg po daily and 1mg po qhs- monitor orth hotn 01/15 Patient pleasant on approach. Said she had a toothache but that Tylenol has cleared up. Resort Host and nurse looked where she indicated to take was, left upper molar and no signs of abscess. Patient did not take Risperdal this morning. On inquiry she said she heard on the radio that there was a Ban on all Risperdal. However medical technical writer discussed this with her and reassured her that there is no Ban and patient thus said she would resume taking the medication. 01/17 continue current medications. may discuss alternative 01/18 low dose haldol added 01/19 pt agreed to restart risperidone as voices were better controlled with this medication. 01/20 continue tx. 01/21 continue tx. 01/23/2024: Continue current regimen and plans 01/24/2024: Continue current regimen and plans 01/24 switch risperidone to paliperidone 01/25 continue tx. 01/26 continue tx. 01/27 continue tx. 01/28 discontinue Invega start Haldol 1 mg p.o. b.i.d. 01/30/2024 Continue plan of care encourage medication discharge planning 01/31/2024 Patient refusing Haldol not behaviorally disruptive continue plan of care 01/31 continue tx. 02/01 continue tx. Reason for continued inpatient stay Substantial Risk for: inability to function Time Spent With Patient Time: Total time managing care of this patient today ____ minutes.
[2024-02-02 20:02] VITALS: BP 164/61; PULSE 97; RESP 16; TEMP 36.4; O2SAT 99
[2024-02-02] MEDS: OLANZapine ODT 10 MG TAB.RAPDIS TRANSLINGU (20:55)
[2024-02-02] MEDS: Famotidine 20 MG TABLET PO (20:56)
[2024-02-03 08:00] VITALS: BP 124/57; PULSE 99; RESP 16; TEMP 36; O2SAT 98
--- NOTE | 2024-02-03 12:24 | MHC.CLN ---
F/U DIET=REGULAR. RECEIVES ENSURE SUPPLEMENT BID (700 KCALS, 40 G PROTEIN). INTAKE USUALLY GOOD WITH MOST MEALS 50% OR GREATER. CONTINUE REGULAR DIET WITH SUPPLEMENT. ENCOURAGE PO ABLE. RD TO FOLLOW WEEKLY.
[2024-02-03 18:00] VITALS: BP 123/58; PULSE 100; RESP 18; TEMP 36.5; O2SAT 97
[2024-02-04 07:55] VITALS: BP 136/62; PULSE 98; RESP 18; TEMP 36.6; O2SAT 98
[2024-02-04 08:52] VITALS: BMI 18.7
--- NOTE | 2024-02-04 12:18 | HO.PSYCHPN ---
Subjective Subjective Date of Service: 02/04/24 Reason For Visit: inability to care for self Subjective Notes: Conditional Voluntary Interim History: Pt slept most of the night. She did take olanzapine at bedtime. She continues to talk to someone who is not there. She denies SI/HI. She is pleasant on approach and no behavioral disturbances are seen. Review of Systems Review of Systems Patient has no acute medical complaints at this time Yes all other systems are reviewed and are negative Mental Status Exam Mental Status Exam Patient Appearance: Well Grooomed and Appropriate Patient Orientation: Person and Situation Level of Consciousness: Awake and Appropriate Patient Behavior: Guarded and Passive Mood Description: Withdrawn Affect Description: Constricted Patient Cognition Impaired: Yes Ability to Follow Directions: Good Speech Pattern: Clear Memory Description: Episodic Impaired Diagnostics Vital Signs (24Hr): Vital Signs - 24 hr 02/03/24 18:00 Temperature 97.7 F Pulse Rate 100 Respiratory Rate 18 Blood Pressure 123/58 L Pulse Oximetry 97 Oxygen Delivery Method Room Air BMI result Body Mass Index 18.7 Labs 12/31/23 06:38 Imaging Radiology Impressions: ITS Impressions Head CT 01/01/24 09:46 IMPRESSION: There are scattered chronic small vessel ischemic changes within the periventricular white matter. Otherwise unremarkable examination. No evidence of acute territorial infarct or hemorrhage. Medications Medications Current Medications Acetaminophen (Acetaminophen 325 Mg Tablet) 650 mg PO Q6H PRN PRN Reason: Headache/Pain Mild Scale (1-3) Last Admin: 02/01/24 20:05 Dose: 650 mg Al Hydroxide/Mg Hydroxide (Magnesium Hydrox/Alum Hydrox 30 Ml Oral.Susp) 30 ml PO Q6H PRN PRN Reason: Heartburn/Nausea Famotidine (Famotidine 20 Mg Tablet) 20 mg PO BEDTIME JAMI Last Admin: 02/03/24 22:45 Dose: Not Given Hydroxyzine HCl (Hydroxyzine Hcl 25 Mg Tablet) 25 mg PO Q6H PRN PRN Reason: Anxiety Last Admin: 01/30/24 21:19 Dose: 25 mg Magnesium Hydroxide (Milk Of Magnesia 30 Ml Oral.Susp) 30 ml PO DAILY PRN PRN Reason: Constipation Olanzapine (Olanzapine Odt 10 Mg Tab.Rapdis) 10 mg TRANSLINGU BEDTIME JAMI Last Admin: 02/03/24 22:45 Dose: Not Given Trazodone HCl (Trazodone Hcl 50 Mg Tablet) 50 mg PO BEDTIME PRN PRN Reason: Insomnia Last Admin: 01/30/24 21:19 Dose: 50 mg Allergies Allergies Allergy/AdvReac Type Severity Reaction Status Date / Time No Known Allergies Allergy Verified 12/31/23 00:14 Assessment & Plan Assessment & Plan (1) Major neurocognitive disorder: Status: Acute Code(s): F03.90 - Unspecified dementia, unspecified severity, without behavioral disturbance, psychotic disturbance, mood disturbance, and anxiety (2) Schizoaffective disorder: Status: Acute Code(s): F25.9 - Schizoaffective disorder, unspecified Assessment and Plan: with primarily erotomatic delusions (she does reports hearing voices) Plan Pt is a 78-year-old female with a PMH significant for?osteoporosis, depression, and schizophrenia who is admitted to [facility] for increasing anxiety and nervousness. y Plan 01/04/continue tx plan 01/05. continue tx. 01/06 continue tx. will switch to risperidone to target AH. 0.5mg po BID. 01/07 continue tx. 01/08: stable. continue current mgmt. 01/09: feeling slowed down, which may indicate progress in getting mood disorder under control. appears well. continue current mgmt. 01/10 continue tx. 01/11 continue tx. 01/12 continue tx 01/13 may increase risperidone to 0.5mg po daily and 1mg po qhs- monitor orth hotn 01/15 Patient pleasant on approach. Said she had a toothache but that Tylenol has cleared up. Training Specialist and nurse looked where she indicated to take was, left upper molar and no signs of abscess. Patient did not take Risperdal this morning. On inquiry she said she heard on the radio that there was a Ban on all Risperdal. However group underwriter discussed this with her and reassured her that there is no Ban and patient thus said she would resume taking the medication. 01/17 continue current medications. may discuss alternative 01/18 low dose haldol added 01/19 pt agreed to restart risperidone as voices were better controlled with this medication. 01/20 continue tx. 01/21 continue tx. 01/23/2024: Continue current regimen and plans 01/24/2024: Continue current regimen and plans 01/24 switch risperidone to paliperidone 01/25 continue tx. 01/26 continue tx. 01/27 continue tx. 01/28 discontinue Invega start Haldol 1 mg p.o. b.i.d. 01/30/2024 Continue plan of care encourage medication discharge planning 01/31/2024 Patient refusing Haldol not behaviorally disruptive continue plan of care 01/31 continue tx. 02/01 continue tx. 02/02 continue tx. 02/03 continue tx. Reason for continued inpatient stay Substantial Risk for: inability to function Time Spent With Patient Time: Total time managing care of this patient today ____ minutes.
[2024-02-04 19:35] VITALS: BP 140/66; PULSE 93; RESP 18; TEMP 36.4; O2SAT 97
--- NOTE | 2024-02-05 10:14 | HO.PSYCHPN ---
Subjective Subjective Date of Service: 02/05/24 Reason For Visit: inability to care for self Subjective Notes: Conditional Voluntary Interim History: Pt slept most of the night. She declined olanzapine and pepcid last night. Pt visible on the unit. She reports she does not want to speak for too long as she wants to see if there is OT group. She denies SI/HI. continues to self dialogued but no aggression or behavioral disturbances. Review of Systems Review of Systems Patient has no acute medical complaints at this time Yes all other systems are reviewed and are negative Mental Status Exam Mental Status Exam Narrative: Appearance: wearing casual clothing. Fair hygiene, in NAD Behavior: cooperative Psychomotor: no agitation or retardation noted Speech: clear, normal rate, some delayed in response, spontaneous TP: tangential and disorganized at times TC: feeling well Mood: good Affect: congruent, and bright, non labile SI: denies HI: denies VH/AH: does not appear internally preoccupied Delusions: no overt delusions but clear confabulation Insight/judgment: impaired x 2 Memory/cog: alert, not oriented to place, situation, year (1024). severe impairments. Diagnostics Vital Signs (24Hr): Vital Signs - 24 hr 02/04/24 19:35 Temperature 97.6 F Pulse Rate 93 Respiratory Rate 18 Blood Pressure 140/66 H Pulse Oximetry 97 Oxygen Delivery Method Room Air BMI result Body Mass Index 18.7 Labs 12/31/23 06:38 Imaging Radiology Impressions: ITS Impressions Head CT 01/01/24 09:46 IMPRESSION: There are scattered chronic small vessel ischemic changes within the periventricular white matter. Otherwise unremarkable examination. No evidence of acute territorial infarct or hemorrhage. Medications Medications Current Medications Acetaminophen (Acetaminophen 325 Mg Tablet) 650 mg PO Q6H PRN PRN Reason: Headache/Pain Mild Scale (1-3) Last Admin: 02/01/24 20:05 Dose: 650 mg Al Hydroxide/Mg Hydroxide (Magnesium Hydrox/Alum Hydrox 30 Ml Oral.Susp) 30 ml PO Q6H PRN PRN Reason: Heartburn/Nausea Famotidine (Famotidine 20 Mg Tablet) 20 mg PO BEDTIME JAMI Last Admin: 02/04/24 20:44 Dose: Not Given Hydroxyzine HCl (Hydroxyzine Hcl 25 Mg Tablet) 25 mg PO Q6H PRN PRN Reason: Anxiety Last Admin: 01/30/24 21:19 Dose: 25 mg Magnesium Hydroxide (Milk Of Magnesia 30 Ml Oral.Susp) 30 ml PO DAILY PRN PRN Reason: Constipation Olanzapine (Olanzapine Odt 10 Mg Tab.Rapdis) 10 mg TRANSLINGU BEDTIME JAMI Last Admin: 02/04/24 20:44 Dose: Not Given Trazodone HCl (Trazodone Hcl 50 Mg Tablet) 50 mg PO BEDTIME PRN PRN Reason: Insomnia Last Admin: 01/30/24 21:19 Dose: 50 mg Allergies Allergies Allergy/AdvReac Type Severity Reaction Status Date / Time No Known Allergies Allergy Verified 12/31/23 00:14 Assessment & Plan Assessment & Plan (1) Major neurocognitive disorder: Status: Acute Code(s): F03.90 - Unspecified dementia, unspecified severity, without behavioral disturbance, psychotic disturbance, mood disturbance, and anxiety (2) Schizoaffective disorder: Status: Acute Code(s): F25.9 - Schizoaffective disorder, unspecified Assessment and Plan: with primarily erotomatic delusions (she does reports hearing voices) Plan Pt is a 78-year-old female with a PMH significant for?osteoporosis, depression, and schizophrenia who is admitted to [facility] for increasing anxiety and nervousness. y Plan 01/04/continue tx plan 01/05. continue tx. 01/06 continue tx. will switch to risperidone to target AH. 0.5mg po BID. 01/07 continue tx. 01/08: stable. continue current mgmt. 3/3: feeling slowed down, which may indicate progress in getting mood disorder under control. appears well. continue current mgmt. 01/10 continue tx. 01/11 continue tx. 01/12 continue tx 01/13 may increase risperidone to 0.5mg po daily and 1mg po qhs- monitor orth hotn 01/15 Patient pleasant on approach. Said she had a toothache but that Tylenol has cleared up. Lozenge Maker and nurse looked where she indicated to take was, left upper molar and no signs of abscess. Patient did not take Risperdal this morning. On inquiry she said she heard on the radio that there was a Ban on all Risperdal. However telegraphic typewriter repairer discussed this with her and reassured her that there is no Ban and patient thus said she would resume taking the medication. 01/17 continue current medications. may discuss alternative 01/18 low dose haldol added 01/19 pt agreed to restart risperidone as voices were better controlled with this medication. 01/20 continue tx. 01/21 continue tx. 01/23/2024: Continue current regimen and plans 01/24/2024: Continue current regimen and plans 01/24 switch risperidone to paliperidone 01/25 continue tx. 01/26 continue tx. 01/27 continue tx. 01/28 discontinue Invega start Haldol 1 mg p.o. b.i.d. 01/30/2024 Continue plan of care encourage medication discharge planning 01/31/2024 Patient refusing Haldol not behaviorally disruptive continue plan of care 01/31 continue tx. 02/01 continue tx. 02/02 continue tx. 02/03 continue tx. 02/04 continue tx. Reason for continued inpatient stay Substantial Risk for: inability to function Time Spent With Patient Time: Total time managing care of this patient today ____ minutes.
[2024-02-05 19:35] VITALS: BP 129/66; PULSE 91; RESP 18; TEMP 36.4; O2SAT 95
[2024-02-05] MEDS: OLANZapine ODT 10 MG TAB.RAPDIS TRANSLINGU (20:54)
[2024-02-05] MEDS: Famotidine 20 MG TABLET PO (20:54)
[2024-02-06 08:12] VITALS: BP 134/80; PULSE 101; RESP 17; TEMP 2.4; TEMP 36.4; O2SAT 97
--- NOTE | 2024-02-06 08:26 | HO.PSYCHPN ---
Subjective Subjective Date of Service: 02/06/24 Reason For Visit: inability to care for self Subjective Notes: Conditional Voluntary Interim History: The nursing staff reported the patient was out wants last night, she took medications with encouragement for p.r.n.. On interview the patient remains pleasantly confused, delusional but easily redirectable. Mental Status Exam Mental Status Exam Patient Appearance: Appropriate Patient Orientation: Person Level of Consciousness: Awake Patient Behavior: Guarded Mood Description: Calm and Withdrawn Affect Description: Constricted Patient Cognition Impaired: Yes Ability to Follow Directions: Good Speech Pattern: Clear Hallucinations: Auditory Delusions: Paranoid Ideation and Ideas of Reference Thought Process: Illogical, Distracted and Slowed Thinking Thought Content: positive for [place] and positive for Poverty of Content Judgement: Poor Diagnostics Vital Signs (24Hr): Vital Signs - 24 hr 02/05/24 19:35 02/06/24 08:12 Temperature 97.6 F 36.4 F L Pulse Rate 91 101 H Respiratory Rate 18 17 Blood Pressure 129/66 134/80 Pulse Oximetry 95 97 Oxygen Delivery Method Room Air Room Air BMI result Body Mass Index 18.7 Labs 12/31/23 06:38 Imaging Radiology Impressions: ITS Impressions Head CT 01/01/24 09:46 IMPRESSION: There are scattered chronic small vessel ischemic changes within the periventricular white matter. Otherwise unremarkable examination. No evidence of acute territorial infarct or hemorrhage. Medications Medications Current Medications Acetaminophen (Acetaminophen 325 Mg Tablet) 650 mg PO Q6H PRN PRN Reason: Headache/Pain Mild Scale (1-3) Last Admin: 02/01/24 20:05 Dose: 650 mg Al Hydroxide/Mg Hydroxide (Magnesium Hydrox/Alum Hydrox 30 Ml Oral.Susp) 30 ml PO Q6H PRN PRN Reason: Heartburn/Nausea Famotidine (Famotidine 20 Mg Tablet) 20 mg PO BEDTIME JAMI Last Admin: 02/05/24 20:54 Dose: 20 mg Hydroxyzine HCl (Hydroxyzine Hcl 25 Mg Tablet) 25 mg PO Q6H PRN PRN Reason: Anxiety Last Admin: 01/30/24 21:19 Dose: 25 mg Magnesium Hydroxide (Milk Of Magnesia 30 Ml Oral.Susp) 30 ml PO DAILY PRN PRN Reason: Constipation Olanzapine (Olanzapine Odt 10 Mg Tab.Rapdis) 10 mg TRANSLINGU BEDTIME JAMI Last Admin: 02/05/24 20:54 Dose: 10 mg Trazodone HCl (Trazodone Hcl 50 Mg Tablet) 50 mg PO BEDTIME PRN PRN Reason: Insomnia Last Admin: 01/30/24 21:19 Dose: 50 mg Allergies Allergies Allergy/AdvReac Type Severity Reaction Status Date / Time No Known Allergies Allergy Verified 12/31/23 00:14 Assessment & Plan Assessment & Plan (1) Major neurocognitive disorder: Status: Acute Code(s): F03.90 - Unspecified dementia, unspecified severity, without behavioral disturbance, psychotic disturbance, mood disturbance, and anxiety (2) Schizoaffective disorder: Status: Acute Code(s): F25.9 - Schizoaffective disorder, unspecified Assessment and Plan: with primarily erotomatic delusions (she does reports hearing voices) Plan Pt is a 78-year-old female with a PMH significant for?osteoporosis, depression, and schizophrenia who is admitted to [facility] for increasing anxiety and nervousness. y Plan 01/04/continue tx plan 01/05. continue tx. 01/06 continue tx. will switch to risperidone to target AH. 0.5mg po BID. 01/07 continue tx. 01/08: stable. continue current mgmt. 01/09: feeling slowed down, which may indicate progress in getting mood disorder under control. appears well. continue current mgmt. 01/10 continue tx. 01/11 continue tx. 01/12 continue tx 01/13 may increase risperidone to 0.5mg po daily and 1mg po qhs- monitor orth hotn 01/15 Patient pleasant on approach. Said she had a toothache but that Tylenol has cleared up. Heavy Media Operator and nurse looked where she indicated to take was, left upper molar and no signs of abscess. Patient did not take Risperdal this morning. On inquiry she said she heard on the radio that there was a Ban on all Risperdal. However communications writer discussed this with her and reassured her that there is no Ban and patient thus said she would resume taking the medication. 01/17 continue current medications. may discuss alternative 01/18 low dose haldol added 01/19 pt agreed to restart risperidone as voices were better controlled with this medication. 01/20 continue tx. 01/21 continue tx. 01/23/2024: Continue current regimen and plans 01/24/2024: Continue current regimen and plans 01/24 switch risperidone to paliperidone 01/25 continue tx. 01/26 continue tx. 01/27 continue tx. 01/28 discontinue Invega start Haldol 1 mg p.o. b.i.d. 01/30/2024 Continue plan of care encourage medication discharge planning 01/31/2024 Patient refusing Haldol not behaviorally disruptive continue plan of care 01/31 continue tx. 02/01 continue tx. 02/02 continue tx. 02/03 continue tx. 02/04 continue tx. 02/05 continue same treatment Reason for continued inpatient stay Substantial Risk for: inability to function, rapid decompensation and med/psych decompensation Time Spent With Patient Time: Total time managing care of this patient today __20__ minutes.
[2024-02-06 18:00] VITALS: BP 164/95; PULSE 90; RESP 16; TEMP 36.4; O2SAT 98
[2024-02-06] MEDS: Famotidine 20 MG TABLET PO (19:45)
[2024-02-06] MEDS: OLANZapine ODT 10 MG TAB.RAPDIS TRANSLINGU (19:45)
[2024-02-07 08:33] VITALS: BP 120/58; PULSE 77; TEMP 2.2; TEMP 36; O2SAT 96
--- NOTE | 2024-02-07 09:03 | P.PNPSI_ITS ---
Subjective Subjective Date of Service: 02/07/24 Reason For Visit: inability to care for self Subjective Notes: Conditional Voluntary Interim History: The nursing staff reported the patient remains with auditory hallucinations she took Zyprexa last night and she slept 6 hours. On interview the patient looks pleasantly confused, easily redirectable. Mental Status Exam Mental Status Exam Patient Appearance: Appropriate Patient Orientation: Person Level of Consciousness: Awake Patient Behavior: Guarded and Passive Mood Description: Calm Affect Description: Constricted Patient Cognition Impaired: Yes Ability to Follow Directions: Good Speech Pattern: Clear Hallucinations: Auditory Delusions: Paranoid Ideation and Ideas of Reference Thought Process: Distracted and Slowed Thinking Thought Content: positive for [place] and positive for Poverty of Content Judgement: Poor Diagnostics Vital Signs (24Hr): Vital Signs - 24 hr 02/06/24 18:00 Temperature 97.6 F Pulse Rate 90 Respiratory Rate 16 Blood Pressure 164/95 H Pulse Oximetry 98 Oxygen Delivery Method Room Air BMI result Body Mass Index 18.7 Labs 12/31/23 06:38 Imaging Radiology Impressions: ITS Impressions Head CT 01/01/24 09:46 IMPRESSION: There are scattered chronic small vessel ischemic changes within the periventricular white matter. Otherwise unremarkable examination. No evidence of acute territorial infarct or hemorrhage. Medications Medications Current Medications Acetaminophen (Acetaminophen 325 Mg Tablet) 650 mg PO Q6H PRN PRN Reason: Headache/Pain Mild Scale (1-3) Last Admin: 02/01/24 20:05 Dose: 650 mg Al Hydroxide/Mg Hydroxide (Magnesium Hydrox/Alum Hydrox 30 Ml Oral.Susp) 30 ml PO Q6H PRN PRN Reason: Heartburn/Nausea Famotidine (Famotidine 20 Mg Tablet) 20 mg PO BEDTIME JAMI Last Admin: 02/06/24 19:45 Dose: 20 mg Hydroxyzine HCl (Hydroxyzine Hcl 25 Mg Tablet) 25 mg PO Q6H PRN PRN Reason: Anxiety Last Admin: 01/30/24 21:19 Dose: 25 mg Magnesium Hydroxide (Milk Of Magnesia 30 Ml Oral.Susp) 30 ml PO DAILY PRN PRN Reason: Constipation Olanzapine (Olanzapine Odt 10 Mg Tab.Rapdis) 10 mg TRANSLINGU BEDTIME JAMI Last Admin: 02/06/24 19:45 Dose: 10 mg Trazodone HCl (Trazodone Hcl 50 Mg Tablet) 50 mg PO BEDTIME PRN PRN Reason: Insomnia Last Admin: 01/30/24 21:19 Dose: 50 mg Allergies Allergies Allergy/AdvReac Type Severity Reaction Status Date / Time No Known Allergies Allergy Verified 12/31/23 00:14 Assessment & Plan Assessment & Plan (1) Major neurocognitive disorder: Status: Acute Code(s): F03.90 - Unspecified dementia, unspecified severity, without behavioral disturbance, psychotic disturbance, mood disturbance, and anxiety (2) Schizoaffective disorder: Status: Acute Code(s): F25.9 - Schizoaffective disorder, unspecified Assessment and Plan: with primarily erotomatic delusions (she does reports hearing voices) Plan Pt is a 78-year-old female with a PMH significant for?osteoporosis, depression, and schizophrenia who is admitted to [facility] for increasing anxiety and nervousness. y Plan 01/04/continue tx plan 01/05. continue tx. 01/06 continue tx. will switch to risperidone to target AH. 0.5mg po BID. 01/07 continue tx. 01/08: stable. continue current mgmt. 01/09: feeling slowed down, which may indicate progress in getting mood disorder under control. appears well. continue current mgmt. 01/10 continue tx. 01/11 continue tx. 01/12 continue tx 01/13 may increase risperidone to 0.5mg po daily and 1mg po qhs- monitor orth hotn 01/15 Patient pleasant on approach. Said she had a toothache but that Tylenol has cleared up. Spray Painter Helper and nurse looked where she indicated to take was, left upper molar and no signs of abscess. Patient did not take Risperdal this morning. On inquiry she said she heard on the radio that there was a Ban on all Risperdal. However magnetic tape typewriter operator discussed this with her and reassured her that there is no Ban and patient thus said she would resume taking the medication. 01/17 continue current medications. may discuss alternative 01/18 low dose haldol added 01/19 pt agreed to restart risperidone as voices were better controlled with this medication. 01/20 continue tx. 01/21 continue tx. 01/23/2024: Continue current regimen and plans 01/24/2024: Continue current regimen and plans 01/24 switch risperidone to paliperidone 01/25 continue tx. 01/26 continue tx. 01/27 continue tx. 01/28 discontinue Invega start Haldol 1 mg p.o. b.i.d. 01/30/2024 Continue plan of care encourage medication discharge planning 01/31/2024 Patient refusing Haldol not behaviorally disruptive continue plan of care 01/31 continue tx. 02/01 continue tx. 02/02 continue tx. 02/03 continue tx. 02/04 continue tx. 02/05 continue same treatment 02/06 continue same treatment Reason for continued inpatient stay Substantial Risk for: inability to function, rapid decompensation and med/psych decompensation Time Spent With Patient Time: Total time managing care of this patient today __20__ minutes.
[2024-02-07 18:00] VITALS: BP 144/64; PULSE 97; RESP 18; TEMP 37; O2SAT 97
[2024-02-07] MEDS: OLANZapine ODT 10 MG TAB.RAPDIS TRANSLINGU (21:18)
[2024-02-07] MEDS: Famotidine 20 MG TABLET PO (21:18)
[2024-02-07] MEDS: traZODone HCL 50 MG TABLET PO (21:18)
[2024-02-07] MEDS: hydrOXYzine HCL 25 MG TABLET PO (21:18)
[2024-02-08 06:00] VITALS: BP 144/72; PULSE 92; RESP 18; O2SAT 98
--- NOTE | 2024-02-08 09:38 | P.PNPSI_ITS ---
Subjective Subjective Date of Service: 02/08/24 Reason For Visit: inability to care for self Subjective Notes: Conditional Voluntary Interim History: Pt slept through the night. Pt reports doing well. She reports not hearing Dr. Hernandez as much. She denies SI/HI. She has been visible and social with select peer but her attention is fair due hearing voics. Medication Compliance: Intermittent Side effects from medications: No Attending Groups: Intermittent Diagnostics Vital Signs (24Hr): Vital Signs - 24 hr 02/07/24 18:00 02/08/24 06:00 Temperature 98.6 F Pulse Rate 97 92 Respiratory Rate 18 18 Blood Pressure 144/64 H 144/72 H Pulse Oximetry 97 98 Oxygen Delivery Method Room Air Room Air BMI result Body Mass Index 18.7 Labs 12/31/23 06:38 Imaging Radiology Impressions: ITS Impressions Head CT 01/01/24 09:46 IMPRESSION: There are scattered chronic small vessel ischemic changes within the periventricular white matter. Otherwise unremarkable examination. No evidence of acute territorial infarct or hemorrhage. Medications Medications Current Medications Acetaminophen (Acetaminophen 325 Mg Tablet) 650 mg PO Q6H PRN PRN Reason: Headache/Pain Mild Scale (1-3) Last Admin: 02/01/24 20:05 Dose: 650 mg Al Hydroxide/Mg Hydroxide (Magnesium Hydrox/Alum Hydrox 30 Ml Oral.Susp) 30 ml PO Q6H PRN PRN Reason: Heartburn/Nausea Famotidine (Famotidine 20 Mg Tablet) 20 mg PO BEDTIME JAMI Last Admin: 02/07/24 21:18 Dose: 20 mg Hydroxyzine HCl (Hydroxyzine Hcl 25 Mg Tablet) 25 mg PO Q6H PRN PRN Reason: Anxiety Last Admin: 02/07/24 21:18 Dose: 25 mg Magnesium Hydroxide (Milk Of Magnesia 30 Ml Oral.Susp) 30 ml PO DAILY PRN PRN Reason: Constipation Olanzapine (Olanzapine Odt 10 Mg Tab.Rapdis) 10 mg TRANSLINGU BEDTIME JAMI Last Admin: 02/07/24 21:18 Dose: 10 mg Trazodone HCl (Trazodone Hcl 50 Mg Tablet) 50 mg PO BEDTIME PRN PRN Reason: Insomnia Last Admin: 02/07/24 21:18 Dose: 50 mg Allergies Allergies Allergy/AdvReac Type Severity Reaction Status Date / Time No Known Allergies Allergy Verified 12/31/23 00:14 Assessment & Plan Assessment & Plan (1) Major neurocognitive disorder: Status: Acute Code(s): F03.90 - Unspecified dementia, unspecified severity, without behavioral disturbance, psychotic disturbance, mood disturbance, and anxiety (2) Schizoaffective disorder: Status: Acute Code(s): F25.9 - Schizoaffective disorder, unspecified Assessment and Plan: with primarily erotomatic delusions (she does reports hearing voices) Plan Pt is a 78-year-old female with a PMH significant for?osteoporosis, depression, and schizophrenia who is admitted to [facility] for increasing anxiety and nervousness. y Plan 01/04/continue tx plan 01/05. continue tx. 01/06 continue tx. will switch to risperidone to target AH. 0.5mg po BID. 01/07 continue tx. 01/08: stable. continue current mgmt. 01/09: feeling slowed down, which may indicate progress in getting mood disorder under control. appears well. continue current mgmt. 01/10 continue tx. 01/11 continue tx. 01/12 continue tx 01/13 may increase risperidone to 0.5mg po daily and 1mg po qhs- monitor orth hotn 01/15 Patient pleasant on approach. Said she had a toothache but that Tylenol has cleared up. Early Childhood Associate Teacher and nurse looked where she indicated to take was, left upper molar and no signs of abscess. Patient did not take Risperdal this morning. On inquiry she said she heard on the radio that there was a Ban on all Risperdal. However account underwriter discussed this with her and reassured her that there is no Ban and patient thus said she would resume taking the medication. 01/17 continue current medications. may discuss alternative 01/18 low dose haldol added 01/19 pt agreed to restart risperidone as voices were better controlled with this medication. 01/20 continue tx. 01/21 continue tx. 01/23/2024: Continue current regimen and plans 01/24/2024: Continue current regimen and plans 01/24 switch risperidone to paliperidone 01/25 continue tx. 01/26 continue tx. 01/27 continue tx. 01/28 discontinue Invega start Haldol 1 mg p.o. b.i.d. 01/30/2024 Continue plan of care encourage medication discharge planning 01/31/2024 Patient refusing Haldol not behaviorally disruptive continue plan of care 01/31 continue tx. 02/01 continue tx. 02/02 continue tx. 02/03 continue tx. 02/04 continue tx. 02/05 continue same treatment 02/06 continue same treatment 02/07 continue tx. Reason for continued inpatient stay Substantial Risk for: inability to function Time Spent With Patient Time: Total time managing care of this patient today ____ minutes.
[2024-02-08 18:00] VITALS: BP 144/67; PULSE 96; RESP 18; TEMP 37.1; O2SAT 98
[2024-02-08] MEDS: Famotidine 20 MG TABLET PO (21:37)
[2024-02-08] MEDS: OLANZapine ODT 10 MG TAB.RAPDIS TRANSLINGU (21:37)
[2024-02-09 06:00] VITALS: BP 135/59; PULSE 100; RESP 16; TEMP 36.6; O2SAT 100
--- NOTE | 2024-02-09 09:00 | P.PNPSI_ITS ---
Subjective Subjective Date of Service: 02/09/24 Reason For Visit: inability to care for self Subjective Notes: Conditional Voluntary Interim History: Pt slept through the night. She took olanzapine last night. She reports she is no longer in a relationship with Dr. Hernandez. She did not clearly answer whether part of this idea that they are not together is because she is hearing less voices. She denies SI/HI. She reports eating well. She also reports she plans to go to groups. She states I am not dating anyone, I've done that, I was and had kids, I don't need a man! Medication Compliance: Intermittent Diagnostics Vital Signs (24Hr): Vital Signs - 24 hr 02/08/24 18:00 02/09/24 06:00 Temperature 98.8 F 97.8 F Pulse Rate 96 100 Respiratory Rate 18 16 Blood Pressure 144/67 H 135/59 L Pulse Oximetry 98 100 Oxygen Delivery Method Room Air Room Air BMI result Body Mass Index 18.7 Labs 12/31/23 06:38 Imaging Radiology Impressions: ITS Impressions Head CT 01/01/24 09:46 IMPRESSION: There are scattered chronic small vessel ischemic changes within the periventricular white matter. Otherwise unremarkable examination. No evidence of acute territorial infarct or hemorrhage. Medications Medications Current Medications Acetaminophen (Acetaminophen 325 Mg Tablet) 650 mg PO Q6H PRN PRN Reason: Headache/Pain Mild Scale (1-3) Last Admin: 02/01/24 20:05 Dose: 650 mg Al Hydroxide/Mg Hydroxide (Magnesium Hydrox/Alum Hydrox 30 Ml Oral.Susp) 30 ml PO Q6H PRN PRN Reason: Heartburn/Nausea Famotidine (Famotidine 20 Mg Tablet) 20 mg PO BEDTIME JAMI Last Admin: 02/08/24 21:37 Dose: 20 mg Hydroxyzine HCl (Hydroxyzine Hcl 25 Mg Tablet) 25 mg PO Q6H PRN PRN Reason: Anxiety Last Admin: 02/07/24 21:18 Dose: 25 mg Magnesium Hydroxide (Milk Of Magnesia 30 Ml Oral.Susp) 30 ml PO DAILY PRN PRN Reason: Constipation Olanzapine (Olanzapine Odt 10 Mg Tab.Rapdis) 10 mg TRANSLINGU BEDTIME JAMI Last Admin: 02/08/24 21:37 Dose: 10 mg Trazodone HCl (Trazodone Hcl 50 Mg Tablet) 50 mg PO BEDTIME PRN PRN Reason: Insomnia Last Admin: 02/07/24 21:18 Dose: 50 mg Allergies Allergies Allergy/AdvReac Type Severity Reaction Status Date / Time No Known Allergies Allergy Verified 12/31/23 00:14 Assessment & Plan Assessment & Plan (1) Major neurocognitive disorder: Status: Acute Code(s): F03.90 - Unspecified dementia, unspecified severity, without behavioral disturbance, psychotic disturbance, mood disturbance, and anxiety (2) Schizoaffective disorder: Status: Acute Code(s): F25.9 - Schizoaffective disorder, unspecified Assessment and Plan: with primarily erotomatic delusions (she does reports hearing voices) Plan Pt is a 78-year-old female with a PMH significant for?osteoporosis, depression, and schizophrenia who is admitted to [facility] for increasing anxiety and nervousness. y Plan 01/04/continue tx plan 01/05. continue tx. 01/06 continue tx. will switch to risperidone to target AH. 0.5mg po BID. 01/07 continue tx. 01/08: stable. continue current mgmt. 01/09: feeling slowed down, which may indicate progress in getting mood disorder under control. appears well. continue current mgmt. 01/10 continue tx. 01/11 continue tx. 01/12 continue tx 01/13 may increase risperidone to 0.5mg po daily and 1mg po qhs- monitor orth hotn 01/15 Patient pleasant on approach. Said she had a toothache but that Tylenol has cleared up. Systems Testing Laboratory Technician and nurse looked where she indicated to take was, left upper molar and no signs of abscess. Patient did not take Risperdal this morning. On inquiry she said she heard on the radio that there was a Ban on all Risperdal. However information writer discussed this with her and reassured her that there is no Ban and patient thus said she would resume taking the medication. 01/17 continue current medications. may discuss alternative 01/18 low dose haldol added 01/19 pt agreed to restart risperidone as voices were better controlled with this medication. 01/20 continue tx. 01/21 continue tx. 01/23/2024: Continue current regimen and plans 01/24/2024: Continue current regimen and plans 01/24 switch risperidone to paliperidone 01/25 continue tx. 01/26 continue tx. 01/27 continue tx. 01/28 discontinue Invega start Haldol 1 mg p.o. b.i.d. 01/30/2024 Continue plan of care encourage medication discharge planning 01/31/2024 Patient refusing Haldol not behaviorally disruptive continue plan of care 01/31 continue tx. 02/01 continue tx. 02/02 continue tx. 02/03 continue tx. 02/04 continue tx. 02/05 continue same treatment 02/06 continue same treatment 02/07 continue tx. 02/08 continue tx. Reason for continued inpatient stay Substantial Risk for: inability to function Time Spent With Patient Time: Total time managing care of this patient today ____ minutes.
[2024-02-09 20:00] VITALS: BP 159/71; PULSE 102; RESP 17; TEMP 35.8; O2SAT 96
--- NOTE | 2024-02-10 08:08 | HO.PSYCHPN ---
Subjective Subjective Date of Service: 02/10/24 Reason For Visit: inability to care for self Subjective Notes: Conditional Voluntary Interim History: Pt slept through the night. Pt declined medications last night. She reports not hearing from Dr. Hernandez for the past 4 days. She denies SI/HI. She appears internally preoccupied and her attention is poor. No behavioral concerns. Medication Compliance: Intermittent Review of Systems Review of Systems Patient has no acute medical complaints at this time Yes all other systems are reviewed and are negative Mental Status Exam Mental Status Exam Narrative: Appearance: wearing casual clothing. Fair hygiene, in NAD Behavior: cooperative Psychomotor: no agitation or retardation noted Speech: clear, normal rate, some delayed in response, spontaneous TP: tangential and disorganized at times TC: feeling well Mood: good Affect: congruent, and bright, non labile SI: denies HI: denies VH/AH: does not appear internally preoccupied Delusions: no overt delusions but clear confabulation Insight/judgment: impaired x 2 Memory/cog: alert, not oriented to place, situation, year (1024). severe impairments. Diagnostics Vital Signs (24Hr): Vital Signs - 24 hr 02/09/24 20:00 Temperature 96.4 F L Pulse Rate 102 H Respiratory Rate 17 Blood Pressure 159/71 H Pulse Oximetry 96 Oxygen Delivery Method Room Air BMI result Body Mass Index 18.7 Labs 12/31/23 06:38 Imaging Radiology Impressions: ITS Impressions Head CT 01/01/24 09:46 IMPRESSION: There are scattered chronic small vessel ischemic changes within the periventricular white matter. Otherwise unremarkable examination. No evidence of acute territorial infarct or hemorrhage. Medications Medications Current Medications Acetaminophen (Acetaminophen 325 Mg Tablet) 650 mg PO Q6H PRN PRN Reason: Headache/Pain Mild Scale (1-3) Last Admin: 02/01/24 20:05 Dose: 650 mg Al Hydroxide/Mg Hydroxide (Magnesium Hydrox/Alum Hydrox 30 Ml Oral.Susp) 30 ml PO Q6H PRN PRN Reason: Heartburn/Nausea Famotidine (Famotidine 20 Mg Tablet) 20 mg PO BEDTIME JAMI Last Admin: 02/09/24 21:43 Dose: Not Given Hydroxyzine HCl (Hydroxyzine Hcl 25 Mg Tablet) 25 mg PO Q6H PRN PRN Reason: Anxiety Last Admin: 02/07/24 21:18 Dose: 25 mg Magnesium Hydroxide (Milk Of Magnesia 30 Ml Oral.Susp) 30 ml PO DAILY PRN PRN Reason: Constipation Olanzapine (Olanzapine Odt 10 Mg Tab.Rapdis) 10 mg TRANSLINGU BEDTIME JAMI Last Admin: 02/09/24 21:43 Dose: Not Given Trazodone HCl (Trazodone Hcl 50 Mg Tablet) 50 mg PO BEDTIME PRN PRN Reason: Insomnia Last Admin: 02/07/24 21:18 Dose: 50 mg Allergies Allergies Allergy/AdvReac Type Severity Reaction Status Date / Time No Known Allergies Allergy Verified 12/31/23 00:14 Assessment & Plan Assessment & Plan (1) Major neurocognitive disorder: Status: Acute Code(s): F03.90 - Unspecified dementia, unspecified severity, without behavioral disturbance, psychotic disturbance, mood disturbance, and anxiety (2) Schizoaffective disorder: Status: Acute Code(s): F25.9 - Schizoaffective disorder, unspecified Assessment and Plan: with primarily erotomatic delusions (she does reports hearing voices) Plan Pt is a 78-year-old female with a PMH significant for?osteoporosis, depression, and schizophrenia who is admitted to [facility] for increasing anxiety and nervousness. y Plan 01/04/continue tx plan 01/05. continue tx. 01/06 continue tx. will switch to risperidone to target AH. 0.5mg po BID. 01/07 continue tx. 01/08: stable. continue current mgmt. 01/09: feeling slowed down, which may indicate progress in getting mood disorder under control. appears well. continue current mgmt. 01/10 continue tx. 01/11 continue tx. 01/12 continue tx 01/13 may increase risperidone to 0.5mg po daily and 1mg po qhs- monitor orth hotn 01/15 Patient pleasant on approach. Said she had a toothache but that Tylenol has cleared up. Billing Analyst and nurse looked where she indicated to take was, left upper molar and no signs of abscess. Patient did not take Risperdal this morning. On inquiry she said she heard on the radio that there was a Ban on all Risperdal. However typewriter aligner discussed this with her and reassured her that there is no Ban and patient thus said she would resume taking the medication. 01/17 continue current medications. may discuss alternative 01/18 low dose haldol added 01/19 pt agreed to restart risperidone as voices were better controlled with this medication. 01/20 continue tx. 01/21 continue tx. 01/23/2024: Continue current regimen and plans 01/24/2024: Continue current regimen and plans 01/24 switch risperidone to paliperidone 01/25 continue tx. 01/26 continue tx. 01/27 continue tx. 01/28 discontinue Invega start Haldol 1 mg p.o. b.i.d. 01/30/2024 Continue plan of care encourage medication discharge planning 01/31/2024 Patient refusing Haldol not behaviorally disruptive continue plan of care 01/31 continue tx. 02/01 continue tx. 02/02 continue tx. 02/03 continue tx. 02/04 continue tx. 02/05 continue same treatment 02/06 continue same treatment 02/07 continue tx. 02/08 continue tx. 02/09 continue tx. awaiting placement Reason for continued inpatient stay Substantial Risk for: inability to function Time Spent With Patient Time: Total time managing care of this patient today ____ minutes.
[2024-02-10 10:22] VITALS: BP 132/65; PULSE 102; TEMP 36.2; O2SAT 97
--- NOTE | 2024-02-10 13:04 | MHC.CLN ---
F/U DIET=REGULAR. RECEIVES ENSURE SUPPLEMENT BID (700 KCALS, 40 G PROTEIN). INTAKE VARIABLE. CONTINUE REGULAR DIET WITH SUPPLEMENT. ENCOURAGE PO ABLE. RD TO FOLLOW WEEKLY.
[2024-02-10 20:49] VITALS: BP 128/62; PULSE 81; RESP 16; TEMP 36.3; O2SAT 99
[2024-02-11 08:00] VITALS: BP 138/72; PULSE 83; RESP 18; TEMP 36.6; O2SAT 97
[2024-02-11] MEDS: hydrOXYzine HCL 25 MG TABLET PO (11:09)
--- NOTE | 2024-02-11 11:11 | PC.NURSE ---
Patient in group with increased anxiety, yelling out reported by OT. Patient agreed to take Atarax 25mg PO for increased anxiety, given at 1110.
--- NOTE | 2024-02-11 11:53 | HO.PSYCHPN ---
Subjective Subjective Date of Service: 02/11/24 Reason For Visit: inability to care for self Subjective Notes: Conditional Voluntary Interim History: Pt woke up several times last night. She declined antipsychotic- olanzapine. When asked about her sleep and fact that nurses noted she was up she states: they are lying She denies SI/HI. She is visible on the unit. No behavioral concerns. pending placement. Review of Systems Review of Systems Patient has no acute medical complaints at this time Yes all other systems are reviewed and are negative Mental Status Exam Mental Status Exam Narrative: Appearance: wearing casual clothing. Fair hygiene, in NAD Behavior: cooperative Psychomotor: no agitation or retardation noted Speech: clear, normal rate, some delayed in response, spontaneous TP: tangential and disorganized at times TC: feeling well Mood: good Affect: congruent, and bright, non labile SI: denies HI: denies VH/AH: does not appear internally preoccupied Delusions: no overt delusions but clear confabulation Insight/judgment: impaired x 2 Memory/cog: alert, not oriented to place, situation, year (1024). severe impairments. Diagnostics Vital Signs (24Hr): Vital Signs - 24 hr 02/10/24 20:49 02/11/24 08:00 Temperature 97.3 F 98 F Pulse Rate 81 83 Respiratory Rate 16 18 Blood Pressure 128/62 138/72 Pulse Oximetry 99 97 Oxygen Delivery Method Room Air Room Air BMI result Body Mass Index 18.7 Labs 12/31/23 06:38 Imaging Radiology Impressions: ITS Impressions Head CT 01/01/24 09:46 IMPRESSION: There are scattered chronic small vessel ischemic changes within the periventricular white matter. Otherwise unremarkable examination. No evidence of acute territorial infarct or hemorrhage. Medications Medications Current Medications Acetaminophen (Acetaminophen 325 Mg Tablet) 650 mg PO Q6H PRN PRN Reason: Headache/Pain Mild Scale (1-3) Last Admin: 02/01/24 20:05 Dose: 650 mg Al Hydroxide/Mg Hydroxide (Magnesium Hydrox/Alum Hydrox 30 Ml Oral.Susp) 30 ml PO Q6H PRN PRN Reason: Heartburn/Nausea Famotidine (Famotidine 20 Mg Tablet) 20 mg PO BEDTIME JAMI Last Admin: 02/10/24 20:55 Dose: Not Given Hydroxyzine HCl (Hydroxyzine Hcl 25 Mg Tablet) 25 mg PO Q6H PRN PRN Reason: Anxiety Last Admin: 02/11/24 11:09 Dose: 25 mg Magnesium Hydroxide (Milk Of Magnesia 30 Ml Oral.Susp) 30 ml PO DAILY PRN PRN Reason: Constipation Olanzapine (Olanzapine Odt 10 Mg Tab.Rapdis) 10 mg TRANSLINGU BEDTIME JAMI Last Admin: 02/10/24 20:55 Dose: Not Given Trazodone HCl (Trazodone Hcl 50 Mg Tablet) 50 mg PO BEDTIME PRN PRN Reason: Insomnia Last Admin: 02/07/24 21:18 Dose: 50 mg Allergies Allergies Allergy/AdvReac Type Severity Reaction Status Date / Time No Known Allergies Allergy Verified 12/31/23 00:14 Assessment & Plan Assessment & Plan (1) Major neurocognitive disorder: Status: Acute Code(s): F03.90 - Unspecified dementia, unspecified severity, without behavioral disturbance, psychotic disturbance, mood disturbance, and anxiety (2) Schizoaffective disorder: Status: Acute Code(s): F25.9 - Schizoaffective disorder, unspecified Assessment and Plan: with primarily erotomatic delusions (she does reports hearing voices) Plan Pt is a 78-year-old female with a PMH significant for?osteoporosis, depression, and schizophrenia who is admitted to [facility] for increasing anxiety and nervousness. y Plan 01/04/continue tx plan 01/05. continue tx. 01/06 continue tx. will switch to risperidone to target AH. 0.5mg po BID. 01/07 continue tx. 01/08: stable. continue current mgmt. 01/09: feeling slowed down, which may indicate progress in getting mood disorder under control. appears well. continue current mgmt. 01/10 continue tx. 01/11 continue tx. 01/12 continue tx 01/13 may increase risperidone to 0.5mg po daily and 1mg po qhs- monitor orth hotn 01/15 Patient pleasant on approach. Said she had a toothache but that Tylenol has cleared up. Paper Box Maker and nurse looked where she indicated to take was, left upper molar and no signs of abscess. Patient did not take Risperdal this morning. On inquiry she said she heard on the radio that there was a Ban on all Risperdal. However proposal writer discussed this with her and reassured her that there is no Ban and patient thus said she would resume taking the medication. 01/17 continue current medications. may discuss alternative 01/18 low dose haldol added 01/19 pt agreed to restart risperidone as voices were better controlled with this medication. 01/20 continue tx. 01/21 continue tx. 01/23/2024: Continue current regimen and plans 01/24/2024: Continue current regimen and plans 01/24 switch risperidone to paliperidone 01/25 continue tx. 01/26 continue tx. 01/27 continue tx. 01/28 discontinue Invega start Haldol 1 mg p.o. b.i.d. 01/30/2024 Continue plan of care encourage medication discharge planning 01/31/2024 Patient refusing Haldol not behaviorally disruptive continue plan of care 01/31 continue tx. 02/01 continue tx. 02/02 continue tx. 02/03 continue tx. 02/04 continue tx. 02/05 continue same treatment 02/06 continue same treatment 02/07 continue tx. 02/08 continue tx. 02/09 continue tx. awaiting placement 02/10 continue tx. Reason for continued inpatient stay Substantial Risk for: inability to function Time Spent With Patient Time: Total time managing care of this patient today ____ minutes.
[2024-02-11 18:00] VITALS: BP 135/61; PULSE 95; RESP 18; TEMP 36.6; O2SAT 100
[2024-02-11] MEDS: OLANZapine ODT 10 MG TAB.RAPDIS TRANSLINGU (20:52)
[2024-02-12 08:11] VITALS: BP 146/76; PULSE 92; RESP 18; TEMP 36.4; O2SAT 97
--- NOTE | 2024-02-12 14:54 | P.PNPSI_ITS ---
Subjective Subjective Date of Service: 02/12/24 Reason For Visit: inability to care for self Subjective Notes: Conditional Voluntary Interim History: The nursing staff reported the patient slept well she had been guarded she took p.r.n. Atarax. Yesterday while she was in the group with the occupational therapist she started yelling but she was redirectable. On interview the patient denies new symptoms looks pleasantly confused. Mental Status Exam Mental Status Exam Patient Appearance: Well Grooomed and Appropriate Patient Orientation: Person and Situation Level of Consciousness: Awake and Appropriate Patient Behavior: Guarded and Passive Mood Description: Withdrawn Affect Description: Constricted Patient Cognition Impaired: Yes Ability to Follow Directions: Good Speech Pattern: Clear Hallucinations: None Delusions: Paranoid Ideation and Ideas of Reference Thought Process: Distracted and Slowed Thinking Thought Content: positive for [place] and positive for Poverty of Content Judgement: Fair Diagnostics Vital Signs (24Hr): Vital Signs - 24 hr 02/11/24 18:00 02/12/24 08:11 Temperature 97.9 F 97.6 F Pulse Rate 95 92 Respiratory Rate 18 18 Blood Pressure 135/61 146/76 H Pulse Oximetry 100 97 Oxygen Delivery Method Room Air Room Air BMI result Body Mass Index 18.7 Labs 12/31/23 06:38 Imaging Radiology Impressions: ITS Impressions Head CT 01/01/24 09:46 IMPRESSION: There are scattered chronic small vessel ischemic changes within the periventricular white matter. Otherwise unremarkable examination. No evidence of acute territorial infarct or hemorrhage. Medications Medications Current Medications Acetaminophen (Acetaminophen 325 Mg Tablet) 650 mg PO Q6H PRN PRN Reason: Headache/Pain Mild Scale (1-3) Last Admin: 02/01/24 20:05 Dose: 650 mg Al Hydroxide/Mg Hydroxide (Magnesium Hydrox/Alum Hydrox 30 Ml Oral.Susp) 30 ml PO Q6H PRN PRN Reason: Heartburn/Nausea Famotidine (Famotidine 20 Mg Tablet) 20 mg PO BEDTIME JAMI Last Admin: 02/11/24 20:58 Dose: Not Given Hydroxyzine HCl (Hydroxyzine Hcl 25 Mg Tablet) 25 mg PO Q6H PRN PRN Reason: Anxiety Last Admin: 02/11/24 11:09 Dose: 25 mg Magnesium Hydroxide (Milk Of Magnesia 30 Ml Oral.Susp) 30 ml PO DAILY PRN PRN Reason: Constipation Olanzapine (Olanzapine Odt 10 Mg Tab.Rapdis) 10 mg TRANSLINGU BEDTIME JAMI Last Admin: 02/11/24 20:52 Dose: 10 mg Trazodone HCl (Trazodone Hcl 50 Mg Tablet) 50 mg PO BEDTIME PRN PRN Reason: Insomnia Last Admin: 02/07/24 21:18 Dose: 50 mg Allergies Allergies Allergy/AdvReac Type Severity Reaction Status Date / Time No Known Allergies Allergy Verified 12/31/23 00:14 Assessment & Plan Assessment & Plan (1) Major neurocognitive disorder: Status: Acute Code(s): F03.90 - Unspecified dementia, unspecified severity, without behavioral disturbance, psychotic disturbance, mood disturbance, and anxiety (2) Schizoaffective disorder: Status: Acute Code(s): F25.9 - Schizoaffective disorder, unspecified Assessment and Plan: with primarily erotomatic delusions (she does reports hearing voices) Plan Pt is a 78-year-old female with a PMH significant for?osteoporosis, depression, and schizophrenia who is admitted to [facility] for increasing anxiety and nervousness. y Plan 01/04/continue tx plan 01/05. continue tx. 01/06 continue tx. will switch to risperidone to target AH. 0.5mg po BID. 01/07 continue tx. 01/08: stable. continue current mgmt. 01/09: feeling slowed down, which may indicate progress in getting mood disorder under control. appears well. continue current mgmt. 01/10 continue tx. 01/11 continue tx. 01/12 continue tx 01/13 may increase risperidone to 0.5mg po daily and 1mg po qhs- monitor orth hotrosanna 01/15 Patient pleasant on approach. Said she had a toothache but that Tylenol has cleared up. Clinical Marketing Manager and nurse looked where she indicated to take was, left upper molar and no signs of abscess. Patient did not take Risperdal this morning. On inquiry she said she heard on the radio that there was a Ban on all Risperdal. However web content writer discussed this with her and reassured her that there is no Ban and patient thus said she would resume taking the medication. 01/17 continue current medications. may discuss alternative 01/18 low dose haldol added 01/19 pt agreed to restart risperidone as voices were better controlled with this medication. 01/20 continue tx. 01/21 continue tx. 01/23/2024: Continue current regimen and plans 01/24/2024: Continue current regimen and plans 01/24 switch risperidone to paliperidone 01/25 continue tx. 01/26 continue tx. 01/27 continue tx. 01/28 discontinue Invega start Haldol 1 mg p.o. b.i.d. 01/30/2024 Continue plan of care encourage medication discharge planning 01/31/2024 Patient refusing Haldol not behaviorally disruptive continue plan of care 01/31 continue tx. 02/01 continue tx. 02/02 continue tx. 02/03 continue tx. 02/04 continue tx. 02/05 continue same treatment 02/06 continue same treatment 02/07 continue tx. 02/08 continue tx. 02/09 continue tx. awaiting placement 02/10 continue tx. 02/11 continue treatment Reason for continued inpatient stay Substantial Risk for: inability to function, rapid decompensation and med/psych decompensation Time Spent With Patient Time: Total time managing care of this patient today __20__ minutes.
[2024-02-12 18:00] VITALS: BP 147/74; PULSE 97; RESP 18; TEMP 36.6; O2SAT 99
[2024-02-12] MEDS: hydrOXYzine HCL 25 MG TABLET PO (22:02)
[2024-02-12] MEDS: OLANZapine ODT 10 MG TAB.RAPDIS TRANSLINGU (22:02)
[2024-02-12] MEDS: traZODone HCL 50 MG TABLET PO (22:02)
[2024-02-12] MEDS: Famotidine 20 MG TABLET PO (22:02)
[2024-02-13 08:20] VITALS: BP 116/61; PULSE 112; RESP 16; TEMP 36.6; O2SAT 96
--- NOTE | 2024-02-13 09:24 | PC.NURSE ---
HR 112, Dr. Angulo notified.
--- NOTE | 2024-02-13 10:26 | HO.PSYCHPN ---
Subjective Subjective Date of Service: 02/13/24 Reason For Visit: inability to care for self Subjective Notes: Conditional Voluntary Interim History: met with patient. Discussed with Nursing. Overall pleasant. Accepting medications. Does appear to be hallucinating in her room ie talking to people that are not there. Overall denied any concerns regarding treatment. Reports that she is doing okay. Dose over appear slightly paranoid when concerned about her stomach getting upset at times and unsure if she is being given medications that have been banned . Reluctant to expand on same. Denied hallucinations, but has been internally preoccupied as per staff. Medication Compliance: Yes Side effects from medications: No Attending Groups: No Review of Systems Acute medical concerns: No Review of Systems Review of Systems Unremarkable Mental Status Exam Mental Status Exam Narrative: in room. Casually dressed. Fair hygiene. Pleasant. A little concrete. Denied depression. Denied SI or HI. Internally preoccupied as per staff. Some paranoia. Diagnostics Vital Signs (24Hr): Vital Signs - 24 hr 02/12/24 18:00 02/13/24 08:20 Temperature 97.9 F 97.8 F Pulse Rate 97 112 H Respiratory Rate 18 16 Blood Pressure 147/74 H 116/61 Pulse Oximetry 99 96 Oxygen Delivery Method Room Air Room Air BMI result Body Mass Index 18.7 Labs 12/31/23 06:38 Imaging Radiology Impressions: ITS Impressions Head CT 01/01/24 09:46 IMPRESSION: There are scattered chronic small vessel ischemic changes within the periventricular white matter. Otherwise unremarkable examination. No evidence of acute territorial infarct or hemorrhage. Medications Medications Current Medications Acetaminophen (Acetaminophen 325 Mg Tablet) 650 mg PO Q6H PRN PRN Reason: Headache/Pain Mild Scale (1-3) Last Admin: 02/01/24 20:05 Dose: 650 mg Al Hydroxide/Mg Hydroxide (Magnesium Hydrox/Alum Hydrox 30 Ml Oral.Susp) 30 ml PO Q6H PRN PRN Reason: Heartburn/Nausea Famotidine (Famotidine 20 Mg Tablet) 20 mg PO BEDTIME JAMI Last Admin: 02/12/24 22:02 Dose: 20 mg Hydroxyzine HCl (Hydroxyzine Hcl 25 Mg Tablet) 25 mg PO Q6H PRN PRN Reason: Anxiety Last Admin: 02/12/24 22:02 Dose: 25 mg Magnesium Hydroxide (Milk Of Magnesia 30 Ml Oral.Susp) 30 ml PO DAILY PRN PRN Reason: Constipation Olanzapine (Olanzapine Odt 10 Mg Tab.Rapdis) 10 mg TRANSLINGU BEDTIME JAMI Last Admin: 02/12/24 22:02 Dose: 10 mg Trazodone HCl (Trazodone Hcl 50 Mg Tablet) 50 mg PO BEDTIME PRN PRN Reason: Insomnia Last Admin: 02/12/24 22:02 Dose: 50 mg Allergies Allergies Allergy/AdvReac Type Severity Reaction Status Date / Time No Known Allergies Allergy Verified 12/31/23 00:14 Assessment & Plan Assessment & Plan (1) Major neurocognitive disorder: Status: Acute Code(s): F03.90 - Unspecified dementia, unspecified severity, without behavioral disturbance, psychotic disturbance, mood disturbance, and anxiety (2) Schizoaffective disorder: Status: Acute Code(s): F25.9 - Schizoaffective disorder, unspecified Assessment and Plan: with primarily erotomatic delusions (she does reports hearing voices) Plan Pt is a 78-year-old female with a PMH significant for?osteoporosis, depression, and schizophrenia who is admitted to [facility] for increasing anxiety and nervousness. y Plan 01/04/continue tx plan 01/05. continue tx. 01/06 continue tx. will switch to risperidone to target AH. 0.5mg po BID. 01/07 continue tx. 01/08: stable. continue current mgmt. 01/09: feeling slowed down, which may indicate progress in getting mood disorder under control. appears well. continue current mgmt. 01/10 continue tx. 01/11 continue tx. 01/12 continue tx 01/13 may increase risperidone to 0.5mg po daily and 1mg po qhs- monitor orth hotn 01/15 Patient pleasant on approach. Said she had a toothache but that Tylenol has cleared up. Stone Sandblaster and nurse looked where she indicated to take was, left upper molar and no signs of abscess. Patient did not take Risperdal this morning. On inquiry she said she heard on the radio that there was a Ban on all Risperdal. However copywriter discussed this with her and reassured her that there is no Ban and patient thus said she would resume taking the medication. 01/17 continue current medications. may discuss alternative 01/18 low dose haldol added 01/19 pt agreed to restart risperidone as voices were better controlled with this medication. 01/20 continue tx. 01/21 continue tx. 01/23/2024: Continue current regimen and plans 01/24/2024: Continue current regimen and plans 01/24 switch risperidone to paliperidone 01/25 continue tx. 01/26 continue tx. 01/27 continue tx. 01/28 discontinue Invega start Haldol 1 mg p.o. b.i.d. 01/30/2024 Continue plan of care encourage medication discharge planning 01/31/2024 Patient refusing Haldol not behaviorally disruptive continue plan of care 01/31 continue tx. 02/01 continue tx. 02/02 continue tx. 02/03 continue tx. 02/04 continue tx. 02/05 continue same treatment 02/06 continue same treatment 02/07 continue tx. 02/08 continue tx. 02/09 continue tx. awaiting placement 02/10 continue tx. 02/11 continue treatment 02/12: no changes Reason for continued inpatient stay Substantial Risk for: inability to function and rapid decompensation Time Spent With Patient Time: Total time managing care of this patient today ____ minutes.
[2024-02-13 10:33] VITALS: PULSE 106
[2024-02-13 18:00] VITALS: BP 143/75; PULSE 92; RESP 18; TEMP 36.6; O2SAT 100
[2024-02-13] MEDS: hydrOXYzine HCL 25 MG TABLET PO (20:37)
[2024-02-13] MEDS: OLANZapine ODT 10 MG TAB.RAPDIS TRANSLINGU (20:37)
[2024-02-13] MEDS: Famotidine 20 MG TABLET PO (20:37)
[2024-02-13] MEDS: traZODone HCL 50 MG TABLET PO (20:38)
[2024-02-14 08:28] VITALS: BP 143/63; PULSE 88; RESP 18; TEMP 36.5; O2SAT 96
--- NOTE | 2024-02-14 11:02 | P.PNPSI_ITS ---
Subjective Subjective Date of Service: 02/14/24 Reason For Visit: inability to care for self Interim History: met with patient. Discussed with Nursing. Overall pleasant and intermittent hallucinations. Denied any concerns regarding treatment. Reports that she is doing okay. Denied depression. Denied med concerns today Medication Compliance: Yes Side effects from medications: No Attending Groups: Intermittent Review of Systems Acute medical concerns: No Review of Systems Review of Systems Unremarkable Mental Status Exam Mental Status Exam Narrative: in room. Casually dressed. Fair hygiene. Pleasant. [place]. Denied depression. Denied SI or HI. Internally preoccupied as per staff. Some paranoia. Diagnostics Vital Signs (24Hr): Vital Signs - 24 hr 02/13/24 18:00 02/14/24 08:28 Temperature 98 F 97.7 F Pulse Rate 92 88 Respiratory Rate 18 18 Blood Pressure 143/75 H 143/63 H Pulse Oximetry 100 96 Oxygen Delivery Method Room Air Room Air BMI result Body Mass Index 18.7 Labs 12/31/23 06:38 Imaging Radiology Impressions: ITS Impressions Head CT 01/01/24 09:46 IMPRESSION: There are scattered chronic small vessel ischemic changes within the periventricular white matter. Otherwise unremarkable examination. No evidence of acute territorial infarct or hemorrhage. Medications Medications Current Medications Acetaminophen (Acetaminophen 325 Mg Tablet) 650 mg PO Q6H PRN PRN Reason: Headache/Pain Mild Scale (1-3) Last Admin: 02/01/24 20:05 Dose: 650 mg Al Hydroxide/Mg Hydroxide (Magnesium Hydrox/Alum Hydrox 30 Ml Oral.Susp) 30 ml PO Q6H PRN PRN Reason: Heartburn/Nausea Famotidine (Famotidine 20 Mg Tablet) 20 mg PO BEDTIME JAMI Last Admin: 02/13/24 20:37 Dose: 20 mg Hydroxyzine HCl (Hydroxyzine Hcl 25 Mg Tablet) 25 mg PO Q6H PRN PRN Reason: Anxiety Last Admin: 02/13/24 20:37 Dose: 25 mg Magnesium Hydroxide (Milk Of Magnesia 30 Ml Oral.Susp) 30 ml PO DAILY PRN PRN Reason: Constipation Olanzapine (Olanzapine Odt 10 Mg Tab.Rapdis) 10 mg TRANSLINGU BEDTIME JAMI Last Admin: 02/13/24 20:37 Dose: 10 mg Trazodone HCl (Trazodone Hcl 50 Mg Tablet) 50 mg PO BEDTIME PRN PRN Reason: Insomnia Last Admin: 02/13/24 20:38 Dose: 50 mg Allergies Allergies Allergy/AdvReac Type Severity Reaction Status Date / Time No Known Allergies Allergy Verified 12/31/23 00:14 Assessment & Plan Assessment & Plan (1) Major neurocognitive disorder: Status: Acute Code(s): F03.90 - Unspecified dementia, unspecified severity, without behavioral disturbance, psychotic disturbance, mood disturbance, and anxiety (2) Schizoaffective disorder: Status: Acute Code(s): F25.9 - Schizoaffective disorder, unspecified Assessment and Plan: with primarily erotomatic delusions (she does reports hearing voices) Plan Pt is a 78-year-old female with a PMH significant for?osteoporosis, depression, and schizophrenia who is admitted to [facility] for increasing anxiety and nervousness. y Plan 01/04/continue tx plan 01/05. continue tx. 01/06 continue tx. will switch to risperidone to target AH. 0.5mg po BID. 01/07 continue tx. 01/08: stable. continue current mgmt. 01/09: feeling slowed down, which may indicate progress in getting mood disorder under control. appears well. continue current mgmt. 01/10 continue tx. 01/11 continue tx. 01/12 continue tx 01/13 may increase risperidone to 0.5mg po daily and 1mg po qhs- monitor orth hotn 01/15 Patient pleasant on approach. Said she had a toothache but that Tylenol has cleared up. Campaign Marketing Specialist and nurse looked where she indicated to take was, left upper molar and no signs of abscess. Patient did not take Risperdal this morning. On inquiry she said she heard on the radio that there was a Ban on all Risperdal. However curriculum writer discussed this with her and reassured her that there is no Ban and patient thus said she would resume taking the medication. 01/17 continue current medications. may discuss alternative 01/18 low dose haldol added 01/19 pt agreed to restart risperidone as voices were better controlled with this medication. 01/20 continue tx. 01/21 continue tx. 01/23/2024: Continue current regimen and plans 01/24/2024: Continue current regimen and plans 01/24 switch risperidone to paliperidone 01/25 continue tx. 01/26 continue tx. 01/27 continue tx. 01/28 discontinue Invega start Haldol 1 mg p.o. b.i.d. 01/30/2024 Continue plan of care encourage medication discharge planning 01/31/2024 Patient refusing Haldol not behaviorally disruptive continue plan of care 01/31 continue tx. 02/01 continue tx. 02/02 continue tx. 02/03 continue tx. 02/04 continue tx. 02/05 continue same treatment 02/06 continue same treatment 02/07 continue tx. 02/08 continue tx. 02/09 continue tx. awaiting placement 02/10 continue tx. 02/11 continue treatment 02/12: no changes 02/13: no changes Reason for continued inpatient stay Substantial Risk for: inability to function Time Spent With Patient Time: Total time managing care of this patient today ____ minutes.
[2024-02-14 19:50] VITALS: BP 133/67; PULSE 87; RESP 18; TEMP 36.8; O2SAT 98
[2024-02-14] MEDS: Famotidine 20 MG TABLET PO (20:59)
[2024-02-14] MEDS: OLANZapine ODT 10 MG TAB.RAPDIS TRANSLINGU (20:59)
[2024-02-15 07:45] VITALS: BP 130/57; PULSE 90; RESP 18; TEMP 36.6; O2SAT 96
--- NOTE | 2024-02-15 12:31 | P.PNPSI_ITS ---
Subjective Subjective Date of Service: 02/15/24 Reason For Visit: inability to care for self Subjective Notes: Conditional Voluntary Interim History: The nursing staff reported the patient had been suspicious, she slept and she had been compliant with her medications. The occupational therapist reported that she had not been attending to any groups she had been paranoid. On interview the patient denies new symptoms pleasantly confused, waiting for placement. Mental Status Exam Mental Status Exam Patient Appearance: Appropriate Patient Orientation: Person and Situation Level of Consciousness: Awake and Appropriate Patient Behavior: Guarded and Passive Mood Description: Withdrawn Affect Description: Constricted Patient Cognition Impaired: Yes Ability to Follow Directions: Good Speech Pattern: Clear Hallucinations: Auditory Delusions: Paranoid Ideation and Ideas of Reference Thought Process: Distracted and Slowed Thinking Thought Content: positive for [place] and positive for Poverty of Content Judgement: Fair Diagnostics Vital Signs (24Hr): Vital Signs - 24 hr 02/14/24 19:50 02/15/24 07:45 Temperature 98.3 F 97.9 F Pulse Rate 87 90 Respiratory Rate 18 18 Blood Pressure 133/67 130/57 L Pulse Oximetry 98 96 Oxygen Delivery Method Room Air Room Air BMI result Body Mass Index 18.7 Labs 12/31/23 06:38 Imaging Radiology Impressions: ITS Impressions Head CT 01/01/24 09:46 IMPRESSION: There are scattered chronic small vessel ischemic changes within the periventricular white matter. Otherwise unremarkable examination. No evidence of acute territorial infarct or hemorrhage. Medications Medications Current Medications Acetaminophen (Acetaminophen 325 Mg Tablet) 650 mg PO Q6H PRN PRN Reason: Headache/Pain Mild Scale (1-3) Last Admin: 02/01/24 20:05 Dose: 650 mg Al Hydroxide/Mg Hydroxide (Magnesium Hydrox/Alum Hydrox 30 Ml Oral.Susp) 30 ml PO Q6H PRN PRN Reason: Heartburn/Nausea Famotidine (Famotidine 20 Mg Tablet) 20 mg PO BEDTIME JAMI Last Admin: 02/14/24 20:59 Dose: 20 mg Hydroxyzine HCl (Hydroxyzine Hcl 25 Mg Tablet) 25 mg PO Q6H PRN PRN Reason: Anxiety Last Admin: 02/13/24 20:37 Dose: 25 mg Magnesium Hydroxide (Milk Of Magnesia 30 Ml Oral.Susp) 30 ml PO DAILY PRN PRN Reason: Constipation Olanzapine (Olanzapine Odt 10 Mg Tab.Rapdis) 10 mg TRANSLINGU BEDTIME JAMI Last Admin: 02/14/24 20:59 Dose: 10 mg Trazodone HCl (Trazodone Hcl 50 Mg Tablet) 50 mg PO BEDTIME PRN PRN Reason: Insomnia Last Admin: 02/13/24 20:38 Dose: 50 mg Allergies Allergies Allergy/AdvReac Type Severity Reaction Status Date / Time No Known Allergies Allergy Verified 12/31/23 00:14 Assessment & Plan Assessment & Plan (1) Major neurocognitive disorder: Status: Acute Code(s): F03.90 - Unspecified dementia, unspecified severity, without behavioral disturbance, psychotic disturbance, mood disturbance, and anxiety (2) Schizoaffective disorder: Status: Acute Code(s): F25.9 - Schizoaffective disorder, unspecified Assessment and Plan: with primarily erotomatic delusions (she does reports hearing voices) Plan Pt is a 78-year-old female with a PMH significant for?osteoporosis, depression, and schizophrenia who is admitted to [facility] for increasing anxiety and nervousness. y Plan 01/04/continue tx plan 01/05. continue tx. 01/06 continue tx. will switch to risperidone to target AH. 0.5mg po BID. 01/07 continue tx. 01/08: stable. continue current mgmt. 01/09: feeling slowed down, which may indicate progress in getting mood disorder under control. appears well. continue current mgmt. 01/10 continue tx. 01/11 continue tx. 01/12 continue tx 01/13 may increase risperidone to 0.5mg po daily and 1mg po qhs- monitor orth hotn 01/15 Patient pleasant on approach. Said she had a toothache but that Tylenol has cleared up. Sole Stainer and nurse looked where she indicated to take was, left upper molar and no signs of abscess. Patient did not take Risperdal this morning. On inquiry she said she heard on the radio that there was a Ban on all Risperdal. However telegraphic typewriter repairer discussed this with her and reassured her that there is no Ban and patient thus said she would resume taking the medication. 01/17 continue current medications. may discuss alternative 01/18 low dose haldol added 01/19 pt agreed to restart risperidone as voices were better controlled with this medication. 01/20 continue tx. 01/21 continue tx. 01/23/2024: Continue current regimen and plans 01/24/2024: Continue current regimen and plans 01/24 switch risperidone to paliperidone 01/25 continue tx. 01/26 continue tx. 01/27 continue tx. 01/28 discontinue Invega start Haldol 1 mg p.o. b.i.d. 01/30/2024 Continue plan of care encourage medication discharge planning 01/31/2024 Patient refusing Haldol not behaviorally disruptive continue plan of care 01/31 continue tx. 02/01 continue tx. 02/02 continue tx. 02/03 continue tx. 02/04 continue tx. 02/05 continue same treatment 02/06 continue same treatment 02/07 continue tx. 02/08 continue tx. 02/09 continue tx. awaiting placement 02/10 continue tx. 02/11 continue treatment 02/12: no changes 02/13: no changes 02/14 no changes Reason for continued inpatient stay Substantial Risk for: inability to function, rapid decompensation and med/psych decompensation Time Spent With Patient Time: Total time managing care of this patient today __20__ minutes.
[2024-02-15 18:00] VITALS: BP 169/69; PULSE 92; RESP 18; TEMP 36.2; O2SAT 98
[2024-02-15] MEDS: OLANZapine ODT 10 MG TAB.RAPDIS TRANSLINGU (20:51)
[2024-02-16 08:00] VITALS: BP 156/69; PULSE 100; RESP 18; TEMP 36.2; O2SAT 97
--- NOTE | 2024-02-16 10:56 | HO.PSYCHPN ---
Subjective Subjective Date of Service: 02/16/24 Reason For Visit: inability to care for self Subjective Notes: Conditional Voluntary Interim History: The nursing staff reported the patient had been compliant with treatment, she remains pleasant cooperative confused and psychotic at times. On interview the patient denies new symptoms, waiting for placement. Mental Status Exam Mental Status Exam Patient Appearance: Well Grooomed and Appropriate Patient Orientation: Person and Situation Level of Consciousness: Awake and Appropriate Patient Behavior: Appropriate and Passive Mood Description: Withdrawn Affect Description: Constricted Patient Cognition Impaired: Yes Ability to Follow Directions: Good Speech Pattern: Clear Hallucinations: None Delusions: Ideas of Reference Thought Process: Distracted and Slowed Thinking Thought Content: positive for [place] and positive for Poverty of Content Judgement: Poor Diagnostics Vital Signs (24Hr): Vital Signs - 24 hr 02/15/24 18:00 02/16/24 08:00 Temperature 97.1 F 97.1 F Pulse Rate 92 100 Respiratory Rate 18 18 Blood Pressure 169/69 H 156/69 H Pulse Oximetry 98 97 Oxygen Delivery Method Room Air Room Air BMI result Body Mass Index 18.7 Labs 12/31/23 06:38 Imaging Radiology Impressions: ITS Impressions Head CT 01/01/24 09:46 IMPRESSION: There are scattered chronic small vessel ischemic changes within the periventricular white matter. Otherwise unremarkable examination. No evidence of acute territorial infarct or hemorrhage. Medications Medications Current Medications Acetaminophen (Acetaminophen 325 Mg Tablet) 650 mg PO Q6H PRN PRN Reason: Headache/Pain Mild Scale (1-3) Last Admin: 02/01/24 20:05 Dose: 650 mg Al Hydroxide/Mg Hydroxide (Magnesium Hydrox/Alum Hydrox 30 Ml Oral.Susp) 30 ml PO Q6H PRN PRN Reason: Heartburn/Nausea Famotidine (Famotidine 20 Mg Tablet) 20 mg PO BEDTIME JAMI Last Admin: 02/15/24 20:39 Dose: Not Given Hydroxyzine HCl (Hydroxyzine Hcl 25 Mg Tablet) 25 mg PO Q6H PRN PRN Reason: Anxiety Last Admin: 02/13/24 20:37 Dose: 25 mg Magnesium Hydroxide (Milk Of Magnesia 30 Ml Oral.Susp) 30 ml PO DAILY PRN PRN Reason: Constipation Olanzapine (Olanzapine Odt 10 Mg Tab.Rapdis) 10 mg TRANSLINGU BEDTIME JAMI Last Admin: 02/15/24 20:51 Dose: 10 mg Trazodone HCl (Trazodone Hcl 50 Mg Tablet) 50 mg PO BEDTIME PRN PRN Reason: Insomnia Last Admin: 02/13/24 20:38 Dose: 50 mg Allergies Allergies Allergy/AdvReac Type Severity Reaction Status Date / Time No Known Allergies Allergy Verified 12/31/23 00:14 Assessment & Plan Assessment & Plan (1) Major neurocognitive disorder: Status: Acute Code(s): F03.90 - Unspecified dementia, unspecified severity, without behavioral disturbance, psychotic disturbance, mood disturbance, and anxiety (2) Schizoaffective disorder: Status: Acute Code(s): F25.9 - Schizoaffective disorder, unspecified Assessment and Plan: with primarily erotomatic delusions (she does reports hearing voices) Plan Pt is a 78-year-old female with a PMH significant for?osteoporosis, depression, and schizophrenia who is admitted to [facility] for increasing anxiety and nervousness. y Plan 01/04/continue tx plan 01/05. continue tx. 01/06 continue tx. will switch to risperidone to target AH. 0.5mg po BID. 01/07 continue tx. 01/08: stable. continue current mgmt. 01/09: feeling slowed down, which may indicate progress in getting mood disorder under control. appears well. continue current mgmt. 01/10 continue tx. 01/11 continue tx. 01/12 continue tx 01/13 may increase risperidone to 0.5mg po daily and 1mg po qhs- monitor orth hotn 01/15 Patient pleasant on approach. Said she had a toothache but that Tylenol has cleared up. Scroll Shear Operator and nurse looked where she indicated to take was, left upper molar and no signs of abscess. Patient did not take Risperdal this morning. On inquiry she said she heard on the radio that there was a Ban on all Risperdal. However inspector automatic typewriter discussed this with her and reassured her that there is no Ban and patient thus said she would resume taking the medication. 01/17 continue current medications. may discuss alternative 01/18 low dose haldol added 01/19 pt agreed to restart risperidone as voices were better controlled with this medication. 01/20 continue tx. 01/21 continue tx. 01/23/2024: Continue current regimen and plans 01/24/2024: Continue current regimen and plans 01/24 switch risperidone to paliperidone 01/25 continue tx. 01/26 continue tx. 01/27 continue tx. 01/28 discontinue Invega start Haldol 1 mg p.o. b.i.d. 01/30/2024 Continue plan of care encourage medication discharge planning 01/31/2024 Patient refusing Haldol not behaviorally disruptive continue plan of care 01/31 continue tx. 02/01 continue tx. 02/02 continue tx. 02/03 continue tx. 02/04 continue tx. 02/05 continue same treatment 02/06 continue same treatment 02/07 continue tx. 02/08 continue tx. 02/09 continue tx. awaiting placement 02/10 continue tx. 02/11 continue treatment 02/12: no changes 02/13: no changes 02/14 no changes 02/15 no changes waiting for placement Reason for continued inpatient stay Substantial Risk for: inability to function, rapid decompensation and med/psych decompensation Time Spent With Patient Time: Total time managing care of this patient today __20__ minutes.
[2024-02-16 19:30] VITALS: BP 137/63; PULSE 89; RESP 16; TEMP 36.1; O2SAT 98
[2024-02-17 08:00] VITALS: BP 121/53; PULSE 90; RESP 18; O2SAT 97
--- NOTE | 2024-02-17 09:35 | MHC.CLN ---
F/U DIET=REGULAR. RECEIVES ENSURE SUPPLEMENT BID (700 KCALS, 40 G PROTEIN). INTAKE VARIABLE. CONTINUE REGULAR DIET WITH SUPPLEMENT. ENCOURAGE PO ABLE. RD TO FOLLOW WEEKLY.
--- NOTE | 2024-02-17 13:56 | HO.PSYCHPN ---
Subjective Subjective Date of Service: 02/17/24 Reason For Visit: inability to care for self Subjective Notes: Conditional Voluntary Interim History: The nursing staff reported the patient remains with flat affect. The licensed master social worker reported the outburst will take her this week. On interview the patient denies new symptoms pleasant, confused easily redirectable. Compliant with Zyprexa. Mental Status Exam Mental Status Exam Patient Appearance: Appropriate Patient Orientation: Person Level of Consciousness: Awake Patient Behavior: Guarded and Passive Mood Description: Suspicious Affect Description: Constricted Patient Cognition Impaired: Yes Ability to Follow Directions: Good Speech Pattern: Clear Hallucinations: None Delusions: Paranoid Ideation Thought Process: Distracted and Slowed Thinking Thought Content: positive for [place] and positive for Poverty of Content Judgement: Poor Diagnostics Vital Signs (24Hr): Vital Signs - 24 hr 02/16/24 19:30 02/17/24 08:00 Temperature 97.0 F Pulse Rate 89 90 Respiratory Rate 16 18 Blood Pressure 137/63 121/53 L Pulse Oximetry 98 97 Oxygen Delivery Method Room Air Room Air BMI result Body Mass Index 18.7 Labs 12/31/23 06:38 Imaging Radiology Impressions: ITS Impressions Head CT 01/01/24 09:46 IMPRESSION: There are scattered chronic small vessel ischemic changes within the periventricular white matter. Otherwise unremarkable examination. No evidence of acute territorial infarct or hemorrhage. Medications Medications Current Medications Acetaminophen (Acetaminophen 325 Mg Tablet) 650 mg PO Q6H PRN PRN Reason: Headache/Pain Mild Scale (1-3) Last Admin: 02/01/24 20:05 Dose: 650 mg Al Hydroxide/Mg Hydroxide (Magnesium Hydrox/Alum Hydrox 30 Ml Oral.Susp) 30 ml PO Q6H PRN PRN Reason: Heartburn/Nausea Famotidine (Famotidine 20 Mg Tablet) 20 mg PO BEDTIME JAMI Last Admin: 02/16/24 22:16 Dose: Not Given Hydroxyzine HCl (Hydroxyzine Hcl 25 Mg Tablet) 25 mg PO Q6H PRN PRN Reason: Anxiety Last Admin: 02/13/24 20:37 Dose: 25 mg Magnesium Hydroxide (Milk Of Magnesia 30 Ml Oral.Susp) 30 ml PO DAILY PRN PRN Reason: Constipation Olanzapine (Olanzapine Odt 10 Mg Tab.Rapdis) 10 mg TRANSLINGU BEDTIME JAMI Last Admin: 02/16/24 22:16 Dose: Not Given Trazodone HCl (Trazodone Hcl 50 Mg Tablet) 50 mg PO BEDTIME PRN PRN Reason: Insomnia Last Admin: 02/13/24 20:38 Dose: 50 mg Allergies Allergies Allergy/AdvReac Type Severity Reaction Status Date / Time No Known Allergies Allergy Verified 12/31/23 00:14 Assessment & Plan Assessment & Plan (1) Major neurocognitive disorder: Status: Acute Code(s): F03.90 - Unspecified dementia, unspecified severity, without behavioral disturbance, psychotic disturbance, mood disturbance, and anxiety (2) Schizoaffective disorder: Status: Acute Code(s): F25.9 - Schizoaffective disorder, unspecified Assessment and Plan: with primarily erotomatic delusions (she does reports hearing voices) Plan Pt is a 78-year-old female with a PMH significant for?osteoporosis, depression, and schizophrenia who is admitted to [facility] for increasing anxiety and nervousness. y Plan 01/04/continue tx plan 01/05. continue tx. 01/06 continue tx. will switch to risperidone to target AH. 0.5mg po BID. 01/07 continue tx. 01/08: stable. continue current mgmt. 01/09: feeling slowed down, which may indicate progress in getting mood disorder under control. appears well. continue current mgmt. 01/10 continue tx. 01/11 continue tx. 01/12 continue tx 01/13 may increase risperidone to 0.5mg po daily and 1mg po qhs- monitor orth hotn 01/15 Patient pleasant on approach. Said she had a toothache but that Tylenol has cleared up. Drill Hand and nurse looked where she indicated to take was, left upper molar and no signs of abscess. Patient did not take Risperdal this morning. On inquiry she said she heard on the radio that there was a Ban on all Risperdal. However typewriter ribbon winder discussed this with her and reassured her that there is no Ban and patient thus said she would resume taking the medication. 01/17 continue current medications. may discuss alternative 01/18 low dose haldol added 01/19 pt agreed to restart risperidone as voices were better controlled with this medication. 01/20 continue tx. 01/21 continue tx. 01/23/2024: Continue current regimen and plans 01/24/2024: Continue current regimen and plans 01/24 switch risperidone to paliperidone 01/25 continue tx. 01/26 continue tx. 01/27 continue tx. 01/28 discontinue Invega start Haldol 1 mg p.o. b.i.d. 01/30/2024 Continue plan of care encourage medication discharge planning 01/31/2024 Patient refusing Haldol not behaviorally disruptive continue plan of care 01/31 continue tx. 02/01 continue tx. 02/02 continue tx. 02/03 continue tx. 02/04 continue tx. 02/05 continue same treatment 02/06 continue same treatment 02/07 continue tx. 02/08 continue tx. 02/09 continue tx. awaiting placement 02/10 continue tx. 02/11 continue treatment 02/12: no changes 02/13: no changes 02/14 no changes 02/15 no changes waiting for placement 02/16 no changes. Scripts to [facility] sent today. Reason for continued inpatient stay Substantial Risk for: inability to function, rapid decompensation and med/psych decompensation Time Spent With Patient Time: Total time managing care of this patient today ___20_ minutes.
[2024-02-17] MEDS: OLANZapine ODT 10 MG TAB.RAPDIS TRANSLINGU (22:18)
[2024-02-17] MEDS: traZODone HCL 50 MG TABLET PO (22:19)
[2024-02-17] MEDS: hydrOXYzine HCL 25 MG TABLET PO (22:19)
[2024-02-17] MEDS: Famotidine 20 MG TABLET PO (22:19)
[2024-02-18 07:00] VITALS: BMI 19.2
[2024-02-18 08:00] VITALS: BP 137/58; PULSE 96; RESP 18; TEMP 36.2; O2SAT 97
--- NOTE | 2024-02-18 14:40 | P.PNPSI_ITS ---
Subjective Subjective Date of Service: 02/18/24 Reason For Visit: inability to care for self Subjective Notes: Conditional Voluntary Interim History: The nursing staff reported the patient had been self dialogue in, no changes in her mental status. On interview the patient remains pleasant cooperative and confused at times, she is going to be discharged tomorrow. Mental Status Exam Mental Status Exam Patient Appearance: Well Grooomed and Appropriate Patient Orientation: Person and Situation Level of Consciousness: Awake and Appropriate Patient Behavior: Guarded and Passive Mood Description: Withdrawn Affect Description: Constricted Patient Cognition Impaired: Yes Ability to Follow Directions: Good Speech Pattern: Clear Hallucinations: Auditory Delusions: Paranoid Ideation and Ideas of Reference Thought Process: Distracted and Slowed Thinking Thought Content: positive for [place] and positive for Poverty of Content Judgement: Fair Diagnostics Vital Signs (24Hr): Vital Signs - 24 hr 02/18/24 08:00 Temperature 97.2 F Pulse Rate 96 Respiratory Rate 18 Blood Pressure 137/58 L Pulse Oximetry 97 Oxygen Delivery Method Room Air BMI result Body Mass Index 19.2 Labs 12/31/23 06:38 Imaging Radiology Impressions: ITS Impressions Head CT 01/01/24 09:46 IMPRESSION: There are scattered chronic small vessel ischemic changes within the periventricular white matter. Otherwise unremarkable examination. No evidence of acute territorial infarct or hemorrhage. Medications Medications Current Medications Acetaminophen (Acetaminophen 325 Mg Tablet) 650 mg PO Q6H PRN PRN Reason: Headache/Pain Mild Scale (1-3) Last Admin: 02/01/24 20:05 Dose: 650 mg Al Hydroxide/Mg Hydroxide (Magnesium Hydrox/Alum Hydrox 30 Ml Oral.Susp) 30 ml PO Q6H PRN PRN Reason: Heartburn/Nausea Famotidine (Famotidine 20 Mg Tablet) 20 mg PO BEDTIME [facility] Last Admin: 02/17/24 22:19 Dose: 20 mg Hydroxyzine HCl (Hydroxyzine Hcl 25 Mg Tablet) 25 mg PO Q6H PRN PRN Reason: Anxiety Last Admin: 02/17/24 22:19 Dose: 25 mg Magnesium Hydroxide (Milk Of Magnesia 30 Ml Oral.Susp) 30 ml PO DAILY PRN PRN Reason: Constipation Olanzapine (Olanzapine Odt 10 Mg Tab.Rapdis) 10 mg TRANSLINGU BEDTIME JAMI Last Admin: 02/17/24 22:18 Dose: 10 mg Trazodone HCl (Trazodone Hcl 50 Mg Tablet) 50 mg PO BEDTIME PRN PRN Reason: Insomnia Last Admin: 02/17/24 22:19 Dose: 50 mg Allergies Allergies Allergy/AdvReac Type Severity Reaction Status Date / Time No Known Allergies Allergy Verified 12/31/23 00:14 Assessment & Plan Assessment & Plan (1) Major neurocognitive disorder: Status: Acute Code(s): F03.90 - Unspecified dementia, unspecified severity, without behavioral disturbance, psychotic disturbance, mood disturbance, and anxiety (2) Schizoaffective disorder: Status: Acute Code(s): F25.9 - Schizoaffective disorder, unspecified Assessment and Plan: with primarily erotomatic delusions (she does reports hearing voices) Plan Pt is a 78-year-old female with a PMH significant for?osteoporosis, depression, and schizophrenia who is admitted to [facility] for increasing anxiety and nervousness. y Plan 01/04/continue tx plan 01/05. continue tx. 01/06 continue tx. will switch to risperidone to target AH. 0.5mg po BID. 01/07 continue tx. 01/08: stable. continue current mgmt. 01/09: feeling slowed down, which may indicate progress in getting mood disorder under control. appears well. continue current mgmt. 01/10 continue tx. 01/11 continue tx. 01/12 continue tx 01/13 may increase risperidone to 0.5mg po daily and 1mg po qhs- monitor orth hotn 01/15 Patient pleasant on approach. Said she had a toothache but that Tylenol has cleared up. Fiscal Technician and nurse looked where she indicated to take was, left upper molar and no signs of abscess. Patient did not take Risperdal this morning. On inquiry she said she heard on the radio that there was a Ban on all Risperdal. However proposal lead writer discussed this with her and reassured her that there is no Ban and patient thus said she would resume taking the medication. 01/17 continue current medications. may discuss alternative 01/18 low dose haldol added 01/19 pt agreed to restart risperidone as voices were better controlled with this medication. 01/20 continue tx. 01/21 continue tx. 01/23/2024: Continue current regimen and plans 01/24/2024: Continue current regimen and plans 01/24 switch risperidone to paliperidone 01/25 continue tx. 01/26 continue tx. 01/27 continue tx. 01/28 discontinue Invega start Haldol 1 mg p.o. b.i.d. 01/30/2024 Continue plan of care encourage medication discharge planning 01/31/2024 Patient refusing Haldol not behaviorally disruptive continue plan of care 01/31 continue tx. 02/01 continue tx. 02/02 continue tx. 02/03 continue tx. 02/04 continue tx. 02/05 continue same treatment 02/06 continue same treatment 02/07 continue tx. 02/08 continue tx. 02/09 continue tx. awaiting placement 02/10 continue tx. 02/11 continue treatment 02/12: no changes 02/13: no changes 02/14 no changes 02/15 no changes waiting for placement 02/16 no changes. Scripts to [facility] sent today. 02/17 same treatment Reason for continued inpatient stay Substantial Risk for: inability to function, rapid decompensation and med/psych decompensation Time Spent With Patient Time: Total time managing care of this patient today __20__ minutes.
[2024-02-18 18:00] VITALS: BP 157/70; PULSE 95; RESP 18; TEMP 36.6; O2SAT 99
[2024-02-18] MEDS: Famotidine 20 MG TABLET PO (20:58)
[2024-02-18] MEDS: hydrOXYzine HCL 25 MG TABLET PO (20:58)
[2024-02-18] MEDS: OLANZapine ODT 10 MG TAB.RAPDIS TRANSLINGU (20:58)
[2024-02-18] MEDS: traZODone HCL 50 MG TABLET PO (20:58)
[2024-02-19 06:00] VITALS: BP 113/55; PULSE 97; RESP 16; TEMP 35.6; O2SAT 94
--- NOTE | 2024-02-19 08:21 | PM.PSYDC ---
DS: Providers Provider Date of Service: 02/19/24 Date of admission: 12/30/23 18:44 Date of discharge: 02/19/24 Primary care physician: Unknown Physician Consults: 12/31/23 00:24 Consult to Hospitalist Routine Comment: Consulting Provider: Hospitalist Reason For Exam: adm physical DS: Diagnosis Discharge Diagnosis (1) Major neurocognitive disorder: Status: Acute (2) Schizoaffective disorder: Status: Acute DS: Medications Discharge Medications Home Medications: Home Medications ?Medication ?Instructions ?Recorded ?Confirmed calcium citrate 1,000 mg tablet 2,400 mg PO DAILY 12/30/23 12/30/23 olanzapine 2.5 mg tablet (Zyprexa) 2.5 mg PO BEDTIME 12/30/23 12/30/23 Previous Rx's ?Medication ?Instructions ?Recorded famotidine 20 mg tablet 20 mg PO BEDTIME 30 days #30 tabs 02/17/24 olanzapine 10 mg tablet (Zyprexa) 10 mg PO BEDTIME #30 tabs 02/17/24 trazodone 50 mg tablet 50 mg PO BEDTIME #30 tabs 02/18/24 Mental Status Exam Mental Status Exam Patient Appearance: Well Grooomed and Appropriate Patient Orientation: Person and Situation Level of Consciousness: Awake and Appropriate Patient Behavior: Guarded and Passive Mood Description: Calm and Happy Affect Description: Constricted Patient Cognition Impaired: Yes Ability to Follow Directions: Fair Speech Pattern: Clear Hallucinations: None Delusions: Ideas of Reference Thought Process: Distracted and Slowed Thinking Thought Content: positive for [place], positive for [place] and positive for Poverty of Content Judgement: Poor Data Imaging Diagnostic Imaging Impressions Head CT 01/01/24 09:46 IMPRESSION: There are scattered chronic small vessel ischemic changes within the periventricular white matter. Otherwise unremarkable examination. No evidence of acute territorial infarct or hemorrhage. DS: Summary Hospital Course Hospital Course: Ms. Mistry is a 78 year-old with dementia, prior hx of delusional disorder who initially self presented to [facility] on 12/24 reporting a fall. In the ED, she was described as unable to provide further information in terms of the fall and reported things like that she was breast feeding. She was not oriented to place, vaguely to situation. She was medically admitted to rule out delayed brain bleed. Medical work up in ED, included head CT which did not show acute pathology- no intracraneal bleed, no mass nor hydrocephalus. CBC without leukocitosys, CMP without electrolyte abnormalities. UA no signs of UTI. On the intake interview, pt presented as pleasant. She was unable to tell why she was on the unit and states someone responsible recommended that I come here. Furthermore, pt reported she thinks she has been living here on the unit probably for about one year. She stated things get lost here often. She denies any concerns. When asked about suicidal or homicidal ideation, she adamantly denied any plan or intent or thoughts to harm herself. She denied hearing or seeing things. She did not appear internally preoccupied more than with severe memory impairments and confabulation. She denied any physical concerns. While she was in the unit, the patient was seen responding to internal stimuli, pleasant cooperative and noncompliant with antipsychotics. Eventually the patient started taking Zyprexa and some of her psychotic symptoms improved. We did cognitive assessments and the patient was severely demented so we decided to transfer her to long-term care. The patient was accepted to a long-term facility, she denies any safety concerns and she was ready for discharge. Time spent discussing smoking cessation with patient: 3 to 10 minutes Status at Discharge Cognitive/behavioral status at discharge: Impaired at baseline Functional status at discharge: independent ambulation Overall status at discharge: patient is back to baseline Time Spent with Patient Time attestation: Total time managing care of this patient today __30__ minutes. Time spent: Less than 30 minutes Discharge Plan Discharge Patient Disposition: Xfer LT Discharge Diagnosis: Schizoaffective disorder Dementia Referrals: Dr Miller [facility] [Other] - 02/23/24 10:10 am (Your follow up appointment has been scheduled for Thursday02/23/24 at 10:10am with Braxton Mcknight N.P) [facility] [Other] - 02/19/24 11:00 am (Transfer to [facility] on Thursday02/19/24. ) Inderjit Carbajal [facility] [Other] - 03/02/24 12:30 pm (Your next appointment with Inderjit Carbajal is for 03/02/24 at 12:30 at the [facility]. ) Discharge Medications: New famotidine 20 mg Tablet 20 mg PO BEDTIME 30 Days Qty: 30 0RF olanzapine [Zyprexa] 10 mg tablet 10 mg PO BEDTIME Qty: 30 0RF trazodone 50 mg tablet 50 mg PO BEDTIME Qty: 30 0RF Discontinued olanzapine [Zyprexa] 2.5 mg tablet 2.5 mg PO BEDTIME calcium citrate 1,000 mg Tablet 2,400 mg PO DAILY Discharge Orders: Discharge Order (Routine); Ordered 02/19/24 Ordered By: Dick Dinero Diet: Advance to usual diet Activity on Discharge: As tolerated Stand Alone Forms: Patient Portal Discharge page Print Language: Nam[place] Care Plan Goals: Care plan goals achieved in this admission Health Concerns: Continue treatment with primary care physician Plan of Treatment: Continue psychiatric treatment as an outpatient Assessment: Elderly female with a past history of psychosis who was brought into the facility grossly demented and disoriented. The patient improved with a low dose of Zyprexa. The patient is unable to take care of herself so she was transferred to long-term care at the moment of discharge there were no safety concerns.
== END 2024-02-19 11:00 | DRG 885 ==
PROVIDERS: Psychiatry & Neurology Psychiatry; Admitting Provider Psychiatry & Neurology Psychiatry; Visit Provider Psychiatry & Neurology Psychiatry
DX: F25.9 Schizoaffective disorder, unspecified (principal); F03.90 Unspecified dementia, unspecified severity, without behavioral disturbance, psychotic disturbance, mood disturbance, and anxiety; M81.0 Age-related osteoporosis without current pathological fracture; Z91.148 Patient's other noncompliance with medication regimen for other reason; Z79.899 Other long term (current) drug therapy
CPT/HCPCS: 36415; 70450; 80053; 80061

== ENCOUNTER → 2023-12-30 18:44 | Outpatient (BNV) | payer MEDICARE, SELFPAY | PROVIDERS: Admitting Provider Psychiatry & Neurology Psychiatry; Visit Provider Psychiatry & Neurology Psychiatry | DX: F25.0 Schizoaffective disorder, bipolar type (principal); F03.90 Unspecified dementia, unspecified severity, without behavioral disturbance, psychotic disturbance, mood disturbance, and anxiety | CPT/HCPCS: 99231; 99499 ==

== ENCOUNTER → 2023-12-30 18:44 | Outpatient (BNV) | payer MEDICARE, SELFPAY | PROVIDERS: Admitting Provider Psychiatry & Neurology Psychiatry; Visit Provider Social Worker | DX: F25.8 Other schizoaffective disorders (principal); F03.90 Unspecified dementia, unspecified severity, without behavioral disturbance, psychotic disturbance, mood disturbance, and anxiety | CPT/HCPCS: 90792; 99231; 99232; 99238 ==

== ENCOUNTER → 2023-12-30 18:44 | Outpatient (BNV) | payer MEDICARE, SELFPAY | PROVIDERS: Admitting Provider Psychiatry & Neurology Psychiatry; Visit Provider Student in an Organized Health Care Education/Training Program | DX: Z02.2 Encounter for examination for admission to residential institution (principal) | CPT/HCPCS: 99429 ==